=== PATIENT | female | born 1950 | race Caucasian/White ===

== ENCOUNTER → 2016-06-02 | Outpatient (CLI) | payer BC ==
[~2016-06-02] MED LIST: CHOL200010 PO; ESCI10TA17 PO; IBUP-1451 PO; LEVO88TA PO
--- NOTE | 2016-06-02 16:38 | MAMMOGRAPHY REPORT ---
BILATERAL DIGITAL SCREENING MAMMOGRAM WITH CAD: 06/02/2016 CLINICAL HISTORY: Routine screening. Patient has no complaints. TECHNIQUE: Bilateral CC and MLO views were obtained. Current study was also evaluated with a Comput er Aided Detection (CAD) system. COMPARISON: Comparison is made to exams dated: 05/29/2015 mammogram, 05/24/2014 mammogram, 05/20/2013 mammogram, 04/12/2012 mammogram, 04/02/2010 mammogram, and 03/22/2009 mammogram - [facility]. BREAST COMPOSITION: The tissue of both breasts is almost entirely fatty. FINDINGS: There is a stable intramammary lymph node in the right upper outer quadrant. Scattered st able benign-appearing microcalcifications bilaterally. No suspicious mass, architectural distortion or cluster of microcalcifications is seen. IMPRESSION: ACR BI-RADS CATEGORY 1: NEGATIVE There is no mammographic evidence of malignancy. A 1 year screening mammogram is recommended. The p atient will receive written notification of the results. Approximately 10% of breast cancers are not detected with mammography. A negative mammographic repor t should not delay biopsy if a clinically suggestive mass is present. Ericka Deutsch M.D. ay/:06/02/2016 16:09:56 Electrician Maintenance: Edwige DHILLON([place])(Val), [facility] letter sent: Normal 1/2 BI-RADS Code: ACR BI-RADS Category 1: Negative
== END | disposition home or self-care (01) ==
LOC: C.MAMM 08:07
PROVIDERS: ATTEND Internal Medicine
DX: Z12.31 Encounter for screening mammogram for malignant neoplasm of breast (principal)

== ENCOUNTER → 2016-12-05 | Outpatient (CLI) | payer BC ==
--- NOTE | 2016-12-05 12:03 | DIAGNOSTIC IMAGING REPORT ---
CT LUNG SCREENING, LOW DOSE WITH COMPUTER-AIDED DETECTION (CAD) CLINICAL HISTORY: Smoking history. Family history of lung cancer. COMPARISON STUDY: Screening low dose chest CT December 11, 2015. CT DOSE: 82.18 mGy.cm TECHNIQUE: Low-dose helical CT was acquired without intravenous contrast from lung apices to bases and reconstructed at 2.5 mm every 2 mm. CAD was utilized for this study. A dose lowering technique was utilized adhering to the principles of ALARA. FINDINGS: No enlarged axillary, mediastinal or hilar lymph nodes are present. The heart is moderately enlarged. There is no pericardial effusion. No suspicious nodules are present. Mild groundglass opacity suggest atelectasis. There is no consolidation to suggest pneumonia. Bony thorax is unremarkable. There are postoperative findings involving the stomach. IMPRESSION: 1. No suspicious pulmonary nodules. 2. Moderate cardiomegaly. 3. No acute intrathoracic findings. CAD FINDINGS: Overall Lung RADS Category: 1 Lung RADS Management Recommendation: Continue routine annual screening on December 05, 2017. Lung RADS Follow Up Date: December 05, 2017. Lung RADS Nodule ID: Electronically signed by: Ap Deng M.D. 12/05/2016 12:01 PM Dictated Date/Time: 12/05/2016 11:50 AM
== END | disposition home or self-care (01) ==
LOC: C.CTS 10:47
PROVIDERS: ATTEND Internal Medicine Pulmonary Disease
DX: Z80.1 Family history of malignant neoplasm of trachea, bronchus and lung (principal); I51.7 Cardiomegaly

== ENCOUNTER 2017-04-20 20:39 | Emergency (ER) | payer BC ==
[~2017-04-20] VITALS: Ht 165.1 cm; Wt 115.0 kg
[2017-04-20] MEDS ORDERED: ONDANSETRON INJ 2 MG/ML 2 ML VIAL IV STA (20:44)
[2017-04-20] MEDS ORDERED: MoRPHine SULFATE 4 MG/ML 1 ML CARP\\VIAL IV PRN (20:45)
[2017-04-20 20:46] VITALS: TEMP 36.8; Ht 165.1 cm; Wt 115.0 kg
[2017-04-20] MEDS ORDERED: LIDOCAINE/EPINEPH/TETRACAINE 1 EA SYR EXT STA (20:47)
[2017-04-20] MEDS ORDERED: MULT-513 PO (21:02)
[2017-04-20] MEDS ORDERED: LXP10 PO (21:02)
[2017-04-20] MEDS ORDERED: LEVO100T7 PO (21:02)
[2017-04-20] MEDS ORDERED: ATV5X PO (21:02)
[2017-04-20 21:08] LABS: BASO % 0.3 %; BASO ABS # 0.03 K/uL (0-0.2); EOS % 5.9 %; EOS ABS # 0.56 K/uL (0-0.5); HEMATOCRIT 42.7 % (37-47); HEMOGLOBIN 14.2 g/dL (12.0-16.0); IG# 0.02 K/uL (0.00-0.02); LYMPH ABS # 2.67 K/uL (1.2-3.4); MEAN CORPUSCULAR HEMOGLOBIN 29.3 pg (25-34); MEAN CORPUSCULAR HGB CONC 33.3 g/dl (32-36); MEAN PLATELET VOLUME 11.8 fL (7.4-10.4); MONO % 7.4 %; MONO ABS # 0.71 K/uL (0.11-0.59); NEUT % 58.2 %; NEUT ABS # 5.56 K/uL (1.4-6.5); PLATELET COUNT 232 K/uL (130-400); RED CELL DISTRIBUTION WIDTH CV 13.6 % (11.5-14.5); RED CELL DISTRIBUTION WIDTH SD 43.6 fL (36.4-46.3); WHITE BLOOD COUNT 9.55 K/uL (4.8-10.8)
[2017-04-20 21:21] LABS: PTT PATIENT 25.9 SECONDS (21.0-31.0)
[2017-04-20 21:22] LABS: ALBUMIN 3.5 gm/dl (3.4-5.0); ALT/SGPT 25 U/L (12-78); BLOOD UREA NITROGEN 25 mg/dl (7-18); CARBON DIOXIDE 27 mmol/L (21-32); CREATININE 1.07 mg/dl (0.60-1.20); GLUCOSE 95 mg/dl (70-99); POTASSIUM 3.7 mmol/L (3.5-5.1); SODIUM 141 mmol/L (136-145)
[2017-04-20 21:24] LABS: ALKALINE PHOSPHATASE 82 U/L (45-117); AST/SGOT 21 U/L (15-37); TOTAL PROTEIN 6.8 gm/dl (6.4-8.2)
--- NOTE | 2017-04-20 21:25 | DIAGNOSTIC IMAGING REPORT ---
R WRIST MIN 3 VIEWS ROUTINE CLINICAL HISTORY: fall trauma COMPARISON: None. DISCUSSION: Evidence for prior plate fixation of the distal radius. Small avulsion ulnar styloid considered old. Moderate degenerative changes throughout. No well-defined acute bony abnormality. Mild soft tissue edema. There is no evidence for soft tissue swelling. IMPRESSION: Mild soft tissue edema. Postoperative change. No acute bony abnormality. The above report was generated using voice recognition software. It may contain grammatical, syntax or spelling errors. Electronically signed by: Christian Red M.D. 04/20/2017 9:24 PM Dictated Date/Time: 04/20/2017 9:23 PM
--- NOTE | 2017-04-20 21:26 | DIAGNOSTIC IMAGING REPORT ---
CHEST ONE VIEW PORTABLE CLINICAL HISTORY: fall trauma COMPARISON STUDY: 01/18/2015 FINDINGS: The bones soft tissues and hemidiaphragms are normal. The cardiomediastinal silhouette is normal. The lungs are clear. The pulmonary vasculature is normal. IMPRESSION: Negative chest. The above report was generated using voice recognition software. It may contain grammatical, syntax or spelling errors. Electronically signed by: Christian Red M.D. 04/20/2017 9:24 PM Dictated Date/Time: 04/20/2017 9:24 PM
--- NOTE | 2017-04-20 21:29 | DIAGNOSTIC IMAGING REPORT ---
R HAND MIN 3 VIEWS ROUTINE CLINICAL HISTORY: fall trauma COMPARISON: None. DISCUSSION: No evidence for acute bony pathology. PROCEDURE: Described as a degenerative and postoperative change. Significant degenerative change first carpometacarpal joint. Mild soft tissue edema. IMPRESSION: Soft tissue edema. No acute bony abnormality. The above report was generated using voice recognition software. It may contain grammatical, syntax or spelling errors. Electronically signed by: Christian Red M.D. 04/20/2017 9:28 PM Dictated Date/Time: 04/20/2017 9:25 PM
--- NOTE | 2017-04-20 21:35 | DIAGNOSTIC IMAGING REPORT ---
L HAND MIN 3 VIEWS ROUTINE CLINICAL HISTORY: fall trauma COMPARISON: None. DISCUSSION: Mild generalized degenerative change. Moderate degenerative change first carpometacarpal joint. Small old avulsion dorsal aspect of the carpal bones. Margins are well corticated. Soft tissue edema. IMPRESSION: Degenerative change and soft tissue edema. No acute bony abnormality. The above report was generated using voice recognition software. It may contain grammatical, syntax or spelling errors. Electronically signed by: Christian Red M.D. 04/20/2017 9:34 PM Dictated Date/Time: 04/20/2017 9:33 PM
--- NOTE | 2017-04-20 21:38 | DIAGNOSTIC IMAGING REPORT ---
L WRIST MIN 3 VIEWS ROUTINE CLINICAL HISTORY: fall trauma COMPARISON: None. DISCUSSION: The bones and joint spaces appear intact. There is no evidence of fracture, dislocation or bony disease. Generalized soft tissue edema IMPRESSION: Soft tissue edema. No acute bony abnormality. The above report was generated using voice recognition software. It may contain grammatical, syntax or spelling errors. Electronically signed by: Christian Red M.D. 04/20/2017 9:37 PM Dictated Date/Time: 04/20/2017 9:36 PM
[2017-04-20] MEDS ORDERED: CEFAZOLIN IV 2,000 MG in DEXTROSE 5% 50ML 50 ML IV STA (21:39)
[2017-04-20] MEDS ORDERED: XYLOCAINE 1%/SOD BICARB 20 ML VIAL INFIL ONE (21:55)
--- NOTE | 2017-04-20 21:55 | DIAGNOSTIC IMAGING REPORT ---
HEAD WITHOUT CONTRAST (CT) CT DOSE: HISTORY: Trauma. Pain. fall TECHNIQUE: Multiaxial CT images of the head were performed without the use of intravenous contrast. A dose lowering technique was utilized adhering to the principles of ALARA. Comparison: None. Findings: The paranasal sinuses and mastoid air cells are clear. The calvarium and skull base are intact. The ventricles and sulci are within normal limits. There is no mass, hematoma, midline shift, or acute infarct. Impression: No acute intracranial abnormality. Mild age-related atrophy and chronic small vessel change. The above report was generated using voice recognition software. It may contain grammatical, syntax or spelling errors. Electronically signed by: Christian Red M.D. 04/20/2017 9:53 PM Dictated Date/Time: 04/20/2017 9:53 PM
--- NOTE | 2017-04-20 21:57 | DIAGNOSTIC IMAGING REPORT ---
CERVICAL SPINE W/O CT DOSE: 1098.19 mGy.cm HISTORY: Trauma. Pain. fall TECHNIQUE: Multiaxial CT images of the cervical spine were performed and reformatted in the sagittal and coronal plane without the use of contrast. A dose lowering technique was utilized adhering to the principles of ALARA. COMPARISON: None. FINDINGS: No fractures. No subluxation. Prevertebral soft tissues and the C1-C2 interval are intact. No pneumothorax. Muscle spasm. Mild degenerative disc change IMPRESSION: No fractures within the cervical spine. Mild degenerative change. Muscle spasm. The above report was generated using voice recognition software. It may contain grammatical, syntax or spelling errors. Electronically signed by: Christian Red M.D. 04/20/2017 9:56 PM Dictated Date/Time: 04/20/2017 9:54 PM
--- NOTE | 2017-04-20 22:42 | EMERGENCY ROOM VISIT NOTE ---
History Report prepared by Geo: Brielle Horan Under the Supervision of: Dr. David Taylor D.O. First contact with patient: 20:40 Chief Complaint: FALL Stated Complaint: FALL, LACERATIONS TO HEAD, PAIN BOTH WRIST History of Present Illness The patient is a 67 year old female who presents to the Emergency Room with complaints of an episode of fall COUTURIERE. She presents to the ED by EMS. The patient was playing tennis when she fell forward onto her hands. She did hit her head and is having bleeding from her head. She has bilateral wrist pain and swelling. She denies any LOC, elbow pain, back pain, or leg pain. Her tetanus is up to date. She has a history of right wrist fracture. Source of History: patient, EMS Onset: COUTURIERE Position: other (global) Quality: other (fall) Timing: other (episodic) Associated Symptoms: No LOC, No back pain Note: Pt reports wrist pain. Review of Systems See HPI for pertinent positives & negatives. A total of 10 systems reviewed and were otherwise negative. Past Medical & Surgical Medical Problems: (1) Body Mass Index 40 And Over, Adult (2) Distal radius fracture, right (3) Hypothyroidism Nos (4) Hypothyroidism Nos (5) Morbid Obesity Surgical Problems: (1) Gastric bypass status for obesity Family History GI disorders Social History Smoking Status: Never Smoker Alcohol Use: occasionally Housing Status: lives alone Occupation Status: employed Current/Historical Medications Scheduled Cephalexin Monohydrate (Keflex), 500 MG PO QID Cholecalciferol (Vitamin D), 2,000 INT-UNIT PO DAILY Escitalopram Oxalate (Escitalopram Oxalate), 10 MG PO DAILY Levothyroxine Sodium (Levothyroxine Sodium), 100 MCG PO QAM Multivitamins/Minerals (Mvi With Minerals), 1 TAB PO DAILY Scheduled PRN Lorazepam (Lorazepam), 0.25-0.5 MG PO BID PRN for Anxiety Allergies Coded Allergies: Nickel (Verified Allergy, Unknown, LOCAL CONTRACT DERMITIS, 07/06/09) Ephedrine (Verified Adverse Reaction, Unknown, RACING HEART RATE, 07/06/09) Physical Exam Vital Signs Date Time Temp Pulse Resp B/P (MAP) Pulse Ox O2 Delivery O2 Flow Rate FiO2 04/20/17 23:25 66 16 142/85 97 04/20/17 22:48 53 20 126/78 97 Room Air 04/20/17 20:49 62 04/20/17 20:46 36.8 66 18 147/77 100 Room Air Physical Exam GENERAL: Patient is awake, alert, very anxious appearing. HEAD: There were 2 superficial lacerations over the forehead. Dentition was intact. EYES: The conjunctivae are clear. The pupils are round and reactive. EARS, NOSE, MOUTH AND THROAT: The nose is without any evidence of any deformity. Mucous membranes are moist tongue is midline NECK: The neck is nontender and supple. RESPIRATORY: Normal respiratory effort is noted there is no evidence of wheezing rhonchi or rales CARDIOVASCULAR: Regular rate and rhythm noted there no murmurs rubs or gallops normal S1 normal S2 GASTROINTESTINAL: The abdomen is soft. Bowel sounds are present in all quadrants. Abdomen is nontender MUSCULOSKELETAL/EXTREMITIES: There were deformities over both wrists. There were 2 superficial abrasions to the lateral aspect of the right hand. Laceration over the lateral aspect of the left hand. No active bleeding was noted. SKIN: There is no obvious evidence of any rash. There are no petechiae, pallor or cyanosis noted. No pedal edema noted. NEUROLOGIC: Patient is awake alert and oriented x3 strength is symmetric patellar reflexes are 2+ bilaterally Medical Decision & Procedures ER Provider Diagnostic Interpretation: X-ray results as stated below per interpretation by me and the radiologist. Radiology results as stated below per my review and radiologist interpretation: L WRIST MIN 3 VIEWS ROUTINE CLINICAL HISTORY: fall trauma COMPARISON: None. DISCUSSION: The bones and joint spaces appear intact. There is no evidence of fracture, dislocation or bony disease. Generalized soft tissue edema IMPRESSION: Soft tissue edema. No acute bony abnormality. The above report was generated using voice recognition software. It may contain grammatical, syntax or spelling errors. Electronically signed by: Christian Red M.D. 04/20/2017 9:37 PM Dictated Date/Time: 04/20/2017 9:36 PM R WRIST MIN 3 VIEWS ROUTINE CLINICAL HISTORY: fall trauma COMPARISON: None. DISCUSSION: Evidence for prior plate fixation of the distal radius. Small avulsion ulnar styloid considered old. Moderate degenerative changes throughout. No well-defined acute bony abnormality. Mild soft tissue edema. There is no evidence for soft tissue swelling. IMPRESSION: Mild soft tissue edema. Postoperative change. No acute bony abnormality. The above report was generated using voice recognition software. It may contain grammatical, syntax or spelling errors. Electronically signed by: Christian Red M.D. 04/20/2017 9:24 PM Dictated Date/Time: 04/20/2017 9:23 PM L HAND MIN 3 VIEWS ROUTINE CLINICAL HISTORY: fall trauma COMPARISON: None. DISCUSSION: Mild generalized degenerative change. Moderate degenerative change first carpometacarpal joint. Small old avulsion dorsal aspect of the carpal bones. Margins are well corticated. Soft tissue edema. IMPRESSION: Degenerative change and soft tissue edema. No acute bony abnormality. The above report was generated using voice recognition software. It may contain grammatical, syntax or spelling errors. Electronically signed by: Christian Red M.D. 04/20/2017 9:34 PM Dictated Date/Time: 04/20/2017 9:33 PM R HAND MIN 3 VIEWS ROUTINE CLINICAL HISTORY: fall trauma COMPARISON: None. DISCUSSION: No evidence for acute bony pathology. PROCEDURE: Described as a degenerative and postoperative change. Significant degenerative change first carpometacarpal joint. Mild soft tissue edema. IMPRESSION: Soft tissue edema. No acute bony abnormality. The above report was generated using voice recognition software. It may contain grammatical, syntax or spelling errors. Electronically signed by: Christian Red M.D. 04/20/2017 9:28 PM Dictated Date/Time: 04/20/2017 9:25 PM CHEST ONE VIEW PORTABLE CLINICAL HISTORY: fall trauma COMPARISON STUDY: 01/18/2015 FINDINGS: The bones soft tissues and hemidiaphragms are normal. The cardiomediastinal silhouette is normal. The lungs are clear. The pulmonary vasculature is normal. IMPRESSION: Negative chest. The above report was generated using voice recognition software. It may contain grammatical, syntax or spelling errors. Electronically signed by: Christian Red M.D. 04/20/2017 9:24 PM Dictated Date/Time: 04/20/2017 9:24 PM HEAD WITHOUT CONTRAST (CT) CT DOSE: HISTORY: Trauma. Pain. fall TECHNIQUE: Multiaxial CT images of the head were performed without the use of intravenous contrast. A dose lowering technique was utilized adhering to the principles of ALARA. Comparison: None. Findings: The paranasal sinuses and mastoid air cells are clear. The calvarium and skull base are intact. The ventricles and sulci are within normal limits. There is no mass, hematoma, midline shift, or acute infarct. Impression: No acute intracranial abnormality. Mild age-related atrophy and chronic small vessel change. The above report was generated using voice recognition software. It may contain grammatical, syntax or spelling errors. Electronically signed by: Christian Red M.D. 04/20/2017 9:53 PM Dictated Date/Time: 04/20/2017 9:53 PM CERVICAL SPINE W/O CT DOSE: 1098.19 mGy.cm HISTORY: Trauma. Pain. fall TECHNIQUE: Multiaxial CT images of the cervical spine were performed and reformatted in the sagittal and coronal plane without the use of contrast. A dose lowering technique was utilized adhering to the principles of ALARA. COMPARISON: None. FINDINGS: No fractures. No subluxation. Prevertebral soft tissues and the C1-C2 interval are intact. No pneumothorax. Muscle spasm. Mild degenerative disc change IMPRESSION: No fractures within the cervical spine. Mild degenerative change. Muscle spasm. The above report was generated using voice recognition software. It may contain grammatical, syntax or spelling errors. Electronically signed by: Christian Red M.D. 04/20/2017 9:56 PM Dictated Date/Time: 04/20/2017 9:54 PM Laboratory Results 04/20/17 20:55 Red Blood Count 4.85, Mean Corpuscular Volume 88.0, Mean Corpuscular Hemoglobin 29.3, Mean Corpuscular Hemoglobin Concent 33.3, Mean Platelet Volume 11.8, Neutrophils (%) (Auto) 58.2, Lymphocytes (%) (Auto) 28.0, Monocytes (%) (Auto) 7.4, Eosinophils (%) (Auto) 5.9, Basophils (%) (Auto) 0.3, Neutrophils # (Auto) 5.56, Lymphocytes # (Auto) 2.67, Monocytes # (Auto) 0.71, Eosinophils # (Auto) 0.56, Basophils # (Auto) 0.03 04/20/17 20:55 Test 04/20/17 20:55 White Blood Count 9.55 K/uL (4.8-10.8) Red Blood Count 4.85 M/uL (4.2-5.4) Hemoglobin 14.2 g/dL (12.0-16.0) Hematocrit 42.7 % (37-47) Mean Corpuscular Volume 88.0 fL (80-100) Mean Corpuscular Hemoglobin 29.3 pg (25-34) Mean Corpuscular Hemoglobin Concent 33.3 g/dl (32-36) Platelet Count 232 K/uL (130-400) Mean Platelet Volume 11.8 fL (7.4-10.4) Neutrophils (%) (Auto) 58.2 % Lymphocytes (%) (Auto) 28.0 % Monocytes (%) (Auto) 7.4 % Eosinophils (%) (Auto) 5.9 % Basophils (%) (Auto) 0.3 % Neutrophils # (Auto) 5.56 K/uL (1.4-6.5) Lymphocytes # (Auto) 2.67 K/uL (1.2-3.4) Monocytes # (Auto) 0.71 K/uL (0.11-0.59) Eosinophils # (Auto) 0.56 K/uL (0-0.5) Basophils # (Auto) 0.03 K/uL (0-0.2) RDW Standard Deviation 43.6 fL (36.4-46.3) RDW Coefficient of Variation 13.6 % (11.5-14.5) Immature Granulocyte % (Auto) 0.2 % Immature Granulocyte # (Auto) 0.02 K/uL (0.00-0.02) Prothrombin Time 10.0 SECONDS (9.0-12.0) Prothromb Time International Ratio 1.0 (0.9-1.1) Activated Partial Thromboplast Time 25.9 SECONDS (21.0-31.0) Partial Thromboplastin Ratio 1.0 Anion Gap 8.0 mmol/L (3-11) Est Creatinine Clear Calc Drug Dose 64.6 ml/min Estimated GFR () 62.2 Estimated GFR (Non- 53.7 BUN/Creatinine Ratio 23.5 (10-20) Calcium Level 10.0 mg/dl (8.5-10.1) Total Bilirubin 0.3 mg/dl (0.2-1) Direct Bilirubin < 0.1 mg/dl (0-0.2) Aspartate Amino Transf (AST/SGOT) 21 U/L (15-37) Alanine Aminotransferase (ALT/SGPT) 25 U/L (12-78) Alkaline Phosphatase 82 U/L (45-117) Total Protein 6.8 gm/dl (6.4-8.2) Albumin 3.5 gm/dl (3.4-5.0) Laboratory results per my review. Medications Administered Medications (Trade) Dose Ordered Sig/Dede Route Start Time Stop Time Status Last Admin Dose Admin Morphine Sulfate (MoRPHine SULFATE INJ) 4 mg Q15M PRN IV 04/20/17 20:45 04/21/17 00:06 DC 04/20/17 21:22 4 MG Ondansetron HCl (Zofran Inj) 4 mg NOW STAT IV 04/20/17 20:44 04/20/17 20:47 DC 04/20/17 21:22 4 MG Tetracaine/ Epinephrine/ Lidocaine (L.e.t. Gel 4%/ 1:100/0.5%) 1 ea UD STAT EXT 04/20/17 20:47 04/20/17 20:48 DC 04/20/17 20:47 1 EA Cefazolin Sodium 2000 mg/Dextrose 65 ml @ 100 mls/hr ONE STAT IV 04/20/17 21:39 04/20/17 22:17 DC 04/20/17 22:42 100 MLS/HR Cephalexin Monohydrate (Keflex 500MG Home Pack) 1 homepack NOW ONCE PO 04/20/17 23:00 04/20/17 23:01 DC 04/20/17 23:06 1 HOMEPACK Oxycodone HCl (Roxicodone Immediate Rel 5MG Home Pack) 1 homepack UD ONCE PO 04/20/17 23:00 04/20/17 23:01 DC 04/20/17 23:07 1 HOMEPACK Ondansetron HCl (ZOFRAN ODT 4MG Home Pack) 1 homepack UD ONCE PO 04/20/17 23:00 04/20/17 23:01 DC 04/20/17 23:06 1 HOMEPACK ED Course 2039: The patient was evaluated in room B1. A complete history and physical examination were performed. 2043: Zofran Inj 4 mg IV. 2044: Morphine Sulfate 4 mg IV. 2046: LET Gel EXT. 2138: Cefazolin Sodium 2000 mg/Dextrose 65 ml @ 100 mls/hr IV. 2258: Upon reevaluation, the patient is resting comfortably. I discussed the results and treatment plan with her. She verbalized agreement of the treatment plan. She was discharged home. 2299: Oxycodone HCl 1 homepack PO, Ondansetron HCl 1 homepack PO, Keflex 500 mg 1 homepack PO. Medical Decision Prior records/ancillary studies reviewed. Triage Nursing notes reviewed. Additional history obtained from EMS. The patient's history was concerning for traumatic injury Differential diagnosis: Etiologies such as fracture, dislocation, intra-abdominal, pneumothorax, intrathoracic , intracranial, neurologic, as well as other traumatic pathologies were entertained. The patient is a 67-year-old female who presented to the emergency department for an evaluation of injury to both arms and head injury. The patient had a fall while she was playing tennis. Initially thought she had bilateral wrist fractures because of the amount of swelling and tenderness over the hands and wrists radiographic studies were obtained and failed to reveal any definite bony injury. I discussed patient's laboratory and radiographic studies with her. She was treated with pain medication in the emergency department. She was encouraged to rest and avoid any strenuous activity. I also encouraged her to follow-up with her primary care physician for further evaluation and continue all medications as prescribed. She was also encouraged to return the emergency department immediately if symptoms change worsening the need arises. Head Trauma GCS Score: 15 Medication Reconcilliation Current Medication List: was personally reviewed by me Blood Pressure Screening Patient's blood pressure: Elevated blood pressure Blood pressure disposition: Elevated BP felt to be situational Impression Primary Impression: Fall Additional Impressions: Left wrist sprain Right wrist sprain Contusion of left hand Contusion of right hand Laceration of left wrist Forehead laceration Head injury Scribe Attestation The scribe's documentation has been prepared under my direction and personally reviewed by me in its entirety. I confirm that the note above accurately reflects all work, treatment, procedures, and medical decision making performed by me. Departure Information Dispostion Home / Self-Care Prescriptions Cephalexin Monohydrate (KEFLEX) 500 Mg Cap 500 MG PO QID, #20 CAP Prov: David Taylor, DO 04/20/17 Referrals David Gomez M.D. (PCP) Forms HOME CARE DOCUMENTATION FORM, IMPORTANT VISIT INFORMATION Patient Instructions ED Head Injury Closed, ED Laceration All, My [facility], Wrist Sprain Additional Instructions Continue all medications as prescribed. Continue using Motrin and Tylenol as directed for mild pain. Follow-up with your family doctor for recheck this week. I would also recommend suture removal in 7-10 days. Return to the emergency department immediately if symptoms change worsening the need arises. Problem Qualifiers Primary Impression: Fall Encounter type: initial encounter Qualified Codes: W19.XXXA - Unspecified fall, initial encounter Additional Impressions: Left wrist sprain Encounter type: initial encounter Qualified Codes: S63.502A - Unspecified sprain of left wrist, initial encounter Right wrist sprain Encounter type: initial encounter Qualified Codes: S63.501A - Unspecified sprain of right wrist, initial encounter Contusion of left hand Encounter type: initial encounter Qualified Codes: S60.222A - Contusion of left hand, initial encounter Contusion of right hand Encounter type: initial encounter Qualified Codes: S60.221A - Contusion of right hand, initial encounter Laceration of left wrist Encounter type: initial encounter Qualified Codes: S61.512A - Laceration without foreign body of left wrist, initial encounter Forehead laceration Encounter type: initial encounter Qualified Codes: S01.81XA - Laceration without foreign body of other part of head, initial encounter Head injury Encounter type: initial encounter Qualified Codes: S09.90XA - Unspecified injury of head, initial encounter
[2017-04-20] MEDS ORDERED: CEPH500C2 PO (22:57)
[2017-04-20] MEDS ORDERED: OXYCODONE IR HOME PACK PO ONE (23:00)
[2017-04-20] MEDS ORDERED: ONDANSETRON HOME PACK 4MG OD TAB PO ONE (23:00)
[2017-04-20] MEDS ORDERED: CEPHALEXIN 500MG HOME PACK 1 EA BTL PO ONE (23:00)
[2017-04-20 23:25] VITALS: BP 142/85; PULSE 66; O2SAT 97
--- NOTE | 2017-04-21 03:40 | EMERGENCY ROOM VISIT NOTE ---
ED Visit Note Patient was seen and evaluated the request of my attending physician, Dr. Taylor , for right hand and forehead lacerations. Please see Dr. Taylor dictation for full history of present illness and emergency Department course outside of these repairs. In short, the patient had a fall with subsequent injury. The patient has a 3.5 cm ragged laceration on the dorsum of the right hand that does gape and will require repair. She additionally has a superficial 2.0 cm abrasion/small laceration parallel to this. This laceration was cleansed and repaired using Dermabond. Additionally there are 2 small lacerations to the forehead, the first measuring 1.0 cm, and the other measuring 1.5 cm. The larger of these forehead lacerations gapes minimally and will require repair. The smaller was cleansed and repaired using Dermabond. Hand Laceration repair. Patient elects to have their laceration repaired. Verbal consent was obtained to perform the procedure. There is an abundance of materials available for the procedure. Patient is not allergic to latex. Using sterile technique the wound was cleaned with Betadine. The area was sterilely draped. 8 ml of 1% buffered lidocaine was used to anesthetize the right hand laceration. Once the patient was anesthetized, the wound was copiously irrigated under pressure with sterile saline. The wound was explored and there were no deep structures injured such as tendons, bone, or significant blood vessels. The laceration was repaired using 8 simple interrupted 4-0 nylon sutures with the wound edges being well approximated. Hemostasis was achieved. The area was cleaned with sterile saline and dressed with bacitracin ointment and bandage. Patient tolerated the procedure well without complications. Blood loss was negligible. Forehead Laceration repair. Patient elects to have their laceration repaired. Verbal consent was obtained to perform the procedure. There is an abundance of materials available for the procedure. Using sterile technique the wound was cleaned with Betadine. The area was sterilely draped. LET gel was used to anesthetize the forehead. Once the patient was anesthetized, the wound was copiously irrigated under pressure with sterile saline. The wound was explored and there were no deep structures injured such as tendons, bone, or significant blood vessels. The laceration was repaired using 1 simple interrupted 6-0 nylon sutures with the wound edges being well approximated. Hemostasis was achieved. The area was cleaned with sterile saline and dressed with bacitracin ointment and bandage. Blood loss was negligible and the patient tolerated the procedure well. Overall the patient did well with her laceration repair's. I refer you back to Dr. Brandon murphy for patient course and disposition. Problem List Medical Problems: (1) Distal radius fracture, right Status: Resolved (2) Hypothyroidism Nos Status: Chronic Surgical Problems: (1) Gastric bypass status for obesity Status: Resolved Current/Historical Medications Scheduled Cephalexin Monohydrate (Keflex), 500 MG PO QID Cholecalciferol (Vitamin D), 2,000 INT-UNIT PO DAILY Escitalopram Oxalate (Escitalopram Oxalate), 10 MG PO DAILY Levothyroxine Sodium (Levothyroxine Sodium), 100 MCG PO QAM Multivitamins/Minerals (Mvi With Minerals), 1 TAB PO DAILY Scheduled PRN Lorazepam (Lorazepam), 0.25-0.5 MG PO BID PRN for Anxiety Allergies Coded Allergies: Nickel (Verified Allergy, Unknown, LOCAL CONTRACT DERMITIS, 07/06/09) Ephedrine (Verified Adverse Reaction, Unknown, RACING HEART RATE, 07/06/09) Vital Signs Date Time Temp Pulse Resp B/P (MAP) Pulse Ox O2 Delivery O2 Flow Rate FiO2 04/20/17 23:25 66 16 142/85 97 04/20/17 22:48 53 20 126/78 97 Room Air 04/20/17 20:49 62 04/20/17 20:46 36.8 66 18 147/77 100 Room Air Laboratory Results 04/20/17 20:55 Red Blood Count 4.85, Mean Corpuscular Volume 88.0, Mean Corpuscular Hemoglobin 29.3, Mean Corpuscular Hemoglobin Concent 33.3, Mean Platelet Volume 11.8, Neutrophils (%) (Auto) 58.2, Lymphocytes (%) (Auto) 28.0, Monocytes (%) (Auto) 7.4, Eosinophils (%) (Auto) 5.9, Basophils (%) (Auto) 0.3, Neutrophils # (Auto) 5.56, Lymphocytes # (Auto) 2.67, Monocytes # (Auto) 0.71, Eosinophils # (Auto) 0.56, Basophils # (Auto) 0.03 04/20/17 20:55 Test 04/20/17 20:55 White Blood Count 9.55 K/uL (4.8-10.8) Red Blood Count 4.85 M/uL (4.2-5.4) Hemoglobin 14.2 g/dL (12.0-16.0) Hematocrit 42.7 % (37-47) Mean Corpuscular Volume 88.0 fL (80-100) Mean Corpuscular Hemoglobin 29.3 pg (25-34) Mean Corpuscular Hemoglobin Concent 33.3 g/dl (32-36) Platelet Count 232 K/uL (130-400) Mean Platelet Volume 11.8 fL (7.4-10.4) Neutrophils (%) (Auto) 58.2 % Lymphocytes (%) (Auto) 28.0 % Monocytes (%) (Auto) 7.4 % Eosinophils (%) (Auto) 5.9 % Basophils (%) (Auto) 0.3 % Neutrophils # (Auto) 5.56 K/uL (1.4-6.5) Lymphocytes # (Auto) 2.67 K/uL (1.2-3.4) Monocytes # (Auto) 0.71 K/uL (0.11-0.59) Eosinophils # (Auto) 0.56 K/uL (0-0.5) Basophils # (Auto) 0.03 K/uL (0-0.2) RDW Standard Deviation 43.6 fL (36.4-46.3) RDW Coefficient of Variation 13.6 % (11.5-14.5) Immature Granulocyte % (Auto) 0.2 % Immature Granulocyte # (Auto) 0.02 K/uL (0.00-0.02) Prothrombin Time 10.0 SECONDS (9.0-12.0) Prothromb Time International Ratio 1.0 (0.9-1.1) Activated Partial Thromboplast Time 25.9 SECONDS (21.0-31.0) Partial Thromboplastin Ratio 1.0 Anion Gap 8.0 mmol/L (3-11) Est Creatinine Clear Calc Drug Dose 64.6 ml/min Estimated GFR () 62.2 Estimated GFR (Non- 53.7 BUN/Creatinine Ratio 23.5 (10-20) Calcium Level 10.0 mg/dl (8.5-10.1) Total Bilirubin 0.3 mg/dl (0.2-1) Direct Bilirubin < 0.1 mg/dl (0-0.2) Aspartate Amino Transf (AST/SGOT) 21 U/L (15-37) Alanine Aminotransferase (ALT/SGPT) 25 U/L (12-78) Alkaline Phosphatase 82 U/L (45-117) Total Protein 6.8 gm/dl (6.4-8.2) Albumin 3.5 gm/dl (3.4-5.0) Medications Administered Medications (Trade) Dose Ordered Sig/Dede Route Start Time Stop Time Status Last Admin Dose Admin Morphine Sulfate (MoRPHine SULFATE INJ) 4 mg Q15M PRN IV 04/20/17 20:45 04/21/17 00:06 DC 04/20/17 21:22 4 MG Ondansetron HCl (Zofran Inj) 4 mg NOW STAT IV 04/20/17 20:44 04/20/17 20:47 DC 04/20/17 21:22 4 MG Tetracaine/ Epinephrine/ Lidocaine (L.e.t. Gel 4%/ 1:100/0.5%) 1 ea UD STAT EXT 04/20/17 20:47 04/20/17 20:48 DC 04/20/17 20:47 1 EA Cefazolin Sodium 2000 mg/Dextrose 65 ml @ 100 mls/hr ONE STAT IV 04/20/17 21:39 04/20/17 22:17 DC 04/20/17 22:42 100 MLS/HR Cephalexin Monohydrate (Keflex 500MG Home Pack) 1 homepack NOW ONCE PO 04/20/17 23:00 04/20/17 23:01 DC 04/20/17 23:06 1 HOMEPACK Oxycodone HCl (Roxicodone Immediate Rel 5MG Home Pack) 1 homepack UD ONCE PO 04/20/17 23:00 04/20/17 23:01 DC 04/20/17 23:07 1 HOMEPACK Ondansetron HCl (ZOFRAN ODT 4MG Home Pack) 1 homepack UD ONCE PO 04/20/17 23:00 04/20/17 23:01 DC 04/20/17 23:06 1 HOMEPACK Departure Information Impression Primary Impression: Fall Additional Impressions: Left wrist sprain Forehead laceration Right wrist sprain Head injury Contusion of left hand Contusion of right hand Laceration of left wrist Dispostion Home / Self-Care Condition GOOD Prescriptions Cephalexin Monohydrate (KEFLEX) 500 Mg Cap 500 MG PO QID, #20 CAP Prov: David Taylor, DO 04/20/17 Referrals David Gomez M.D. (PCP) Forms HOME CARE DOCUMENTATION FORM, IMPORTANT VISIT INFORMATION Patient Instructions Wrist Sprain, My [facility], ED Head Injury Closed, ED Laceration All Additional Instructions Continue all medications as prescribed. Continue using Motrin and Tylenol as directed for mild pain. Follow-up with your family doctor for recheck this week. I would also recommend suture removal in 7-10 days. Return to the emergency department immediately if symptoms change worsening the need arises. Problem Qualifiers
== END 2017-04-20 23:25 | disposition home or self-care (01) ==
LOC: EDBD 20:39 → C.EDB 20:40
DX: S63.502A Unspecified sprain of left wrist, initial encounter (principal); S63.501A Unspecified sprain of right wrist, initial encounter; S60.221A Contusion of right hand, initial encounter; S60.222A Contusion of left hand, initial encounter; S61.512A Laceration without foreign body of left wrist, initial encounter; S01.81XA Laceration without foreign body of other part of head, initial encounter; W01.198A Fall on same level from slipping, tripping and stumbling with subsequent striking against other object, initial encounter; Y93.73 Activity, racquet and hand sports; E03.9 Hypothyroidism, unspecified; Z87.81 Personal history of (healed) traumatic fracture; Z88.8 Allergy status to other drugs, medicaments and biological substances; Z91.048 Other nonmedicinal substance allergy status; Z83.79 Family history of other diseases of the digestive system

== ENCOUNTER → 2017-06-04 | Outpatient (CLI) | payer BC ==
[~2017-06-04] MED LIST changes: +ATV5X PO; +CEPH500C2 PO; -ESCI10TA17 PO; -IBUP-1451 PO; +LEVO100T7 PO; -LEVO88TA PO; +LXP10 PO; +MULT-513 PO
--- NOTE | 2017-06-04 14:43 | MAMMOGRAPHY REPORT ---
BILATERAL DIGITAL SCREENING MAMMOGRAM TOMOSYNTHESIS WITH CAD: 06/04/2017 CLINICAL HISTORY: Routine screening. Patient has no complaints. TECHNIQUE: Breast tomosynthesis in addition to standard 2D mammography was performed. Current study was also evaluated with a Computer Aided Detection (CAD) system. COMPARISON: Comparison is made to exams dated: 06/02/2016 mammogram, 05/29/2015 mammogram, 05/24/2014 ma mmogram, 05/20/2013 mammogram, 04/12/2012 mammogram, and 04/04/2011 mammogram - [facility]. BREAST COMPOSITION: The tissue of both breasts is almost entirely fatty. FINDINGS: No suspicious masses, calcifications, or areas of architectural distortion are noted in ei ther breast. There has been no significant interval change compared to prior exams. IMPRESSION: ACR BI-RADS CATEGORY 1: NEGATIVE There is no mammographic evidence of malignancy. A 1 year screening mammogram is recommended. The pa tient will receive written notification of the results. Approximately 10% of breast cancers are not detected with mammography. A negative mammographic report should not delay biopsy if a clinically suggestive mass is present. Taryn Burnett M.D. /:06/04/2017 09:26:58 [employer] Teacher: Jessica Kay, [facility] letter sent: Normal 1/2 BI-RADS Code: ACR BI-RADS Category 1: Negative
== END | disposition home or self-care (01) ==
LOC: C.MAMM 08:35
PROVIDERS: ATTEND Internal Medicine
DX: Z12.31 Encounter for screening mammogram for malignant neoplasm of breast (principal)

== ENCOUNTER → 2017-10-20 | Outpatient (CLI) | payer BC ==
[2017-10-20 09:32] LABS: HEMATOCRIT 44.2 % (37-47); HEMOGLOBIN 14.3 g/dL (12.0-16.0); MEAN CELL VOLUME 89.1 fL (80-100); MEAN CORPUSCULAR HEMOGLOBIN 28.8 pg (25-34); MEAN CORPUSCULAR HGB CONC 32.4 g/dl (32-36); MEAN PLATELET VOLUME 12.4 fL (7.4-10.4); PLATELET COUNT 246 K/uL (130-400); RED CELL DISTRIBUTION WIDTH SD 45.6 fL (36.4-46.3); WHITE BLOOD COUNT 8.58 K/uL (4.8-10.8)
[2017-10-20 09:43] LABS: HEMOGLOBIN A1C 5.8 % (4.5-5.6)
[2017-10-20 10:02] LABS: BLOOD UREA NITROGEN 19 mg/dl (7-18); CALCIUM 10.1 mg/dl (8.5-10.1); CARBON DIOXIDE 27 mmol/L (21-32); CHOLESTEROL 192 mg/dl (0-200); CREATININE 0.91 mg/dl (0.60-1.20); GLUCOSE 92 mg/dl (70-99); LDL CHOLESTEROL CALCULATED 110 mg/dl; POTASSIUM 4.2 mmol/L (3.5-5.1); SODIUM 141 mmol/L (136-145)
== END | disposition home or self-care (01) ==
LOC: C.LAB1850 07:57
PROVIDERS: ATTEND Internal Medicine
DX: R73.03 Prediabetes (principal); Z98.84 Bariatric surgery status; E55.9 Vitamin D deficiency, unspecified; E03.9 Hypothyroidism, unspecified

== ENCOUNTER 2019-11-04 08:28 | Observation (INO) ==
--- NOTE | 2019-10-26 10:02 | PAT Medication Instructions ---
Medication Instructions Date of Service October 26, 2019 Home Medications Medication Instructions Recorded levothyroxine 100 mcg capsule 100 mcg PO QAM #90 cap 11/23/18 miscellaneous medical supply #1 ea 05/17/19 Wheeled Walker #1 ea 07/22/19 Multi For Her 50 Plus 1 tab PO QAM cholecalciferol (vitamin D3) [Vitamin D3] 2,000 unit PO QAM levothyroxine 100 mcg capsule 100 mcg PO QAM ciprofloxacin-dexamethasone [Ciprodex] 3 drp OTIC (EAR) BID PRN escitalopram oxalate 10 mg PO QAM mirabegron 25 mg PO QAM DO NOT take the morning of surgery Multi For Her 50 Plus 1 tab PO QAM cholecalciferol (vitamin D3) [Vitamin D3] 2,000 unit PO QAM mirabegron 25 mg PO QAM Take morning of surgery With a small sip of water, OTHERWISE NOTHING TO EAT OR DRINK AFTER MIDNIGHT: levothyroxine 100 mcg capsule 100 mcg PO QAM escitalopram oxalate 10 mg PO QAM ciprofloxacin-dexamethasone [Ciprodex] 3 drp OTIC (EAR) BID PRN (if needed) Take evening before surgery ciprofloxacin-dexamethasone [Ciprodex] 3 drp OTIC (EAR) BID PRN (if needed) Other Notes If you have any questions please call us at [phone] or [phone] or [phone] or [phone]
--- NOTE | 2019-10-27 08:46 | Anesthesiology Consultation ---
Date of Service October 27, 2019 Assessment & Plan (1) Encounter for pre-operative examination: COVID Status: As of 10/26 assessment, patient denies travel to endemic area, known exposure/sick contacts, or symptoms of COVID19. Patient instructed that they and their household members must follow strict social distancing guidelines, wear a mask in public and avoid travel for 14 days prior to surgery. Preoperative COVID19 testing to be completed prior to surgery per surgeon's danitza perera (pt reports 10/30). Patient made aware to self-isolate as much as possible between COVID testing and surgery. PATIENT GOES BY TIME PLUS Q Chart Review Chart Review: Acceptable Risk for Surgery and Patient seen in Pre Admission Testing Teaching & Discussion Instructed NPO after midnight before surgery, except medications with 15 cc of water. Medication instructions provided according to the PAT guidelines. History Surgery Operation Date: 11/04/19 08:50 Proposed Procedures p Left Total Knee Replacement - Jhon Beltran MD Height/Weight Height: 5 ft 5 in Weight: 115.9 kg Allergies Allergy/AdvReac Type Severity Reaction Status Date / Time nickel Allergy Unknown LOCAL Verified 10/24/19 09:05 CONTRACT DERMITIS ephedrine AdvReac Unknown RACING Verified 10/24/19 09:05 HEART RATE Medications Home Medications Medication Instructions Recorded Confirmed Last Taken Multi For Her 50 Plus 1 tab PO QAM 11/04/17 10/24/19 11/05/17 08:00 cholecalciferol (vitamin D3) 2,000 unit PO QAM 11/04/17 10/24/19 11/05/17 [Vitamin D3] levothyroxine 100 mcg capsule 100 mcg PO QAM #90 cap 11/23/18 10/24/19 Unknown miscellaneous medical supply #1 ea 05/17/19 10/24/19 Unknown Wheeled Walker #1 ea 07/22/19 10/24/19 Unknown ciprofloxacin-dexamethasone 3 drp OTIC (EAR) BID PRN 10/24/19 10/24/19 Unknown [Ciprodex] escitalopram oxalate 10 mg PO QAM 10/24/19 10/24/19 Unknown mirabegron 25 mg PO QAM 10/24/19 10/24/19 Unknown Past Medical History Medical History (Updated 10/27/19 @ 15:05 by Tristian Lance) Anxiety Hypothyroidism Intraabdominal hemorrhage s/p gastric sleeve/"resolved" Kidney stone Morbid obesity Sleep apnea CPAP Exercise / Class Metabolic Activity II 4-5 Yardwork/Stairs/Walk up hill (Moving slowly 2/2 knee pain but denies CP or SOB with 1 FOS) Past Family History Family History Father Family history of diabetes mellitus Diabetes Hypothyroidism Mother Family history of diabetes mellitus Dementia Hypertension Hypothyroidism Brother Lung cancer Down syndrome Sister Lung cancer Grandfather Diabetes Grandmother (Maternal) Stroke Denies family history of Colon cancer Ovarian cancer Prostate cancer Myocardial infarction Breast cancer Past Surgical History Surgical History History of adenoidectomy History of colonoscopy X3 History of ear surgery R STAPEDECTOMY History of gastric bypass GASTRIC SLEEVE History of hysterectomy PARTIAL ABDOMINAL HYSTERECTOMY History of lithotripsy History of open reduction and internal fixation (ORIF) procedure R WRIST History of tonsillectomy History of tooth extraction WISDOM TEETH History of total knee replacement RIGHT Past Anesthesia History No Hx of Anesthesia Complications and No Family Hx of Anesthesia Complications History of PONV No Hx of PONV and No Hx of Motion Sickness Social History Smoking Status: Former smoker tobacco type: cigarettes Smoking cigarettes per day: 10 per day previously Do You Dip or Chew Tobacco: No Smoking End Date: 18 YRS AGO Hx Alcohol Use: Yes Alcohol type: beer, wine and hard liquor alcohol intake frequency: a few times a month Hx Substance Use: No substance use type: does not use Review of Systems Pt denies any recent chest pain, shortness of breath, palpitations, cough, fever, URI, or uncontrolled acid reflux. Physical Exam Vital Signs BP: 127/82 P: 64bpm SPO2: 97% RA T: 98.3 F R: 16 ENMT Mouth: + dental bridge (lower L side/back); no chipped teeth and no loose teeth Thyromental Distance: > or= 3.5 Finger Breadths (3.5) Mallampati Class: III Neck normal visual inspection; neck extension not limited Respiratory normal respiratory effort Auscultation: lungs clear to auscultation bilaterally Cardiovascular Rate/Rhythm: regular rate and regular rhythm Heart Sounds: no murmur Extremities: no edema Testing Laboratory Results 10/27/19 09:00 10/27/19 09:00 PT 10.2 Seconds (9.0-12.0) 10/27/19 09:00 INR 1.0 (0.9-1.1) 10/27/19 09:00 APTT 29.5 Seconds (21.0-31.0) 10/27/19 09:00 Hemoglobin A1c 5.9 % (4.5-5.6) H 10/27/19 09:00 Blood Type B Negative 10/27/19 09:00 Antibody Screen NEGATIVE 10/27/19 09:00 Electrocardiogram Date: 10/27/19 Findings: + NSR @ (63bpm)
[2019-10-27 10:47] LABS: Basophils # (auto) 0.02 K/uL (0-0.2); Basophils % (auto) 0.3 %; Eosinophils # (auto) 0.29 K/uL (0-0.5); Eosinophils % (auto) 3.7 %; Hematocrit (blood only) 41.8 % (37-47); Hemoglobin 13.8 g/dL (12.0-16.0); Immature Granulocytes # (auto) 0.02 K/uL (0.00-0.02); Immature Granulocytes % (auto) 0.3 %; Lymphocytes # (auto) 2.01 K/uL (1.2-3.4); Lymphocytes % (auto) 25.4 %; Mean Corpuscular Hemoglobin 29.2 pg (25-34); Mean Corpuscular Volume 88.4 fL (80-100); Mean Platelet Volume 12.1 fL (7.4-10.4); Monocytes # (auto) 0.45 K/uL (0.11-0.59); Monocytes % (auto) 5.7 %; Neutrophils # (auto) 5.11 K/uL (1.4-6.5); Neutrophils % (auto) 64.6 %; Platelet Count 220 K/uL (130-400); RDW Coefficient of Variation 13.8 % (11.5-14.5); RDW Standard Deviation 44.6 fL (36.4-46.3); Red Blood Count 4.73 M/uL (4.2-5.4)
[2019-10-27 10:55] LABS: BUN Creatinine Ratio 21.8 (10-20); Calcium 9.9 mg/dl (8.5-10.1); Creatinine Clr Calc Pharmacy 85.5 ml/min; Est GFR (African American) 88.5; Est GFR (Non-African American) 76.4; Potassium 4.2 mmol/L (3.5-5.1)
[2019-10-27 10:57] LABS: Estimated Average Glucose 123 mg/dl; Hemoglobin A1C 5.9 % (4.5-5.6); Partial Thromboplastin Ratio 1.1; Partial Thromboplastin Time 29.5 Seconds (21.0-31.0); Prothrombin Time 10.2 Seconds (9.0-12.0)
--- NOTE | 2019-10-27 13:48 | Electrocardiogram Report ---
Test Reason : Blood Pressure : / mmHG Vent. Rate : 063 BPM Atrial Rate : 063 BPM P-R Int : 176 ms QRS Dur : 100 ms QT Int : 414 ms P-R-T Axes : 059 042 038 degrees QTc Int : 423 ms Normal sinus rhythm Normal ECG When compared with ECG of 04-NOV-2017 13:28, No significant change was found Confirmed by Constantino Dubon ([id number]) on 10/27/2019 1:48:25 PM Referred By: Jhon Beltran Confirmed By:Constantino Dubon
--- NOTE | 2019-10-29 21:13 | History and Physical Report ---
DATE OF ADMISSION: 11/04/2019 CHIEF COMPLAINT: Left knee pain and discomfort. HISTORY OF PRESENT ILLNESS: The patient is a 69-year-old female who presents for surgical treatment of her left knee. She has a fairly long history of left knee pain and discomfort that has gradually gotten worse over time. She describes most of the pain medial. The more she walks, the more it hurts. She cannot take NSAIDs or aspirin due to a gastric sleeve procedure of some sort. She had her right knee replaced by Dr. Patel 10 years ago and has done pretty well from this. She is limited by knee pain. The more she walks, the more it hurts. She limps more as the day goes on. She would like to have her left knee fixed. PAST MEDICAL HISTORY: 1. Sleep apnea with CPAP machine. 2. Mild depression. 3. Hypothyroidism. 4. Obesity with a BMI of 43. 5. Hearing difficulties. 6. Osteoarthritis. PAST SURGICAL HISTORY: Include, 1. Gastric sleeve surgery. 2. Wrist fracture. 3. Right knee replacement done in 2009. 4. Hysterectomy. 5. Tonsillectomy. 6. Stapedectomy. ALLERGIES: NICKEL AND COLD MEDICINE. CURRENT MEDICATIONS: Include, 1. Unspecified med. 2. Lexapro. 3. Vitamin D. 4. Multivitamin. SOCIAL HISTORY: A 69-year-old female. She drinks 2 drinks per week. Quit smoking in 2000. FAMILY HISTORY: Noncontributory. REVIEW OF HISTORY: Negative for diabetes, neurologic problems, vascular problems, bleeding disorders. No chest pain or shortness of breath. No history of DVT or PE. She does have moderate obesity. Cannot take NSAIDs or aspirin. PHYSICAL EXAMINATION: GENERAL: A pleasant, middle-aged female. Looks to be in reasonably good health. HEENT: Benign. NECK: Supple, no lymphadenopathy. LUNGS: Clear to auscultation. HEART: Has a regular rate and rhythm. ABDOMEN: Soft, nontender, nondistended. EXTREMITIES: Grossly neurovascularly intact except as follows: Examination of both knees reveals the patient walks with a little of a waddling gait. Examination of the left knee reveals slight varus alignment. Moderate to large soft tissue envelope. She is tender over the medial joint line. Small knee effusion. Range of motion is 5-120. No instability. Examination of the right knee reveals a well-healed incision. Anatomic alignment. A moderate soft tissue envelope. Range of motion 0-120. X-RAYS: X-rays of the left knee reviewed. The patient has advanced left knee DJD. She has got complete loss of medial joint space. She has got some mild diffuse osteopenia. Right knee replacement looks to be in acceptable position without signs of obvious problems. ASSESSMENT: A 69-year-old white female with multiple medical issues including moderate obesity, hypothyroidism, history of sleep apnea, and a history of gastric sleeve procedure with advanced left knee degenerative joint disease. She has failed conservative treatment and cannot take NSAIDs due to her stomach procedure. She would like to have her left knee fixed. PLAN: We will take her to the operating room and do a left knee replacement. The risks and benefits of this procedure were explained to the patient including but not limited to DVT, PE, , infection, neurological injury, vascular injury, bleeding problems, pain, limited range of motion, stiffness, failure to relieve her symptoms, incomplete relief of symptoms, need for further surgery in the future, fracture, leg length inequality, nerve palsy, etc. The patient understands and desires to proceed. Informed consent was obtained. The patient does report a nickel allergy. We will use a [employer] II Zirconium knee. Will use Xarelto for DVT prophylaxis due to her aspirin issue and intolerance. She will likely be discharged home using [facility] home health program. KRISSY
[~2019-11-04 08:28] MED LIST changes: +ACETAMINOPHEN 500 MG TAB PO SCH; -ATV5X PO; +BUPIVACAINE 0.5 % 5 MG/1 ML PF 10ML VIAL ONE; +BUPIVACAINE LIPOSOME/PF 266 MG, BUPIVACAINE/EPINEPHRINE 50 ML, SODIUM CHLORIDE 0.9% 30 ... INFIL SCH; +CEFAZOLIN 2000MG 2,000 MG/15 ML SYR IV SCH; -CEPH500C2 PO; -CHOL200010 PO; +EPINEPHrine INJ 1 MG/ML AMP ONE; +FAMOTIDINE 20 MG TAB PO SCH; +GABAPENTIN 300 MG CAP PO SCH; -LEVO100T7 PO; +LR 500ML BOLUS, THEN 15ML/HR IV SCH; +LR 60ML/HR IV SCH; -LXP10 PO; +METOCLOPRAMIDE HCL 10 MG TABLET PO SCH; -MULT-513 PO; +ROPIVACAINE 0.5% 5 MG/ML 30 ML VIAL ONE; +TRANEXAMIC ACID 1,000 MG **IV Intra-op IV SCH
--- NOTE | 2019-11-04 08:47 | History & Physical Bridge Note ---
Date of Service November 04, 2019 History & Physical Bridge Note I have examined the patient, reviewed the History & Physical and in the interval since the performance of the History & Physical I have noted the following changes of clinical significance: no changes noted
[2019-11-04] MEDS ORDERED: fentaNYL citrate 100 MCG/2 ML VIAL ONE (09:20)
[2019-11-04] MEDS ORDERED: MIDAZOLAM HCL 1 MG/ML 2ML VIAL ONE (09:20)
[2019-11-04] MEDS ORDERED: BUPIVACAINE/EPINEPHRINE 0.25% 1:200,000 30 ML VIAL ONE (11:07)
[2019-11-04] MEDS ORDERED: BACITRACIN INJ 50,000 UNIT VIAL ONE (11:07)
[2019-11-04] MEDS ORDERED: SODIUM CHLORIDE 0.9% PF 50 ML VIAL ONE (11:07)
[2019-11-04] MEDS ORDERED: BUPIVACAINE LIPOSOME 1.3% 266 MG/20 ML VIAL ONE (11:07)
[2019-11-04] MEDS ORDERED: ATROPINE SULFATE 0.1 MG/ML 10ML SYR IV PRN (11:27)
[2019-11-04] MEDS ORDERED: PROPOFOL IV EMULSION 10 MG/ML 20 ML VIAL IV ONE ×2 (11:41)
[2019-11-04] MEDS ORDERED: ePHEDrine sulfate 50 MG/ML AMP ONE (11:57)
--- NOTE | 2019-11-04 13:24 | Post Operative Brief Note ---
PG Immediate Post Op with CF Date of Surgery November 04, 2019 Pre & Post Diagnosis Operation Date: 11/04/19 10:40 Pre-Op Diagnosis: Left Knee Advanced Degenerative Joint Disease Post-Op Diagnosis: Left Knee Advanced Degenerative Joint Disease I identified the patient and participated in the time-out.: Yes Procedure Operation Date: 11/04/19 10:40 Actual Procedures p Left Total Knee Arthroplasty(Left) - Jhon Beltran MD Surgeon Jhon Beltran MD Truss Maker Kiara, PAC Estimated Blood Loss 100 Findings Consistent with Post-Op Diagnosis Fluids 1000 cc Specimens Specimen Description: A. Left Knee Bone and Tissue Drains [place] Catheter Anesthesia Type Spinal MAC Complications none Disposition Accompanied Patient To Recovery: No Disposition: Recovery Room
--- NOTE | 2019-11-04 13:46 | Operative Report ---
Post Operative Report Pre & Post Diagnosis Operation Date: 11/04/19 10:40 Pre-Op Diagnosis: Left Knee Advanced Degenerative Joint Disease Post-Op Diagnosis: Left Knee Advanced Degenerative Joint Disease I identified the patient and participated in the time-out.: Yes Procedure Operation Date: 11/04/19 10:40 Actual Procedures p Left Total Knee Arthroplasty(Left) - Jhon Beltran MD Surgeon Jhon Beltran MD Properties Supervisor Kiara, PAC Estimated Blood Loss 100 Findings Consistent with Post-Op Diagnosis Operative findings revealed advanced left knee DJD with extensive grade 4 [id number] disease and eburnation the medial femoral condyle medial tibial plateau. Moderate to large knee joint effusion. She had a fixed area varus deformity to her knee. She had osteophytes primarily in the medial compartment. Fluids 1000 cc Specimens Left knee sent for pathology. Drains None. Anesthesia Type Spinal MAC Complications none Disposition Accompanied Patient To Recovery: No Disposition: Recovery Room Indications Patient is a 69-year-old female is had a long history of knee problems. She underwent a right knee replacement about 10 years ago. Over the past several years she developed increased pain discomfort and deformity to her left knee. She failed all conservative measures. X-rays reveal advanced left knee DJD. She elected to proceed with total knee arthroplasty. The patient does have an apparent nickel allergy. Therefore used a [employer] zirconium journey to total knee arthroplasty. Description of Procedure Operative implants consist of: 1. [employer] journey 2 size 5 left posterior stabilized femoral component. 2. [employer] size 3 tibial tray. 3. 11 mm posterior box polyethylene insert. 4. 29 x 9 all poly-patella. Patient was taken to the operating room identified and placed on the operating table supine position but all contractors were properly padded. IV antibiotics tried by anesthesia team. A spinal anesthetic and abductor canal block had provided in the holding area. [place] catheter was placed in sterile fashion. A left thigh turn was then placed in the left lower extremities and prepped draped in usual sterile fashion. The left leg was elevated and exsanguinated with use of an Esmarch returns placed at 300 mmHg. An anterior approach the left knee was then performed to a longitudinal incision centered over the patella. Sharp dissection Through subcutaneous tissue down to the extensor mechanism. A medial parapatellar arthrotomy incision was made. Some subperiosteal dissection was carried out medially for the fat pad was dissected from deep patella tendon. Lateral patellofemoral ligament was released. Patella was subluxated laterally and the knee was flexed. The osteophytes were taken off the distal femur. The ACL and PCL were then released from distal femur and the tibia subluxated anteriorly. The external tibial alignment jig was then placed the anterior face the tibia and adjusted 8 mm medially. Proximal tibial cut was made to remove about 2 to 3 mm of bone from the medial side. Some osteophytes taken off medial and posterior medially. Tibia sized to a size 3. Attention drawn the femur. The distal femur exam with a sharp drop with intramedullary canal suction. A left 5 degrees valgus cutting guide was placed. Distal femoral cutting block was pinned in place. Distal femoral cut was made to take an additional 2 mm of bone off distal femur. The femur was then sized to a size 5. The AP cutting block was pinned parallel to the epicondylar condylar axis which was at 3 degrees of external rotation. The anterior cut, anterior cord, posterior cut, posterior chamfer, and anterior chamfer cuts were made. The knee was then flexed. The remnants of the medial lateral menisci were excised. The osteophytes were taken off the posterior aspect of the femur. The trial femoral component was placed. The box cutting good divide was placed in the box cut was made. The trochlear component was placed. The tibial tray was then pinned in maximum external rotation and the drill and standpoints were used create defect in the proximal tibia for the tibial tray. The knee was then trialed and 11 mm insert fit most appropriately. Tension drawn the patella. Patella was cleaned of all soft tissues. Patella thickness measured 23 mm in thickness was cut down to 14. Was sized to a size 29 patella. The locals drilled for the 29 patella. The lateral osteophyte was removed. Patella button was placed. New strictly range of motion patella tracked nicely with no thumbs test. Attention drawn to placing the permanent components. All trial components were removed. A bone plug was placed in the distal femur limit blood loss. Double batch of [place] G cement was mixed. A [employer] size 5 left posterior Bise femoral component, size 3 tibial tray, 11 mm posterior box polyethylene insert, 29 x 9 all poly-patella were then cemented in place. Knee was brought out into full extension total cement hardened. Final cement check was then performed. The pericapsular tissues were injected with a total of 100 cc of combination points Exparel, 30 cc normal saline, 50 cc of half percent Marcaine with epinephrine. Patient did receive 1 g tranexamic acid. The tract was then let down for final turn time of set 69 minutes. Hemostasis assured use electrocautery. The extensor mechanism then closed with combination 1 PDS suture #1 Vicryl suture in a [id number] fashion to the extensor mechanism checked found to be intact with subcutaneous tissues then closed with 2 Dexon suture in a buried interrupted fashion skin was closed skin buddy. Leg was then cleaned dried a sterile dressing composed Xeroform, 4 fourths, sterile cast padding, Hitesh bandage were applied. Patient then transferred to the recovery room in stable condition. Patient tolerated procedure well and there were no complications. Marcelino Craig, my physician production administrative assistant, was present for the entire procedure. His assistance was required and essential to proper patient positioning, prepping and draping, surgical exposure, placement of the implants, performing the technical aspects of the operation, closure of the wound, and placement of the sterile bandage. I attest to the content of the Intraoperative Record and any orders documented therein. Any exceptions are noted below.
--- NOTE | 2019-11-04 13:55 | XRay Report ---
XR knee LT 1 or 2V routine HISTORY: 69 years-old Female Surgical Post Op left knee total joint arthroplasty COMPARISON: Knee radiographs 07/08/2019 TECHNIQUE: 2 views of the left knee FINDINGS: Left knee total joint arthroplasty and patella resurfacing. No acute fracture or retained foreign bod y. Anterior midline skin buddy are noted along with expected postsurgical soft tissue swelling and deep tissue air with surgical drainage catheter. IMPRESSION: Left knee total joint arthroplasty with patellar resurfacing with expected postoperative changes. ACT 112: Negative or not required by law. The above report was generated using voice recognition software. It may contain grammatical, syntax o r spelling errors. Electronically signed by: Boaz Saul M.D. 11/04/2019 1:53 PM
--- NOTE | 2019-11-04 13:58 | Anesthesiology Progress Note ---
Date of Service November 04, 2019 Anesthesia Post Procedure Vital Signs Vital Signs: Temp Pulse Pulse Resp BP Pulse Ox 11/04/19 13:50 36.5 C 63 15 119/63 97 11/04/19 13:40 60 19 107/60 100 11/04/19 13:31 36.9 C 61 12 112/55 L 100 11/04/19 09:28 37.0 C 68 18 151/87 H 96 Transfer of Care Handoff Completed per policy Notes Mental Status: alert / awake / arousable Patient Amnestic to Procedure: Yes Nausea / Vomiting: adequately controlled Pain: adequately controlled Airway Patency, RR, SpO2: stable & adequate BP & HR: stable & adequate Hydration State: stable & adequate Neuraxial Anesthesia: was administered and sensory block is resolving Anesthetic Complications: no major complications apparent
[2019-11-04] MEDS ORDERED: [UNRECOGNIZED DRUG - SUPPLY] SCH (14:13)
[2019-11-04] MEDS ORDERED: HYDROmorphone INJ 0.5 MG/0.5 ML SYR IV PRN (14:30)
[2019-11-04] MEDS ORDERED: ONDANSETRON INJ 2 MG/ML 2 ML VIAL IV PRN (14:30)
[2019-11-04] MEDS ORDERED: bisacodyL 10 MG SUPP PR PRN (14:30)
[2019-11-04] MEDS ORDERED: NALOXONE HCL 0.4 MG/1 ML VIAL/CARP IV PRN (14:30)
[2019-11-04] MEDS ORDERED: MAGNESIUM HYDROXIDE SUSP 30 ML UDC PO PRN (14:30)
[2019-11-04] MEDS ORDERED: ALUMINUM/MAGNESIUM SUSP 30 ML UDC PO PRN (14:30)
[2019-11-04] MEDS ORDERED: METOCLOPRAMIDE HCL INJ 5 MG/ML 2 ML VIAL IV PRN (14:30)
[2019-11-04] MEDS: SODIUM CHLORIDE 0.9% 1000ML 1,000 ML IV SCH (15:01)
[2019-11-04] MEDS: ACETAMINOPHEN 500 MG TAB PO SCH ×2 (15:03→20:50)
[2019-11-04] MEDS: KETOROLAC TROMETHAMINE 15 MG/ML VIAL IV SCH ×2 (15:04→20:02)
[2019-11-04] MEDS: OXYCODONE HCL IR 5 MG TAB (IMMEDIATE RELEASE) PO PRN (16:22)
[2019-11-04] MEDS: Scopolamine CHECK PATCH PLACEMENT SCH (16:23)
[2019-11-04] MEDS: ASCORBIC ACID 500 MG TAB PO SCH (17:18)
[2019-11-04] MEDS: FERROUS GLUCONATE 324 MG TAB PO SCH (17:18)
[2019-11-04] MEDS ORDERED: TRANEXAMIC ACID / 0.7% NACL 1,000 MG/100 ML BAG IV SCH (19:30)
[2019-11-04] MEDS: CEFAZOLIN 2000MG 2,000 MG/15 ML SYR IV SCH (19:59)
[2019-11-04] MEDS: DOCUSATE SODIUM 100 MG CAP PO SCH (20:03)
[2019-11-04] MEDS: TAPENTADOL HCL ER 50 MG TABCR PO SCH (20:12)
[2019-11-04] MEDS ORDERED: CIPRO 0.3%/DEXAMETHASONE 0.1% OTIC SUSP 7.5ML OT PRN (21:00)
[2019-11-04] MEDS ORDERED: SENNA 8.6 MG TAB PO SCH (21:00)
[2019-11-05] MEDS: Scopolamine CHECK PATCH PLACEMENT SCH ×2 (00:15→09:08)
[2019-11-05] MEDS: SODIUM CHLORIDE 0.9% 1000ML 1,000 ML IV SCH (00:16)
[2019-11-05] MEDS: OXYCODONE HCL IR 5 MG TAB (IMMEDIATE RELEASE) PO PRN ×2 (02:53→09:07)
[2019-11-05] MEDS: KETOROLAC TROMETHAMINE 15 MG/ML VIAL IV SCH ×2 (02:54→09:10)
[2019-11-05] MEDS: CEFAZOLIN 2000MG 2,000 MG/15 ML SYR IV SCH (04:18)
[2019-11-05] MEDS: ACETAMINOPHEN 500 MG TAB PO SCH ×2 (05:29→14:10)
[2019-11-05] MEDS ORDERED: LEVOTHYROXINE SODIUM 100 MCG TABLET PO SCH (06:30)
[2019-11-05 07:09] LABS: Hematocrit (blood only) 35.7 % (37-47); Hemoglobin 11.4 g/dL (12.0-16.0); Mean Corpuscular Hemoglobin 28.6 pg (25-34); Mean Corpuscular Hgb Conc 31.9 g/dL (32-36); Mean Corpuscular Volume 89.7 fL (80-100); Mean Platelet Volume 11.5 fL (7.4-10.4); Platelet Count 214 K/uL (130-400); RDW Coefficient of Variation 13.7 % (11.5-14.5); RDW Standard Deviation 45.8 fL (36.4-46.3); Red Blood Count 3.98 M/uL (4.2-5.4); White Blood Count 9.29 K/uL (4.8-10.8)
[2019-11-05 07:42] LABS: BUN Creatinine Ratio 19.4 (10-20); Creatinine Clr Calc Pharmacy 72.5 ml/min; Est GFR (African American) 72.7; Est GFR (Non-African American) 62.7; Potassium 4.6 mmol/L (3.5-5.1)
--- NOTE | 2019-11-05 08:49 | Progress Notes ---
DATE: 11/05/2019 SUBJECTIVE: A 69-year-old white female postop day 1 from a left knee replacement. She is doing pretty well. Had a pretty good night. Pain is controlled. No chest pain or shortness of breath. Not feeling dizzy or lightheaded. OBJECTIVE: VITAL SIGNS: Temperature is 36.5. Vital signs stable. GENERAL: Shows a pleasant, middle-aged female. She is sitting up in bed, looks quite comfortable. LUNGS: Clear to auscultation. HEART: Regular rate and rhythm. ABDOMEN: Soft, nontender, nondistended. EXTREMITIES: Grossly neurovascularly intact except as follows. Examination of the left leg reveals the dressing to be in place. She does have a little bit of bloody drainage anteriorly. Knee alignment looks good. She can dorsiflex and plantarflex her foot appropriately. LABORATORY DATA: Hemoglobin 11.4. Hematocrit 35.7. Electrolytes are stable. ASSESSMENT: A 69-year-old white female postop day 2 from left knee replacement, doing reasonably well. Pain is controlled. She is neurologically intact. PLAN: 1. DVT prophylaxis including thigh-high TEDs, SCDs, and Xarelto for 30 days. 2. PT/OT. Weight bear as tolerated. Left total knee protocol. 3. Pain control, doing okay with current pain regimen. 4. Disposition: Plan to discharge to home with some home health. She is planning on going to a friend's house. We will see how therapy goes today and her pain control.
[2019-11-05] MEDS ORDERED: PHYTONADIONE PO SCH (09:00)
[2019-11-05] MEDS ORDERED: MULTIVITAMIN TAB PO SCH (09:00)
[2019-11-05] MEDS ORDERED: FOLIC ACID PO SCH (09:00)
[2019-11-05] MEDS ORDERED: CHOLECALCIFEROL 1,000 UNITS 25 MCG TAB PO SCH (09:00)
[2019-11-05] MEDS ORDERED: MULTIVITAMIN PO SCH (09:00)
[2019-11-05] MEDS ORDERED: ESCITALOPRAM OXALATE 10 MG TAB PO SCH (09:00)
[2019-11-05] MEDS ORDERED: MIRABEGRON ER 25 MG TAB PO SCH (09:00)
[2019-11-05] MEDS: DOCUSATE SODIUM 100 MG CAP PO SCH (09:09)
[2019-11-05] MEDS: FERROUS GLUCONATE 324 MG TAB PO SCH (09:09)
[2019-11-05] MEDS: ASCORBIC ACID 500 MG TAB PO SCH (09:09)
[2019-11-05] MEDS: TAPENTADOL HCL ER 50 MG TABCR PO SCH (09:13)
[2019-11-05] MEDS ORDERED: RIVAROXABAN 10 MG TABLET PO SCH (14:00)
--- NOTE | 2019-11-12 21:06 | Discharge Summary ---
Date of Service November 12, 2019 Admission HPI Per Admitting Provider Documented in the H & P Admission Exam (Per Admitting) Constitutional Documented in the H & P Discharge Data Consultations 11/04/19 14:13 Consult Case Management - Discharge Planning Routine Procedures Performed Operation Date: 11/04/19 10:40 Actual Procedures p Left Total Knee Arthroplasty(Left) - Jhon Beltran MD Hospital Course (1) Status post total left knee replacement: This patient is a 69 year old female admitted on 11/04/19 and underwent total knee arthroplasty. She tolerated the procedure well and there were no complications. Transferred to the PACU post op and later to the orthopedic floor for further care. She was given ancef for antibiotic prophylaxis. She was also given MONALISA stockings, SCDs, and xarelto for DVT prophylaxis. Hemoglobin, hematocrit, and vital signs were monitored during her hospital stay and remained stable. Did not require any blood transfusions. There were no complications during her hospital stay. By post op day #1 the patient was tolerating a regular diet, pain was reasonably controlled with oral pain medicine, and she was participating in physical therapy. On post op day #1 the patient was discharged home and set up with home health care. She was given printed discharge instructions including prescriptions for extra strength tylenol, xarelto, and oxycodone. Continue physical therapy, weight bearing as tolerated. Continue MONALISA stockings. Follow up approximately 2 weeks post op or sooner if there are problems or concerns. Coding Level of Care Code None Diagnoses Status post total left knee replacement Z96.652
== END 2019-11-05 15:13 | disposition home health service (06) ==
LOC: ASU 08:28 → 3E 08:28

== ENCOUNTER 2024-11-22 09:35 | Inpatient (IN) ==
--- NOTE | 2024-11-22 09:53 | Emergency Department Note ---
Impression & Plan Shortness of breath, Pleural effusion ED Provider Note CHIEF COMPLAINT: Shortness of breath HISTORY OF PRESENTING ILLNESS: The patient is a pleasant 74-year-old female who arrives to the emergency department with her for evaluation of shortness of breath. The patient had a splenectomy, and pancreatic cyst with pancreatic tail removal performed on 11/08 at [facility]. The patient states she was discharged from the facility, feeling well. She reports on 11/11, she thought she was having a heart attack, and came to the emergency department. Patient reports workup was negative for cardiac origin, however she had trace pleural effusion, as well as a fluid collection at the surgical site. She was transferred back to [place], where they removed the drain that was in place, as it appeared to no longer be working. Patient was treated with IV and oral antibiotics, and discharged home. She reported significant shortness of breath today, and pain in the left lower back. She is concerned for infection. She states her symptoms are significantly worsened from her previous visit. Her vital signs are currently stable, she is afebrile. REVIEW OF SYSTEMS: See HPI for pertinent positives and pertinent negatives. ALLERGIES: See below MEDICATIONS: See below PAST MEDICAL HISTORY: See below PHYSICAL EXAM: VITALS: Vitals are noted on the nurse's note and reviewed by myself. Vital signs stable. GENERAL: 74-year-old female, in mild distress, nondiaphoretic, well-developed well-nourished. SKIN: Left lateral abdomen, healing area from previous drain. HEAD: Normocephalic atraumatic. HEART: Regular rate and rhythm without murmurs gallops or rubs. LUNGS: Diminished lung sounds left lobe, CTA right. ABDOMEN: Positive bowel sounds x 4. Soft, nontender, without masses or organomegaly. Montero sign negative. No guarding or rebound tenderness. MUSCULOSKELETAL: No muscle atrophy, erythema, or edema noted. Normal gait. Strength 5/5 throughout. NEURO: Patient was alert and oriented to person place and time. No focal neurological deficits. DIFFERENTIAL DIAGNOSIS: Reactive airway disease, pneumonia, pneumothorax, COPD, CHF, infections, cardiac ischemia, pulmonary embolism, pleural effusion musculoskeletal, gastrointestinal, as well as other pathologies. ED COURSE AND MEDICAL DECISION MAKING: HISTORY FROM INDEPENDENT HISTORIAN: at bedside serving as secondary historian. MONITOR: Continuous playground monitor: Order was placed for continuous playground monitor. Patient was placed on the playground monitor and continuous pulse ox. Patient was noted to be in normal sinus rhythm at an initial rate of 80 bpm per my interpretation. EKG: EKG was interpreted by myself as normal sinus rhythm at a rate of 74 bpm, no ST elevation, or depression noted. Previous for comparison shows resolution of nonspecific T wave abnormality in lateral leads, November 17, 2024. INTERPRETATION OF LABS: I interpreted the labs with full lab results as below in the lab section of this note. Pertinent lab results discussed in the MDM section below. INTERPRETATION OF IMAGING: Imaging studies were interpreted by myself and read by radiology as per the imaging section of this note. CHRONIC MEDICAL/SOCIAL CONDITIONS AFFECTING CARE: Recent surgical procedure, intra-abdominal fluid collection, recent pleural effusion CONSULTATIONS: Pulmonology, Dr. Hyde [facility] SUMMARY: The patient is a pleasant, 74-year-old female who arrives to the emergency department for evaluation of the above-stated complaint. Saline lock was established, lab work was obtained. CBC shows leukocytosis 18.79, likely trending down from previous of 33.45 on 11/17. Thrombocytosis 828. CMP unremarkable. Magnesium 2.0. Alkaline phosphatase 364, troponin 7.0. Procalcitonin 0.15. Chest x-ray imaging ordered, however never performed by radiology. Chest CTA, as well as CT imaging of the abdomen and pelvis with IV contrast was obtained which shows a increased size of the pleural effusion, small on the right, large on the left. Progressive left greater than right bibasilar consolidation likely atelectasis. Superimposed left lower lobe pneumonia, difficult to exclude considered less likely. There is also increased size of the left upper quadrant fluid collection, however not significant. I spoke with the patient regarding the findings. She requested to stay at this facility as opposed to being transferred to [facility]. Pulmonology was consulted, who agreed to evaluate the patient at bedside and chose to drain the pleural effusion. The patient tolerated the procedure well, however she did develop some central chest pain. EKG was performed, to exclude cardiac origin, which was nonischemic. The patient will be admitted to the hospitalist services for further workup. The patient was admitted to Dr. Olivaers, of the [facility] hospitalist group. Please refer to his documentation, as well as pulmonology's documentation for further patient workup and care. DIAGNOSIS: Pleural effusion, shortness of breath The patient's case was discussed with Dr. Nguyen, who agreed with my evaluation and treatment plan. The chart was completed utilizing [employer] Speech voice recognition software. Grammatical errors, random word insertions, pronoun errors, and incomplete sentences are an occasional consequence of this system due to software limitations, ambient noise, and hardware issues. Any formal questions or concerns about the content, text, or information contained within the body of this dictation should be directly addressed to the provider for clarification. Past Med/Surg History Problem List (Updated 11/25/24 @ 13:46 by MAXIM Omalley) Pleural effusion (Acute) Shortness of breath (Acute) Shortness of breath Intra-abdominal fluid collection Tachycardia (Acute) Hypotension (Acute) Leukocytosis (Acute) Pleural effusion (Acute) Intra-abdominal abscess (Acute) Pleuritic chest pain (Acute) Abnormal finding on EKG Hyperparathyroidism Pancreatic lesion Coronary artery calcification Lipoma Obesity Asymptomatic postsurgical menopause Dietary counseling and surveillance History of kidney stones Hx of gastric bypass Prediabetes Intraabdominal hemorrhage s/p gastric sleeve/"resolved" Mood disorder (Chronic) Hypothyroidism (Chronic) Obstructive sleep apnea of adult (Chronic) Urinary incontinence Status post total left knee replacement Status post right knee replacement Hyperglycemia (Chronic) Chronic venous insufficiency History of colon polyps Posterior tibialis tendon insufficiency Weight gain Urge incontinence of urine Medical History Urinary urgency Encounter for pre-operative examination Hypothyroidism Anxiety Sleep apnea CPAP Surgical History History of tonsillectomy and adenoidectomy History of colonoscopy History of lithotripsy History of total knee replacement RIGHT/LEFT History of open reduction and internal fixation (ORIF) procedure R WRIST History of hysterectomy PARTIAL ABDOMINAL HYSTERECTOMY History of gastric bypass GASTRIC SLEEVE History of ear surgery RT STAPEDECTOMY Family History Father Diabetes Family history of diabetes mellitus Hypothyroidism Mother Family history of diabetes mellitus Dementia Hypothyroidism Hypertension Macular degeneration Brother Down syndrome Lung cancer Sister Lung cancer Grandfather Diabetes Grandmother (Maternal) Stroke Other No family history of adverse response to anesthesia Denies family history of Colon cancer Ovarian cancer Prostate cancer Myocardial infarction Breast cancer Social History Smoking Status: Former smoker Tobacco Type: Cigarettes Age Started Using Tobacco: 19; Age Quit Using Tobacco: 50; packs per day: 0.5; Cigarettes Per Day: 10; Second Hand Exposure: No; Do You Dip or Chew Tobacco: No; Hx Alcohol Use: Yes Alcohol type: wine Alcohol Intake Frequency: Monthly or Less Hx Substance Use: No Preferred Language: Luxembourgish Communication Ability: Effective Communication Ability Comment: BILAT AIDES Visual Impairment: No Limitations Hearing Ability: Use of Hearing Aid Dry Wall Applicator Required: No Beliefs That Will Affect Care: None marital status: Single Current Living Situation: Significant Other current occupational status: retired Feels Safe at Home: Yes Childhood Exposure to Second-Hand Smoke: Yes Diet: regular Dental Care, Regularly: Yes Physical Activity Frequency: Daily Physical Activity Frequency Comment: bike, yoga, walk Seatbelt Use: always Sunscreen Use: No Assistive Devices: Cane, CPAP, Hearing Aid - Bilateral and Walker Allergies Allergies Allergy/AdvReac Type Severity Reaction Status Date / Time 2-octyl cyanoacrylate Allergy Severe Allergy to Unverified 11/22/24 12:45 [From SurgiSeal Stylus] Surgical Glue - itching/redness/sores ephedrine Allergy Mild RACING Verified 11/22/24 12:45 HEART RATE nickel Allergy Mild LOCAL Verified 11/22/24 12:45 CONTRACT DERMITIS aspirin AdvReac Unknown told not Verified 11/22/24 12:45 take d/t gastric surgery ibuprofen AdvReac Unknown told to Verified 11/22/24 12:45 not take d/t gasric surgery levofloxacin AdvReac Verified 11/22/24 12:45 Home Meds Home Medications Medication Instructions Recorded Confirmed cholecalciferol (vitamin D3) 50 2,000 unit PO QAM 11/04/17 11/22/24 mcg (2,000 unit) capsule (Vitamin D3) umubswvlufva-goqncvwn-hwefr acid 1 tab PO QAM 11/04/17 11/22/24 400 mcg-vitamin K 80 mcg capsule (Multi For Her 50 Plus) enoxaparin 40 mg/0.4 mL 40 mg subcut QAM 11/17/24 11/22/24 subcutaneous syringe metformin 500 mg tablet 1,000 mg PO QAM 11/17/24 11/22/24 omeprazole 40 mg capsule,delayed 40 mg PO DAILYBB 11/17/24 11/22/24 release oxycodone 5 mg tablet 5 mg PO TID PRN Pain 11/17/24 11/22/24 rosuvastatin 10 mg tablet 10 mg PO DAILY 11/17/24 11/22/24 semaglutide (weight loss) 1.7 0 mg subcut Q7D 11/17/24 11/22/24 mg/0.75 mL subcutaneous pen injector (Marti) acetaminophen 500 mg tablet 500 mg PO Q6H PRN Pain 11/22/24 11/22/24 amoxicillin 875 mg-potassium 1 tab PO BID 11/22/24 11/22/24 clavulanate 125 mg tablet Previous Rx's Medication Instructions Recorded CPAP Supplies #1 ea 05/17/19 cyanocobalamin (vitamin B-12) 1,000 mcg PO DAILY #30 caps 12/31/21 1,000 mcg capsule CPAP Machine #1 ea 01/09/23 solifenacin 5 mg tablet (Vesicare) 5 mg PO DAILY #90 tabs 01/04/24 vibegron 75 mg tablet (Gemtesa) 75 mg PO DAILY #90 tabs 04/04/24 lorazepam 0.5 mg tablet 0.5 mg PO DAILY PRN anxiety #20 04/22/24 tabs escitalopram oxalate 10 mg tablet 10 mg PO QAM #90 tabs 05/11/24 (Lexapro) levothyroxine 112 mcg tablet 112 mcg PO DAILY #90 tabs 07/20/24 Results & Data (ED) Vital Signs Vital Signs - 24 hr 11/22/24 11:04 11/22/24 11:04 11/22/24 11:04 Pulse Rate Pulse Rate from SpO2 Sensor Respiratory Rate Blood Pressure 120/78 120/78 120/78 Blood Pressure Mean 85 85 85 Pulse Oximetry 11/22/24 11:06 11/22/24 12:00 11/22/24 12:33 Pulse Rate 71 73 74 Pulse Rate from SpO2 Sensor 72 73 74 Respiratory Rate 21 18 20 Blood Pressure 120/78 122/94 Blood Pressure Mean 92 103 Pulse Oximetry 95 96 95 Home Medications Current Medication List: was personally reviewed by me Laboratory Data Attestation: I reviewed the patient's lab results. 11/25/24 06:37 11/25/24 06:37 Lab Results 11/22/24 11/22/24 11/22/24 Range/Units 10:17 10:17 10:17 WBC 18.79 H (4.8-10.8) K/ul RBC 3.42 L (4.20-5.40) M/uL Hgb 9.7 L (12.0-16.0) g/dl Hct 30.2 L (37.0-47.0) % MCV 88.3 (80.0-100.0) fL MCH 28.4 (25.0-34.0) pg MCHC 32.1 (32.0-36.0) g/dL RDW Std Deviation 46.5 H (36.4-46.3) fL RDW Coeff of Cheri 14.5 (11.5-14.5) % Plt Count 828 H (130-400) K/uL MPV 11.6 (9.4-12.4) fL Immature Gran % (Auto) 3.1 % Neut % (Auto) 76.1 % Lymph % (Auto) 8.8 % [place] % (Auto) 9.6 % Eos % (Auto) 2.0 % Baso % (Auto) 0.4 % Neut # (Auto) 14.30 H (1.40-6.50) K/uL Lymph # (Auto) 1.65 (1.20-3.40) K/uL [place] # (Auto) 1.81 H (0.11-0.59) K/uL Eos # (Auto) 0.37 (0.00-0.50) K/uL Baso # (Auto) 0.08 (0.00-0.20) K/uL Immature Gran # (Auto) 0.58 H (0.01-0.20) K/uL Absolute Nucleated RBC 0.03 (0.00-0.12) K/uL Nucleated RBC % (auto) 0.2 % Sodium 139 (136-145) mmol/L Potassium 3.7 (3.5-5.1) mmol/L Chloride 106 (98-107) mmol/L Carbon Dioxide 26 (21-32) mmol/L Anion Gap 7 (3-11) BUN 8 (6-23) mg/dl Creatinine 0.63 (0.6-1.2) mg/dl Est Cr Clr Drug Dosing 90.7 ml/min eGFR 93.03 BUN/Creatinine Ratio 12.7 (10-20) Glucose 105 H (70-99(Fasting)) mg/dl Lactate 0.9 (0.4-2.0) mmol/L Calcium 9.7 (8.6-10.3) mg/dl Magnesium 2.0 (1.7-2.4) mg/dl Total Bilirubin 0.5 0.5 (0.2-1.0) mg/dl Direct Bilirubin 0.2 (0-0.2) mg/dl AST 19 (13-39) U/L ALT 22 (7-52) U/L Alkaline Phosphatase 364 H (34-104) U/L Lactate Dehydrogenase 315 H (86-244) U/L Troponin I High Sens 7.0 (0-14) pg/ml Total Protein 5.9 L 5.9 L (6.0-8.3) gm/dl Albumin 2.8 L (3.4-5.0) gm/dl Procalcitonin (0-0.5) ng/ml 11/22/24 Range/Units 10:17 WBC (4.8-10.8) K/ul RBC (4.20-5.40) M/uL Hgb (12.0-16.0) g/dl Hct (37.0-47.0) % MCV (80.0-100.0) fL MCH (25.0-34.0) pg MCHC (32.0-36.0) g/dL RDW Std Deviation (36.4-46.3) fL RDW Coeff of Cheri (11.5-14.5) % Plt Count (130-400) K/uL MPV (9.4-12.4) fL Immature Gran % (Auto) % Neut % (Auto) % Lymph % (Auto) % [place] % (Auto) % Eos % (Auto) % Baso % (Auto) % Neut # (Auto) (1.40-6.50) K/uL Lymph # (Auto) (1.20-3.40) K/uL [place] # (Auto) (0.11-0.59) K/uL Eos # (Auto) (0.00-0.50) K/uL Baso # (Auto) (0.00-0.20) K/uL Immature Gran # (Auto) (0.01-0.20) K/uL Absolute Nucleated RBC (0.00-0.12) K/uL Nucleated RBC % (auto) % Sodium (136-145) mmol/L Potassium (3.5-5.1) mmol/L Chloride (98-107) mmol/L Carbon Dioxide (21-32) mmol/L Anion Gap (3-11) BUN (6-23) mg/dl Creatinine (0.6-1.2) mg/dl Est Cr Clr Drug Dosing ml/min eGFR BUN/Creatinine Ratio (10-20) Glucose (70-99(Fasting)) mg/dl Lactate (0.4-2.0) mmol/L Calcium (8.6-10.3) mg/dl Magnesium (1.7-2.4) mg/dl Total Bilirubin (0.2-1.0) mg/dl Direct Bilirubin (0-0.2) mg/dl AST (13-39) U/L ALT (7-52) U/L Alkaline Phosphatase (34-104) U/L Lactate Dehydrogenase (86-244) U/L Troponin I High Sens (0-14) pg/ml Total Protein (6.0-8.3) gm/dl Albumin 2.8 L (3.4-5.0) gm/dl Procalcitonin 0.15 (0-0.5) ng/ml Administered Medications Acetaminophen (Acetaminophen 325 Mg Tab) 650 mg PO Q4H PRN PRN Reason: pain/fever Stop: 12/22/24 15:36 Last Admin: 11/24/24 07:11 Dose: 650 mg Documented By: Admin: 11/23/24 19:36 Dose: 650 mg Documented By: Admin: 11/23/24 14:33 Dose: 650 mg Documented By: Admin: 11/23/24 07:41 Dose: 650 mg Documented By: Admin: 11/23/24 03:08 Dose: 650 mg Documented By: Admin: 11/22/24 23:04 Dose: 650 mg Documented By: MAKIA Calcium Carbonate (Calcium Carbonate 500 Mg Chewable Tab) 500 mg PO TID PRN PRN Reason: Indigestion Stop: 12/22/24 19:54 Last Admin: 11/22/24 20:07 Dose: 500 mg Documented By: NGA Vancomycin HCl 1,500 mg/ (Sodium Chloride) 530 mls @ 200 mls/hr IV Q24H RACHEL Stop: 11/27/24 05:59 Last Infusion: 11/25/24 09:00 Dose: Infused Documented By: Admin: 11/25/24 05:59 Dose: 200 mls/hr Documented By: izaiah Piperacillin Sod/Tazobactam Sod (Zosyn) 4.5 gm in 100 mls @ 25 mls/hr IV Q8H RACHEL; Protocol Stop: 11/27/24 10:29 Last Admin: 11/25/24 10:52 Dose: 25 mls/hr Documented By: RT Levothyroxine Sodium (Levothyroxine Sodium 112 Mcg Tablet) 112 mcg PO DAILY RACHEL Stop: 12/23/24 06:29 Last Admin: 11/25/24 07:32 Dose: 112 mcg Documented By: Admin: 11/24/24 07:12 Dose: 112 mcg Documented By: Admin: 11/23/24 07:42 Dose: 112 mcg Documented By: BRADY Oxybutynin Chloride (Oxybutynin Chloride Xl 5 Mg Tabcr) 5 mg PO DAILY RACHEL Stop: 12/23/24 08:59 Last Admin: 11/25/24 07:32 Dose: 5 mg Documented By: Admin: 11/24/24 07:53 Dose: 5 mg Documented By: Admin: 11/23/24 07:42 Dose: 5 mg Documented By: BRADY Oxycodone HCl (Oxycodone Hcl Ir 5 Mg Tab (Immediate Release)) 5 mg PO TID PRN PRN Reason: Pain Stop: 12/06/24 15:36 Last Admin: 11/22/24 20:07 Dose: 5 mg Documented By: NGA Pantoprazole Sodium (Pantoprazole 40 Mg Tab) 40 mg PO DAILYBB [facility] Stop: 12/23/24 06:29 Last Admin: 11/25/24 05:59 Dose: 40 mg Documented By: izaiah Admin: 11/24/24 05:43 Dose: 40 mg Documented By: Admin: 11/23/24 05:01 Dose: 40 mg Documented By: NGA Rosuvastatin Calcium (Rosuvastatin Calcium 10 Mg Tab) 10 mg PO DAILY RACHEL Stop: 12/23/24 08:59 Last Admin: 11/25/24 07:32 Dose: 10 mg Documented By: Admin: 11/24/24 07:54 Dose: 10 mg Documented By: Admin: 11/23/24 07:42 Dose: 10 mg Documented By: LUIS E Vibegron (Vibegron 75 Mg Tab) 75 mg PO DAILY RACHEL Stop: 12/23/24 08:59 Last Admin: 11/25/24 07:32 Dose: 75 mg Documented By: Admin: 11/24/24 07:53 Dose: 75 mg Documented By: Admin: 11/23/24 07:42 Dose: 75 mg Documented By: LUIS E Discontinued Medications Docusate Sodium (Docusate Sodium 100 Mg Cap) 100 mg PO NOW ONE Stop: 11/23/24 19:28 Last Admin: 11/23/24 19:37 Dose: 100 mg Documented By: TRENTON Fentanyl Citrate (Fentanyl Citrate Pf 100 Mcg/2 Ml Vial) Confirm Administered Dose 100 mcg .ROUTE .STK-MED ONE Stop: 11/25/24 11:05 Last Admin: 11/25/24 12:42 Dose: Not Given Documented By: Acetaminophen (Ofirmev) 1,000 mg in 100 mls @ 400 mls/hr IV NOW STA Stop: 11/22/24 14:20 Last Infusion: 11/22/24 14:39 Dose: Infused Documented By: Admin: 11/22/24 14:10 Dose: 400 mls/hr Documented By: AYSE Piperacillin Sod/Tazobactam Sod (Zosyn) 4.5 gm in 100 mls @ 25 mls/hr IV Q8H [facility]; Protocol Stop: 11/24/24 21:44 Last Infusion: 11/24/24 21:55 Dose: Infused Documented By: Admin: 11/24/24 14:01 Dose: 25 mls/hr Documented By: Infusion: 11/24/24 09:45 Dose: Infused Documented By: Admin: 11/24/24 05:43 Dose: 25 mls/hr Documented By: Infusion: 11/24/24 01:47 Dose: Infused Documented By: Admin: 11/23/24 21:30 Dose: 25 mls/hr Documented By: Infusion: 11/23/24 16:43 Dose: Infused Documented By: [facility] Admin: 11/23/24 13:30 Dose: 25 mls/hr Documented By: Infusion: 11/23/24 09:11 Dose: Infused Documented By: [facility] Admin: 11/23/24 05:01 Dose: 25 mls/hr Documented By: Infusion: 11/23/24 00:17 Dose: Infused Documented By: Admin: 11/22/24 20:12 Dose: 25 mls/hr Documented By: NGA Piperacillin Sod/Tazobactam Sod (Zosyn) 4.5 gm in 100 mls @ 200 mls/hr IV ONE ONE; Protocol Stop: 11/22/24 16:14 Last Infusion: 11/22/24 17:27 Dose: Infused Documented By: [facility] Admin: 11/22/24 16:45 Dose: 200 mls/hr Documented By: BRADY Vancomycin HCl 2,000 mg/ (Sodium Chloride) 540 mls @ 200 mls/hr IV NOW ONE Stop: 11/24/24 10:32 Last Infusion: 11/24/24 13:06 Dose: Infused Documented By: Admin: 11/24/24 09:46 Dose: 200 mls/hr Documented By: Ioversol (Optiray 320 125ml) 112 ml IV ONCE ONE Stop: 11/22/24 11:28 Last Admin: 11/22/24 11:28 Dose: 112 ml Documented By: ALLAN Ioversol (Optiray 320 100ml) 93 ml IV ONCE ONE Stop: 11/24/24 13:20 Last Admin: 11/24/24 13:19 Dose: 93 ml Documented By: GUERRERO Ketorolac Tromethamine (Ketorolac 30 Mg/Ml Vial) 15 mg IV NOW ONE Stop: 11/22/24 14:33 Last Admin: 11/22/24 14:43 Dose: 15 mg Documented By: AYSE Morphine Sulfate (Morphine Sulfate 2 Mg/Ml Carp) 2 mg IV NOW STA Stop: 11/22/24 14:07 Last Admin: 11/22/24 14:10 Dose: 2 mg Documented By: AYSE Imaging Data Attestation: I personally reviewed and interpreted this imaging study as follows: Discharge Plan Visit Data Chief Complaint: Shortness of Breath/Dyspnea Stated Complaint: PROBLEMS BREATHING, REF BY DOC ED Provider: Nguyen,Niketu J. ED Midlevel Provider: Deborah De Jesus Discharge Problem: Shortness of breath, Pleural effusion Patient Disposition: Admitted As Inpatient Condition: Fair Discharge Instructions Interventions: ED Discharge Assessment Last Done: 11/22/24 15:18
[2024-11-22 10:40] LABS: Hematocrit (blood only) 30.2 % (37.0-47.0); Hemoglobin 9.7 g/dl (12.0-16.0); Immature Granulocytes # (auto) 0.58 K/uL (0.01-0.20); Immature Granulocytes % (auto) 3.1 %; Mean Corpuscular Hemoglobin 28.4 pg (25.0-34.0); Mean Corpuscular Volume 88.3 fL (80.0-100.0); Platelet Count 828 K/uL (130-400); RDW Standard Deviation 46.5 fL (36.4-46.3); Red Blood Count 3.42 M/uL (4.20-5.40); White Blood Count 18.79 K/ul (4.8-10.8)
[2024-11-22 10:59] LABS: Alanine Aminotransferase 22.0 U/L (7-52); Albumin Level 2.8 gm/dl (3.4-5.0); Alkaline Phosphatase 364.0 U/L (34-104); Anion Gap 7.0 (3-11); Bilirubin,Total 0.5 mg/dl (0.2-1.0); Blood Urea Nitrogen 8.0 mg/dl (6-23); Calcium 9.7 mg/dl (8.6-10.3); Carbon Dioxide 26.0 mmol/L (21-32); Chloride 106.0 mmol/L (98-107); Creatinine Clr Calc Pharmacy 90.7 ml/min; Glucose 105.0 mg/dl (70-99(Fasting)); Magnesium 2.0 mg/dl (1.7-2.4); Potassium 3.7 mmol/L (3.5-5.1); Sodium 139.0 mmol/L (136-145); Total Protein 5.9 gm/dl (6.0-8.3)
[2024-11-22] MEDS: OPTIRAY 320 125ml IV ONE (11:28)
--- NOTE | 2024-11-22 11:55 | CT Scan Report ---
CT angio chest PE protocol CT DOSE: 2306.91 mGy.cm HISTORY: 74 years-old Female with PE. No acute shortness of breath with upper abdominal pain TECHNIQUE: Multiple CTA images of the chest were obtained after the intravenous administration of 112 ml Optiray. Coronal and sagittal MIPS were obtained from the axial data set and were submitted for review. All measurements were obtained according to NASCET criteria. A dose lowering technique was u tilized adhering to the principles of ALARA. COMPARISON: CT abdomen and pelvis of same day, CTA chest 11/17/2024 FINDINGS: CTA: Mild cardiomegaly. No pericardial effusion. Mild coronary artery calcifications. No thoracic aortic a neurysm or dissection. There is patency of the image great vessels. Respiratory motion artifact limit s the study. No central pulmonary emboli identified. CT CHEST: No dominant thyroid nodule or pathologically enlarged lymph nodes. Small right pleural effusion is in creased in size. Large left pleural effusion is also increased from prior. Intralobular septal thicke venu with intermixed groundglass densities. Volume loss with consolidation of the left lower lobe has progressed. Central airways are patent. CT abdomen and pelvis dictated separately. Left upper quadrant fluid collection. No acute fracture. IMPRESSION: 1. Limited exam. No central pulmonary emboli identified. 2. Increased size of the pleural effusions, small on the right and large on the left. 3. Progressive left greater than right bibasilar consolidation, likely atelectasis. Superimposed left lower lobe pneumonia would be difficult to exclude, however considered less likely. 4. Increased size of the left upper quadrant fluid collection. Please refer to the same day CT abdome n and pelvis study for additional details. ACT 112: Negative or not required by law. The above report was generated using voice recognition software. It may contain grammatical, syntax o r spelling errors. Electronically signed by: Brandon Saul M.D. 11/22/2024 11:54 AM
--- NOTE | 2024-11-22 12:09 | CT Scan Report ---
ABDOMEN AND PELVIS CT WITH IV CONTRAST HISTORY: Acute left-sided flank pain flank pain TECHNIQUE: Multiaxial CT images of the abdomen and pelvis were performed following the IV administrat ion of 112 cc of Optiray, A dose lowering technique was utilized adhering to the principles of ALARA . COMPARISON STUDY: CT chest of same day, CT abdomen and pelvis 11/17/2024 FINDINGS: Increased size of the left greater than right pleural effusions with dependent bibasilar co nsolidation. CTA of the chest is dictated separately. No pneumatosis or pneumoperitoneum. 12 mm left hepatic lobe cyst. A few additional small hypodensities of the right hepatic lobe are too small to ch aracterize. Patency of the hepatic and portal veins. Unremarkable gallbladder. Postoperative changes of the upper abdomen redemonstrated with prior distal pancreatectomy and splenectomy. There is increa sed size of the left upper quadrant fluid collection with peripheral enhancement on image 124 series 6 measuring 12.6 x 7.4 cm, previously 12.0 x 6.3 cm. The fluid collection is again noted abutting the adjacent stomach with a small loculated fluid component again noted adjacent to the superior pole le ft kidney. Status post removal of the previously noted surgical drain. Air and fluid are noted within the tract where the drainage catheter previously was present. Trace pelvic ascites is similar to alec or. Punctate nonobstructing left renal calculus. No ureteral calculi or hydronephrosis. Urinary bladder w all thickening with partial distention. Hysterectomy. Atherosclerosis of the aorta without aneurysm. Likely reactive 1.5 x 0.9 cm periaortic lymph node on image 186. Postoperative changes of the stomach are again noted. Colonic diverticulosis without acute diverticulitis. Noninflamed appendix. No acute fracture. IMPRESSION: 1. Postoperative changes of the abdomen redemonstrated with distal pancreatectomy and splenectomy and interval removal of the previously described left upper quadrant surgical drain. 2. Mildly increased size of the 12 cm peripherally enhancing left upper quadrant fluid collection com pared to the 11/17/2024 exam. Seroma versus developing abscess are the primary differential considerat ions. 3. Increased size of the left greater right layering pleural effusions with bibasilar consolidation. 4. Left nephrolithiasis without hydronephrosis. 5. Additional findings as above. ACT 112: Negative or not required by law. The above report was generated using voice recognition software. It may contain grammatical, syntax o r spelling errors. Electronically signed by: Brandon Saul M.D. 11/22/2024 12:07 PM
--- NOTE | 2024-11-22 12:39 | Pulmonary Consultation ---
<Statement entered by Sidney Hyde MD - 11/22/24 15:32> I, Sidney Hyde MD, supervised and reviewed the physical exam, assessment, plan, and management provided by the Advanced Care Provider, for this patient encounter. I discussed the case with them, confirmed the findings, and I concur with the proposed plan of care. I was available for consultation throughout the encounter and provided guidance as needed. After conducting the evaluation, I performed left Thoracentesis. Total time spent is greater than 50% in coordination of care (as documented) at patient's floor/unit and/or counseling patient, independent of time spent on separately-billable procedures: 65 minutes Date of Consultation November 22, 2024 Assessment & Plan (1) Pleural effusion: (2) Shortness of breath: Plan Vianca Jaquez is a 74-year-old female with past medical history of urinary urgency, hypothyroidism, anxiety, and sleep apnea on CPAP; who presented to [facility] with shortness fo breath and and pain in her low back. 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 Patient was doing well postoperatively but developed shortness of breath, left shoulder pain pain, and chest pain on 11/17/24. She was evaluated in the ED at [facility] at the time and transferred [place] [facility] Patient was discharged to home on 11/20/24 after being treated for a pancreatic fluid collection with antibiotics. Patient on 11/22/2024 had reoccurrence of her pain and shortness of breath prompting her to come to [facility] ED for evaluation. In the ED a CT of the chest showed a large left pleural effusion. Patient denies cough, fevers, chills, and night sweats. She endorses shortness of breath. She complains of left lower back pain. Pulmonary consulted for evaluation and possible thoracentesis of the left pleural effusion. Left pleural effusion r/t possible reactive from recent pancreas cyst removal and splenectomy v. other.; Shortness of breath -CT chest showed large left pleural effusion. -Thoracentesis performed with 1100 serosanguineous pleural fluid removed. -Post thoracentesis CXR showed no pneumothorax. -Pleural fluid differential pending -Pain control with IV tylenol, morphine, and Toradol. -Pulmonary for follow -Continue Augmentin started at [facility] for pancreatic fluid collection. 58 minutes is the time spent reviewing the chart, obtaining history, performing the physical exam, and updating the patient sugey bedside nurse. Thank you for allowing us to participate in this patient's care. please feel free to reach out with questions or concerns. History of Present Illness Reason for Consultation: Left pleural effusion Attending Physician: Flor Cat History of Present Illness Vianca Jaquez is a 74-year-old female with past medical history of urinary urgency, hypothyroidism, anxiety, and sleep apnea on CPAP; who presented to [facility] with shortness fo breath and and pain in her low back. 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 Patient was doing well postoperatively but developed shortness of breath, left shoulder pain pain, and chest pain on 11/17/24. She was evaluated in the ED at [facility] at the time and transferred [place] [facility] Patient was discharged to home on 11/20/24 after being treated for a pancreatic fluid collection with antibiotics. Patient on 11/22/2024 had reoccurrence of her pain and shortness of breath prompting her to come to [facility] ED for evaluation. In the ED a CT of the chest showed a large left pleural effusion. Patient denies cough, fevers, chills, and night sweats. She endorses shortness of breath. She complains of left lower back pain. Pulmonary consulted for evaluation and possible thoracentesis of the left pleural effusion. Allergies Allergy/AdvReac Type Severity Reaction Status Date / Time 2-octyl cyanoacrylate Allergy Severe Allergy to Unverified 11/22/24 12:45 [From SurgiSeal Stylus] Surgical Glue - itching/redness/sores ephedrine Allergy Mild RACING Verified 11/22/24 12:45 HEART RATE nickel Allergy Mild LOCAL Verified 11/22/24 12:45 CONTRACT DERMITIS aspirin AdvReac Unknown told not Verified 11/22/24 12:45 take d/t gastric surgery ibuprofen AdvReac Unknown told to Verified 11/22/24 12:45 not take d/t gasric surgery levofloxacin AdvReac Verified 11/22/24 12:45 Home Medications Medication Instructions Recorded Confirmed Type cholecalciferol (vitamin D3) 50 2,000 unit PO QAM 11/04/17 11/22/24 History mcg (2,000 unit) capsule (Vitamin D3) pndybrchxbni-plnjxvfa-spbci acid 1 tab PO QAM 11/04/17 11/22/24 History 400 mcg-vitamin K 80 mcg capsule (Multi For Her 50 Plus) CPAP Supplies #1 ea 05/17/19 11/03/24 Rx cyanocobalamin (vitamin B-12) 1,000 mcg PO DAILY #30 caps 12/31/21 11/22/24 Rx 1,000 mcg capsule CPAP Machine #1 ea 01/09/23 11/03/24 Rx solifenacin 5 mg tablet (Vesicare) 5 mg PO DAILY #90 tabs 01/04/24 11/22/24 Rx vibegron 75 mg tablet (Gemtesa) 75 mg PO DAILY #90 tabs 04/04/24 11/22/24 Rx lorazepam 0.5 mg tablet 0.5 mg PO DAILY PRN anxiety #20 04/22/24 11/22/24 Rx tabs escitalopram oxalate 10 mg tablet 10 mg PO QAM #90 tabs 05/11/24 11/22/24 Rx (Lexapro) levothyroxine 112 mcg tablet 112 mcg PO DAILY #90 tabs 07/20/24 11/22/24 Rx enoxaparin 40 mg/0.4 mL 40 mg subcut QAM 11/17/24 11/22/24 History subcutaneous syringe metformin 500 mg tablet 1,000 mg PO QAM 11/17/24 11/22/24 History omeprazole 40 mg capsule,delayed 40 mg PO DAILYBB 11/17/24 11/22/24 History release oxycodone 5 mg tablet 5 mg PO TID PRN Pain 11/17/24 11/22/24 History rosuvastatin 10 mg tablet 10 mg PO DAILY 11/17/24 11/22/24 History semaglutide (weight loss) 1.7 0 mg subcut Q7D 11/17/24 11/22/24 History mg/0.75 mL subcutaneous pen injector (Wegovy) acetaminophen 500 mg tablet 500 mg PO Q6H PRN Pain 11/22/24 11/22/24 History amoxicillin 875 mg-potassium 1 tab PO BID 11/22/24 11/22/24 History clavulanate 125 mg tablet Patient History Medical History Urinary urgency Encounter for pre-operative examination Hypothyroidism Anxiety Sleep apnea CPAP Surgical History History of tonsillectomy and adenoidectomy History of colonoscopy History of lithotripsy History of total knee replacement History of open reduction and internal fixation (ORIF) procedure History of hysterectomy History of gastric bypass History of ear surgery Family History Father Diabetes Family history of diabetes mellitus Hypothyroidism Mother Family history of diabetes mellitus Dementia Hypothyroidism Hypertension Macular degeneration Brother Down syndrome Lung cancer Sister Lung cancer Grandfather Diabetes Grandmother (Maternal) Stroke Other No family history of adverse response to anesthesia Denies family history of Colon cancer Ovarian cancer Prostate cancer Myocardial infarction Breast cancer Social History Smoking Status: Never smoker Tobacco Type: Cigarettes Age Started Using Tobacco: 19; Age Quit Using Tobacco: 50; packs per day: 0.5; Cigarettes Per Day: 10; Second Hand Exposure: No; Do You Dip or Chew Tobacco: No; Hx Alcohol Use: Yes (1 glass of wince maybe 4 times a year) Alcohol type: wine Alcohol Intake Frequency: Monthly or Less Hx Substance Use: No Preferred Language: Japanese Communication Ability: Effective Communication Ability Comment: BILAT AIDES Visual Impairment: No Limitations Hearing Ability: Use of Hearing Aid Humanities Department Chair Required: No Beliefs That Will Affect Care: Spiritual marital status: Single Current Living Situation: Alone current occupational status: retired Feels Safe at Home: Yes Childhood Exposure to Second-Hand Smoke: Yes Diet: regular Dental Care, Regularly: Yes Physical Activity Frequency: Daily Physical Activity Frequency Comment: bike, yoga, walk Seatbelt Use: always Sunscreen Use: No Assistive Devices: Walker Review of Systems 2 Review of Systems: All systems reviewed & are unremarkable except as noted in HPI & below Physical Exam 2 Physical Exam: VITALS: Reviewed. WEIGHT/BMI reviewed. GEN: Healthy appearing, well-developed, NAD. PSYCH: Good Judgment. AOx3. Normal memory, mood, and affect. HEENT -Head: NC/AT; -Eyes: PERRL, EOMI. No discharge or redn ess; -Ears: External ears are normal. -Nose: Normal nares. NECK: Supple, with no masses. CV: RRR, no m/r/g. LUNGS: Clear in b/l upper lobes, diminished in bases L>R. Chest rise symmetrical. Breathing mildly labored. ABD: N/A : N/A SKIN: Warm, well perfused. No skin rashes or abnormal lesions. MSK: No deformities, Normal gait. EXT: No clubbing, cyanosis, or edema. NEURO: Ambulating with no limitations. Normal muscle strength and tone. No focal deficits. Results & Data Results & Data Vital Signs (Past 12 Hours) Vital Signs Temp Pulse Resp BP Pulse Ox O2 Del Method 11/22/24 11:06 71 21 120/78 95 11/22/24 11:04 120/78 11/22/24 11:04 120/78 11/22/24 11:04 120/78 11/22/24 10:33 74 20 125/75 95 11/22/24 10:29 73 11/22/24 10:29 Room Air 11/22/24 10:29 Room Air 11/22/24 10:17 Room Air 11/22/24 09:39 36.7 C 80 19 135/78 96 Room Air Laboratory Results 11/22/24 10:17 11/22/24 10:17 Abnormal Lab Results 11/22/24 10:17 WBC 18.79 H RBC 3.42 L Hgb 9.7 L Hct 30.2 L MCV 88.3 MCH 28.4 MCHC 32.1 RDW Std Deviation 46.5 H RDW Coeff of Cheri 14.5 Plt Count 828 H MPV 11.6 Immature Gran % (Auto) 3.1 Neut % (Auto) 76.1 Lymph % (Auto) 8.8 [place] % (Auto) 9.6 Eos % (Auto) 2.0 Baso % (Auto) 0.4 Neut # (Auto) 14.30 H Lymph # (Auto) 1.65 [place] # (Auto) 1.81 H Eos # (Auto) 0.37 Baso # (Auto) 0.08 Immature Gran # (Auto) 0.58 H Absolute Nucleated RBC 0.03 Nucleated RBC % (auto) 0.2 Sodium 139 Potassium 3.7 Chloride 106 Carbon Dioxide 26 Anion Gap 7 BUN 8 Creatinine 0.63 Est Cr Clr Drug Dosing 90.7 eGFR 93.03 BUN/Creatinine Ratio 12.7 Glucose 105 H Lactate 0.9 Calcium 9.7 Magnesium 2.0 Total Bilirubin 0.5 Direct Bilirubin 0.2 AST 19 ALT 22 Alkaline Phosphatase 364 H Troponin I High Sens 7.0 Total Protein 5.9 L Albumin 2.8 L Procalcitonin 0.15 Diagnostic Findings Abdomen/Pelvis CT 11/22/24 10:[address] WITH IV CONTRAST HISTORY: Acute left-sided flank pain flank pain TECHNIQUE: Multiaxial CT images of the abdomen and pelvis were performed following the IV administration of 112 cc of Optiray, A dose lowering technique was utilized adhering to the principles of ALARA. COMPARISON STUDY: CT chest of same day, CT abdomen and pelvis 11/17/2024 FINDINGS: Increased size of the left greater than right pleural effusions with dependent bibasilar consolidation. CTA of the chest is dictated separately. No pneumatosis or pneumoperitoneum. 12 mm left hepatic lobe cyst. A few additional small hypodensities of the right hepatic lobe are too small to characterize. Patency of the hepatic and portal veins. Unremarkable gallbladder. Postoperative changes of the upper abdomen redemonstrated with prior distal pancreatectomy and splenectomy. There is increased size of the left upper quadrant fluid collection with peripheral enhancement on image 124 series 6 measuring 12.6 x 7.4 cm, previously 12.0 x 6.3 cm. The fluid collection is again noted abutting the adjacent stomach with a small loculated fluid component again noted adjacent to the superior pole left kidney. Status post removal of the previously noted surgical drain. Air and fluid are noted within the tract where the drainage catheter previously was present. Trace pelvic ascites is similar to prior. Punctate nonobstructing left renal calculus. No ureteral calculi or hydronephrosis. Urinary bladder wall thickening with partial distention. Hysterectomy. Atherosclerosis of the aorta without aneurysm. Likely reactive 1.5 x 0.9 cm periaortic lymph node on image 186. Postoperative changes of the stomach are again noted. Colonic diverticulosis without acute diverticulitis. Noninflamed appendix. No acute fracture. IMPRESSION: 1. Postoperative changes of the abdomen redemonstrated with distal pancreatectomy and splenectomy and interval removal of the previously described left upper quadrant surgical drain. 2. Mildly increased size of the 12 cm peripherally enhancing left upper quadrant fluid collection compared to the 11/17/2024 exam. Seroma versus developing abscess are the primary differential considerations. 3. Increased size of the left greater right layering pleural effusions with bibasilar consolidation. 4. Left nephrolithiasis without hydronephrosis. 5. Additional findings as above. ACT 112: Negative or not required by law. The above report was generated using voice recognition software. It may contain grammatical, syntax or spelling errors. Electronically signed by: Brandon Saul M.D. 11/22/2024 12:07 PM Chest CTA 11/22/24 10:24 CT angio chest PE protocol CT DOSE: 2306.91 mGy.cm HISTORY: 74 years-old Female with PE. No acute shortness of breath with upper abdominal pain TECHNIQUE: Multiple CTA images of the chest were obtained after the intravenous administration of 112 ml Optiray. Coronal and sagittal MIPS were obtained from the axial data set and were submitted for review. All measurements were obtained according to NASCET criteria. A dose lowering technique was utilized adhering to the principles of ALARA. COMPARISON: CT abdomen and pelvis of same day, CTA chest 11/17/2024 FINDINGS: CTA: Mild cardiomegaly. No pericardial effusion. Mild coronary artery calcifications. No thoracic aortic aneurysm or dissection. There is patency of the image great vessels. Respiratory motion artifact limits the study. No central pulmonary emboli identified. CT CHEST: No dominant thyroid nodule or pathologically enlarged lymph nodes. Small right pleural effusion is increased in size. Large left pleural effusion is also increased from prior. Intralobular septal thickening with intermixed groundglass densities. Volume loss with consolidation of the left lower lobe has progressed. Central airways are patent. CT abdomen and pelvis dictated separately. Left upper quadrant fluid collection. No acute fracture. IMPRESSION: 1. Limited exam. No central pulmonary emboli identified. 2. Increased size of the pleural effusions, small on the right and large on the left. 3. Progressive left greater than right bibasilar consolidation, likely atelectasis. Superimposed left lower lobe pneumonia would be difficult to exclude, however considered less likely. 4. Increased size of the left upper quadrant fluid collection. Please refer to the same day CT abdomen and pelvis study for additional details. ACT 112: Negative or not required by law. The above report was generated using voice recognition software. It may contain grammatical, syntax or spelling errors. Electronically signed by: Brandon Saul M.D. 11/22/2024 11:54 AM PG Care Time/CCT Total # of Minutes Spent Total Time Spent with Patient: Total time spent is greater than 50% in coordination of care (as documented) at patient's floor/unit and/or counseling patient: Coding Level of Care Code 15335 INT INP/OBS CARE 2/55MIN Diagnoses Pleural effusion J90 Shortness of breath R06.02
--- NOTE | 2024-11-22 12:59 | History & Physical Report ---
Date of Service November 22, 2024 Assessment & Plan (1) Pleural effusion: Plan: Patient presents to the hospital worsening shortness of breath. Found to have bilateral pleural effusion, left more than the right Recently had surgery for pancreatic cyst and also had peripancreatic fluid collection. The etiology of the pleural effusion could be multifactorial. Will rule out congestive heart failure. Obtain BNP 2D echo done 11/04/24 shows Ejection fraction 55 to 60%, with grade 1 diastolic dysfunction Consult pulmonology for thoracentesis (2) Intra-abdominal fluid collection: Plan: Patient recently had a surgery for pancreatic cyst at [facility] and later developed peripancreatic fluid collection. CT abdomen and pelvis still shows some evidence of peripancreatic fluid collection, which could be abscess or seroma Patient is afebrile, WBC which was elevated a few days ago has been trending down, 18,000 today Will start IV Zosyn Plan Admit to [facility] Full code History of Present Illness Chief Complaint: Worsening shortness of breath Primary Care Provider: David Gomez MD This is a 74-year-old female with a history of anxiety, pancreatic cyst, status post surgery, who presents to the hospital today with complaints of worsening shortness of breath. Patient was diagnosed with pancreatic and splenic cyst and had surgery at [facility]. Subsequently she developed peripancreatic fluid col lection and a drain was inserted, the drain has since been removed. She presents to the hospital today with worsening shortness of breath, denies chest pain denies fever or chills. Here in the emergency department, vital signs stable, blood pressure 120/74 pulse 71 respiratory rate 21 temperature 98 saturating well on room air however a CT scan of the chest was done which showed evidence of bilateral pleural effusion left more than the right and increased in size compared to previous studies a few days ago. It is the patient's wish for her to stay here at [facility] for treatment instead of being transferred to [facility] where she got her surgery. She will be admitted to the hospital, pulmonology consulted for further evaluation and further management. Allergies Allergy/AdvReac Type Severity Reaction Status Date / Time 2-octyl cyanoacrylate Allergy Severe Allergy to Unverified 11/22/24 12:45 [From SurgiSeal Stylus] Surgical Glue - itching/redness/sores ephedrine Allergy Mild RACING Verified 11/22/24 12:45 HEART RATE nickel Allergy Mild LOCAL Verified 11/22/24 12:45 CONTRACT DERMITIS aspirin AdvReac Unknown told not Verified 11/22/24 12:45 take d/t gastric surgery ibuprofen AdvReac Unknown told to Verified 11/22/24 12:45 not take d/t gasric surgery levofloxacin AdvReac Verified 11/22/24 12:45 Home Medications Medication Instructions Recorded Confirmed Type cholecalciferol (vitamin D3) 50 2,000 unit PO QAM 11/04/17 11/17/24 History mcg (2,000 unit) capsule (Vitamin D3) pqsttkifgnsw-pkxxbvat-tgvwl acid 1 tab PO QAM 11/04/17 11/17/24 History 400 mcg-vitamin K 80 mcg capsule (Multi For Her 50 Plus) CPAP Supplies #1 ea 05/17/19 11/03/24 Rx cyanocobalamin (vitamin B-12) 1,000 mcg PO DAILY #30 caps 12/31/21 11/17/24 Rx 1,000 mcg capsule CPAP Machine #1 ea 01/09/23 11/03/24 Rx solifenacin 5 mg tablet (Vesicare) 5 mg PO DAILY #90 tabs 01/04/24 11/17/24 Rx vibegron 75 mg tablet (Gemtesa) 75 mg PO DAILY #90 tabs 04/04/24 11/17/24 Rx lorazepam 0.5 mg tablet 0.5 mg PO DAILY PRN anxiety #20 04/22/24 11/17/24 Rx tabs escitalopram oxalate 10 mg tablet 10 mg PO QAM #90 tabs 05/11/24 11/17/24 Rx (Lexapro) levothyroxine 112 mcg tablet 112 mcg PO DAILY #90 tabs 07/20/24 11/17/24 Rx enoxaparin 40 mg/0.4 mL 40 mg subcut QAM 11/17/24 11/17/24 History subcutaneous syringe metformin 500 mg tablet 1,000 mg PO QAM 11/17/24 11/17/24 History omeprazole 40 mg capsule,delayed 40 mg PO DAILYBB 11/17/24 11/17/24 History release oxycodone 5 mg tablet 5 mg PO TID PRN Pain 11/17/24 11/17/24 History rosuvastatin 10 mg tablet 10 mg PO DAILY 11/17/24 11/17/24 History semaglutide (weight loss) 1.7 0 mg subcut Q7D 11/17/24 11/17/24 History mg/0.75 mL subcutaneous pen injector (Wegovy) acetaminophen 500 mg tablet 500 mg PO Q6H PRN Pain 11/22/24 11/22/24 History amoxicillin 875 mg-potassium 1 tab PO BID 11/22/24 11/22/24 History clavulanate 125 mg tablet Past Med/Surg History Problem List (Updated 11/22/24 @ 12:57 by Flor Olivares MD) Intra-abdominal fluid collection Tachycardia (Acute) Hypotension (Acute) Leukocytosis (Acute) Pleural effusion (Acute) Intra-abdominal abscess (Acute) Pleuritic chest pain (Acute) Abnormal finding on EKG Hyperparathyroidism Pancreatic lesion Coronary artery calcification Lipoma Obesity Asymptomatic postsurgical menopause Dietary counseling and surveillance History of kidney stones Hx of gastric bypass Prediabetes Intraabdominal hemorrhage s/p gastric sleeve/"resolved" Mood disorder (Chronic) Hypothyroidism (Chronic) Obstructive sleep apnea of adult (Chronic) Urinary incontinence Status post total left knee replacement Status post right knee replacement Hyperglycemia (Chronic) Chronic venous insufficiency History of colon polyps Posterior tibialis tendon insufficiency Weight gain Urge incontinence of urine Medical History Urinary urgency Encounter for pre-operative examination Hypothyroidism Anxiety Sleep apnea CPAP Surgical History History of tonsillectomy and adenoidectomy History of colonoscopy History of lithotripsy History of total knee replacement History of open reduction and internal fixation (ORIF) procedure History of hysterectomy History of gastric bypass History of ear surgery Family History Father Diabetes Family history of diabetes mellitus Hypothyroidism Mother Family history of diabetes mellitus Dementia Hypothyroidism Hypertension Macular degeneration Brother Down syndrome Lung cancer Sister Lung cancer Grandfather Diabetes Grandmother (Maternal) Stroke Other No family history of adverse response to anesthesia Denies family history of Colon cancer Ovarian cancer Prostate cancer Myocardial infarction Breast cancer Social History Smoking Status: Never smoker Tobacco Type: Cigarettes Age Started Using Tobacco: 19; Age Quit Using Tobacco: 50; packs per day: 0.5; Cigarettes Per Day: 10; Second Hand Exposure: No; Do You Dip or Chew Tobacco: No; Hx Alcohol Use: Yes (1 glass of wince maybe 4 times a year) Alcohol type: wine Alcohol Intake Frequency: Monthly or Less Hx Substance Use: No Preferred Language: Nicaraguan Communication Ability: Effective Communication Ability Comment: BILAT AIDES Visual Impairment: No Limitations Hearing Ability: Use of Hearing Aid Rag Room Supervisor Required: No Beliefs That Will Affect Care: Spiritual marital status: Single Current Living Situation: Alone current occupational status: retired Feels Safe at Home: Yes Childhood Exposure to Second-Hand Smoke: Yes Diet: regular Dental Care, Regularly: Yes Physical Activity Frequency: Daily Physical Activity Frequency Comment: bike, yoga, walk Seatbelt Use: always Sunscreen Use: No Assistive Devices: Walker Review of Systems Review of Systems: All systems reviewed are negative, apart from the ones contained in the history. Physical Exam Physical Exam: The patient is awake, alert and oriented 3, well developed and well nourished, normocephalic and atraumatic, lying in bed and in no acute distress. HEENT--PERRL, EOMI, mucous membranes and oropharynx mildly dry Neck--supple. No JVD. No bruits. Thyroid normal, trachea midline, no adenopa thy. Heart--normal S1 and S2. No murmurs, rubs or gallops. Lungs-Reduced air entry on auscultation Abdomen--normal bowel sounds and soft. Extremities--no cyanosis or clubbing. Trace edema. Dermatologic--normal skin turgor, normal color, no abnormal lymph nodes, no rash. Neurologic--cranial nerves II through XII grossly intact. Rheumatologic--normal range of motion. Psychiatric--normal affect. Results & Data Results & Data Vital Signs (Past 12 Hours) Vital Signs Temp Pulse Resp BP Pulse Ox O2 Del Method 11/22/24 11:06 71 21 120/78 95 11/22/24 11:04 120/78 11/22/24 11:04 120/78 11/22/24 11:04 120/78 11/22/24 10:33 74 20 125/75 95 11/22/24 10:29 73 11/22/24 10:29 Room Air 11/22/24 10:29 Room Air 11/22/24 10:17 Room Air 11/22/24 09:39 98.1 F 80 19 135/78 96 Room Air PG Care Time/CCT Total # of Minutes Spent Total Time Spent with Patient: Total time spent is greater than 50% in coordination of care (as documented) at patient's floor/unit and/or counseling patient: Coding Level of Care Code 59273 INT INP/OBS CARE 3/75MIN Diagnoses Pleural effusion J90 Intra-abdominal fluid collection R18.8 Time Spent (min) 75
[2024-11-22] MEDS: MoRPHine SULFATE 2 MG/ML CARP IV STA (14:10)
[2024-11-22] MEDS: ACETAMINOPHEN 1,000 MG/100 ML VIAL IV STA (14:10)
--- NOTE | 2024-11-22 14:10 | XRay Report ---
XR chest 1V portable CLINICAL HISTORY: S/P Thoracentesis COMPARISON STUDY: 11/17/2024 FINDINGS: Stable cardiomegaly without pulmonary vascular congestion. There is mild residual opacity a t the left base, improved. No pneumothorax seen. IMPRESSION: No pneumothorax seen. ACT 112: Negative or not required by law. Electronically signed by: Thee Hussein M.D. 11/22/2024 2:08 PM
--- NOTE | 2024-11-22 14:21 | Electrocardiogram Report ---
Test Reason : Blood Pressure : */* mmHG Vent. Rate : 74 BPM Atrial Rate : 74 BPM P-R Int : 168 ms QRS Dur : 90 ms QT Int : 402 ms P-R-T Axes : 51 -4 22 degrees QTcB Int : 446 ms Normal sinus rhythm Normal ECG When compared with ECG of 17-Nov-2024 07:33, Nonspecific T wave abnormality no longer evident in Lateral leads Confirmed by David Hoyos ([id number]) on 11/22/2024 2:20:48 PM Referred By: David Pro Confirmed By: David Hoyos
[2024-11-22] MEDS: KETOROLAC 30 MG/ML VIAL IV ONE (14:43)
--- NOTE | 2024-11-22 14:56 | Electrocardiogram Report ---
Test Reason : Blood Pressure : */* mmHG Vent. Rate : 80 BPM Atrial Rate : 80 BPM P-R Int : 174 ms QRS Dur : 92 ms QT Int : 398 ms P-R-T Axes : 61 -9 25 degrees QTcB Int : 459 ms Normal sinus rhythm Normal ECG When compared with ECG of 22-Nov-2024 09:55, No significant change was found Confirmed by David Hoyos ([id number]) on 11/22/2024 2:56:11 PM Referred By: David Gomez Confirmed By: David Hoyos
[2024-11-22 15:08] LABS: Albumin Level 2.8 gm/dl (3.4-5.0); Bilirubin,Total 0.5 mg/dl (0.2-1.0); Total Protein 5.9 gm/dl (6.0-8.3)
--- NOTE | 2024-11-22 15:35 | Billing Data ---
Date of Service November 22, 2024 Coding Level of Care Code 99764 IN/OBS CONSULT LVL 4,60M Time Spent (min) 65 Comment (1) Pleural effusion: (2) Shortness of breath
[2024-11-22] MEDS ORDERED: ONDANSETRON INJ 2 MG/ML 2 ML VIAL IV PRN (15:37)
[2024-11-22] MEDS: PIPERACILLIN/TAZOBACTAM 4.5 GM/100 ML BAG IV ONE (16:45)
[2024-11-22 16:47] LABS: Appearance Pleural Fluid Cloudy; Color Pleural Fluid Red; RBC Pleural Fluid Auto 39000 /uL; Source Pleural Fluid Left Lung; WBC Pleural Fluid Auto 6205 /uL
--- NOTE | 2024-11-22 17:32 | Procedure Note ---
Procedure Note Date of Service November 22, 2024 Procedure: Diagnostic therapeutic ultrasound-guided catheter left thoracentesis Laundry Attendant: Sidney Hyde MD. Indication: Symptomatic pleural effusion Consent: Signed by patient and verified with time-out prior to procedure Anesthesia: 1% lidocaine without epinephrine local. Procedure: Consent was verified and time-out performed. Appropriate imaging studies were reviewed prior to the procedure. Patient was placed in a seated position and limited thoracic ultrasound was performed of the left chest. Appropriate site above the diaphragm for thoracentesis was selected. The skin was prepped and draped in normal sterile fashion. Lidocaine was used for local analgesia. Fluid was aspirated via the finder needle. A small skin xena was made with the scalpel and the catheter over the needle apparatus was advanced over the rib into the pleural space. Using the syringe one-way valve system, a total of 1000 mL's of blood-tinged fluid was removed. Procedure was terminated due to no more fluid could be drained. The catheter was removed and observed to be intact. A sterile dressing was applied. Post procedure chest x-ray was ordered, and it showed no pneumothorax. Fluid was sent for labs, culture and cytology. Complications: None Blood [place]: [place]imal [facility] [place] Codes (Charges) Pulmonary/Thoracic Procedure 1: Pulmonary and Thoracic: 12203 Thoracentesis w/o imaging Coding CPT Codes Pulmonary/Thoracic - Pulmonary and Thoracic: 25360 Thoracentesis w/o imaging ([id number]) Additional Codes Date of Service (PG.SURGERY)
[2024-11-22] MEDS: CALCIUM CARBONATE 500 MG CHEWABLE TAB PO PRN (20:07)
[2024-11-22] MEDS: PIPERACILLIN/TAZOBACTAM 4.5 GM/100 ML BAG IV SCH (20:12)
[2024-11-22] MEDS: ACETAMINOPHEN 325 MG TAB PO PRN (23:04)
--- NOTE | 2024-11-23 01:40 | XRay Report ---
Exam(s): XR CXR 1 VIEW EXAM: XR Chest, 1 View CLINICAL HISTORY: chest pain. TECHNIQUE: Frontal view of the chest. COMPARISON: Portable chest single view 11/22/2024 FINDINGS: Lungs: The lungs are somewhat hypoexpanded, but there is improved aeration when compared to the prior examination. Similar right infrahilar changes. Subsegmental changes of the left lung base suggested. Evaluation is somewhat limited by overlying soft tissues. Pleural space: The left costophrenic margin is somewhat obscured. No large pleural effusion noted. The right costophrenic margin is sharp. Heart: The cardiac silhouette is presumed accentuated by portable technique. Mediastinum: No significant abnormality identified. The trachea is midline. Bones/joints: Unremarkable. No acute fracture. IMPRESSION: The lungs are somewhat hypoexpanded, but there is improved aeration when compared to the prior examination. Similar right infrahilar changes may represent atelectasis or subtle infection. Subsegmental changes of the left lung base suggested. Evaluation is somewhat limited by overlying soft tissues. Small left pleural effusion is not excluded. Electronically signed by: Earl Sexton MD 11/23/24 01:39 AM
[2024-11-23] MEDS ORDERED: LEVOTHYROXINE SODIUM 112 MCG TABLET PO SCH (06:30)
[2024-11-23 07:00] LABS: Appearance Urine Clear (Clear); Glucose Urine UA Negative (Negative)
[2024-11-23 07:30] LABS: Hematocrit (blood only) 28.5 % (37.0-47.0); Hemoglobin 9.4 g/dl (12.0-16.0); Mean Corpuscular Hemoglobin 29.0 pg (25.0-34.0); Mean Corpuscular Volume 88.0 fL (80.0-100.0); Platelet Count 886 K/uL (130-400); RDW Standard Deviation 47.1 fL (36.4-46.3); Red Blood Count 3.24 M/uL (4.20-5.40); White Blood Count 18.92 K/ul (4.8-10.8)
[2024-11-23] MEDS: LEVOTHYROXINE SODIUM 112 MCG TABLET PO SCH (07:42)
[2024-11-23] MEDS: VIBEGRON 75 MG TAB PO SCH (07:42)
[2024-11-23] MEDS: ROSUVASTATIN CALCIUM 10 MG TAB PO SCH (07:42)
[2024-11-23] MEDS: OXYBUTYNIN CHLORIDE XL 5 MG TABCR PO SCH (07:42)
[2024-11-23 07:50] LABS: Anion Gap 5.0 (3-11); Blood Urea Nitrogen 9.0 mg/dl (6-23); Calcium 9.6 mg/dl (8.6-10.3); Carbon Dioxide 30.0 mmol/L (21-32); Chloride 104.0 mmol/L (98-107); Creatinine Clr Calc Pharmacy 73.2 ml/min; Glucose 110.0 mg/dl (70-99(Fasting)); Potassium 4.1 mmol/L (3.5-5.1); Sodium 139.0 mmol/L (136-145)
[2024-11-23 09:18] LABS: Lymphocytes, Fluid 15 %; Mono,Macrophage,Mesothelial 12 %; Neutrophils, Fluid 50 %; Other Cells Pleural Cells 23 %
--- NOTE | 2024-11-23 11:03 | Hospitalist Progress Note ---
Date of Service November 23, 2024 Assessment & Plan (1) Pleural effusion: Plan: Patient presents to the hospital worsening shortness of breath. Found to have bilateral pleural effusion, left more than the right Recently had surgery for pancreatic cyst and also had peripancreatic fluid collection. The etiology of the pleural effusion could be multifactorial. Thoracentesis was done with removal of 1.1L of fluid with transudative picture, gram stain pending 2D echo done 11/04/24 shows Ejection fraction 55 to 60%, with grade 1 diastolic dysfunction, BNP is wnl Appreciate pulm (2) Intra-abdominal fluid collection: Plan: Patient recently had a surgery for pancreatic cyst at [facility] and later developed peripancreatic fluid collection. CT abdomen and pelvis still shows some evidence of peripancreatic fluid collection, which could be abscess or seroma Patient is afebrile, WBC which was elevated a few days ago has been trending down, 18,000 today Will continue IV Zosyn Plan disposition: hopefully d/c in the next 24 hrs Full code Admission and Anticipated Discharge Date Admission Date: November 22, 2024 Subjective patient seen and examined, feels some pain at the thoracentesis site, radiating to the [facility] Review of Systems Review of Systems: All systems reviewed are negative, apart from the ones contained in the history. Physical Exam Physical Exam: The patient is awake, alert and oriented 3, well developed and well nourished, normocephalic and atraumatic, lying in bed and in no acute distress. HEENT--PERRL, EOMI, mucous membranes and oropharynx mildly dry Neck--supple. No JVD. No bruits. Thyroid normal, trachea midline, no adenopathy. Heart--normal S1 and S2. No murmurs, rubs or gallops. Lungs-Reduced air entry on auscultation Abdomen--normal bowel sounds and soft. Extremities--no cyanosis or clubbing. Trace edema. Dermatologic--normal skin turgor, normal color, no abnormal lymph nodes, no rash. Neurologic--cranial nerves II through XII grossly intact. Rheumatologic--normal range of motion. Psychiatric--normal affect. Results & Data Results & Data Vital Signs (Past 12 Hours) Vital Signs Temp Pulse Resp BP Pulse Ox O2 Del Method 11/23/24 07:54 97.7 F 79 19 144/84 H 94 Room Air 11/23/24 07:30 Room Air PG Care Time/CCT Total # of Minutes Spent Total Time Spent with Patient: Total time spent is greater than 50% in coordination of care (as documented) at patient's floor/unit and/or counseling patient: Coding Level of Care Code 14271 SUB INP/OBS CARE 2/35MIN Diagnoses Pleural effusion J90 Intra-abdominal fluid collection R18.8 Time Spent (min) 35
--- NOTE | 2024-11-23 15:06 | Pulmonology Progress Note ---
<Statement entered by Sidney Hyde MD - 11/23/24 16:09> I, Sidney Hyde MD, supervised and reviewed the physical exam, assessment, plan, and management as documented by the Advanced Care Provider for this patient encounter. I discussed the case with them, confirmed the findings, and I concur with the proposed plan of care. I was available for consultation throughout the encounter and provided guidance as needed. Date of Service November 23, 2024 Assessment & Plan (1) Shortness of breath: (2) Pleural effusion: (3) Pleuritic chest pain: Plan Vianca Jaquez is a 74-year-old female with past medical history of urinary urgency, hypothyroidism, anxiety, and sleep apnea on CPAP; who presented to [facility] with shortness fo breath and and pain in her low back. 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 Patient was doing well postoperatively but developed shortness of breath, left shoulder pain pain, and chest pain on 11/17/24. She was evaluated in the ED at [facility] at the time and [place] [facility] discharged to home on 11/20/24 after being treated for a pancreatic fluid collection with antibiotics. Patient on 11/22/2024 had reoccurrence of her pain and shortness of breath prompting her to come to [facility] ED for evaluation. In the ED a CT of the chest showed a large left pleural effusion. Patient denies cough, fevers, chills, and night sweats. She endorses shortness of breath. She complains of left lower back pain. Pulmonary consulted for evaluation and possible thoracentesis of the left pleural effusion. Thoracentesis on 11/22 with 1100 removed. Left pleural effusion r/t possible reactive from recent pancreas cyst removal and splenectomy v. other.; Shortness of breath -CT chest showed large left pleural effusion. -Thoracentesis performed with 1100 serosanguineous pleural fluid removed 11/22. -Post thoracentesis CXR showed no pneumothorax. -Pleural fluid differential showed extudative (LDH 340), neutrophil (50%) predominance, pH 7.44, gram stain negative, path pending. -Pain control with IV tylenol and oxycodone. Patient having some persistent discomfort but improved from yesterday. -Pulmonary to follow -Continue Aug[place] [facility] [place] fluid collection. 35 minutes is the time spent reviewing the chart, obtaining history, performing the physical exam, and updating the patient sugey bedside nurse. Thank you for allowing us to participate in this patient's care. please feel free to reach out with questions or concerns. Admission and Anticipated Discharge Date Admission Date: November 22, 2024 Subjective Patient more comfortable this am. Did have significant chest pain overnight with repeat chest x-ray showing no pneumothorax and improved aeration of the left lower lobe. Preliminary findings of pleural fluid showed transudative effusion neutrophil (50%) predominance, pH 7.44, gram stain negative, path pending. Review of Systems 2 Review of Systems: All systems reviewed & are unremarkable except as noted in HPI & below Physical Exam 2 Physical Exam: VITALS: Reviewed. WEIGHT/BMI reviewed. GEN: Healthy appearing, well-developed, NAD. PSYCH: Good Judgment. AOx3. Normal memory, mood, and affect. HEENT -Head: NC/AT; -Eyes: PERRL, EOMI. No discharge or redn ess; -Ears: External ears are normal. -Nose: Normal nares. NECK: Supple, with no masses. CV: RRR, no m/r/g. LUNGS: Clear in b/l upper lobes, diminished in bases L>R. Chest rise symmetrical. Breathing mildly labored. ABD: N/A : N/A SKIN: Warm, well perfused. No skin rashes or abnormal lesions. MSK: No deformities, Normal gait. EXT: No clubbing, cyanosis, or edema. NEURO: Ambulating with no limitations. Normal muscle strength and tone. No focal deficits. Results & Data Results & Data Vital Signs (Past 12 Hours) Vital Signs Temp Pulse Resp BP Pulse Ox O2 Del Method 11/23/24 07:54 36.5 C 79 19 144/84 H 94 Room Air 11/23/24 07:30 Room Air Laboratory Results 11/23/24 07:03 11/23/24 07:03 Abnormal Lab Results 11/22/24 11/22/24 11/23/24 10:17 14:00 06:37 WBC RBC Hgb Hct MCV MCH MCHC RDW Std Deviation RDW Coeff of Cheri Plt Count MPV Absolute Nucleated RBC Nucleated RBC % (auto) Sodium Potassium Chloride Carbon Dioxide Anion Gap BUN Creatinine Est Cr Clr Drug Dosing eGFR BUN/Creatinine Ratio Glucose Calcium Total Bilirubin 0.5 Lactate Dehydrogenase 315 H Total Protein 5.9 L Albumin 2.8 L Urine Color Yellow Urine Appearance Clear Urine pH 6.5 Ur Specific Grayson 1.025 Urine Protein Negative Urine Glucose (UA) Negative Urine Ketones Negative Urine Blood Negative Urine Nitrite Negative Urine Bilirubin Negative Urine Urobilinogen Negative Ur Leukocyte Esterase Negative Urine Comment Fluid Neutrophils % 50 Fluid Lymphocytes % 15 Fluid Meso/Macro/Dallam % 12 Fluid Slide Review Pleural Fluid Source Left Lung Pleural Color Red Pleural Appearance Cloudy Pleural WBC (Auto) 6205 Pleural RBC (Auto) 67509 Pleural Other Cells 23 Pleural Total Protein 3.2 Pleural LDH 340 Pleural Glucose 85 Pleural Amylase 19 11/23/24 07:03 WBC 18.92 H RBC 3.24 L Hgb 9.4 L Hct 28.5 L MCV 88.0 MCH 29.0 MCHC 33.0 RDW Std Deviation 47.1 H RDW Coeff of Cheri 14.6 H Plt Count 886 H MPV 11.5 Absolute Nucleated RBC 0.03 Nucleated RBC % (auto) 0.2 Sodium 139 Potassium 4.1 Chloride 104 Carbon Dioxide 30 Anion Gap 5 BUN 9 Creatinine 0.79 Est Cr Clr Drug Dosing 73.2 eGFR 78.44 BUN/Creatinine Ratio 11.4 Glucose 110 H Calcium 9.6 Total Bilirubin Lactate Dehydrogenase Total Protein Albumin Urine Color Urine Appearance Urine pH Ur Specific Grayson Urine Protein Urine Glucose (UA) Urine Ketones Urine Blood Urine Nitrite Urine Bilirubin Urine Urobilinogen Ur Leukocyte Esterase Urine Comment Fluid Neutrophils % Fluid Lymphocytes % Fluid Meso/Macro/Dallam % Fluid Slide Review Pleural Fluid Source Pleural Color Pleural Appearance Pleural WBC (Auto) Pleural RBC (Auto) Pleural Other Cells Pleural Total Protein Pleural LDH Pleural Glucose Pleural Amylase Diagnostic Findings Chest X-Ray 11/22/24 23:24 Exam(s): XR CXR 1 VIEW EXAM: XR Chest, 1 View CLINICAL HISTORY: chest pain. TECHNIQUE: Frontal view of the chest. COMPARISON: Portable chest single view 11/22/2024 FINDINGS: Lungs: The lungs are somewhat hypoexpanded, but there is improved aeration when compared to the prior examination. Similar right infrahilar changes. Subsegmental changes of the left lung base suggested. Evaluation is somewhat limited by overlying soft tissues. Pleural space: The left costophrenic margin is somewhat obscured. No large pleural effusion noted. The right costophrenic margin is sharp. Heart: The cardiac silhouette is presumed accentuated by portable technique. Mediastinum: No significant abnormality identified. The trachea is midline. Bones/joints: Unremarkable. No acute fracture. IMPRESSION: The lungs are somewhat hypoexpanded, but there is improved aeration when compared to the prior examination. Similar right infrahilar changes may represent atelectasis or subtle infection. Subsegmental changes of the left lung base suggested. Evaluation is somewhat limited by overlying soft tissues. Small left pleural effusion is not excluded. Electronically signed by: Earl Sexton MD 11/23/24 01:39 AM PG Care Time/CCT Total # of Minutes Spent Total Time Spent with Patient: Total time spent is greater than 50% in coordination of care (as documented) at patient's floor/unit and/or counseling patient: Coding Level of Care Code 24521 SUB INP/OBS CARE 2/35MIN Diagnoses Shortness of breath R06.02 Pleural effusion J90 Pleuritic chest pain R07.81
[2024-11-23] MEDS: DOCUSATE SODIUM 100 MG CAP PO ONE (19:37)
[2024-11-24 07:35] LABS: Hematocrit (blood only) 29.4 % (37.0-47.0); Hemoglobin 9.4 g/dl (12.0-16.0); Mean Corpuscular Hemoglobin 27.8 pg (25.0-34.0); Mean Corpuscular Volume 87.0 fL (80.0-100.0); Platelet Count 925 K/uL (130-400); RDW Standard Deviation 46.5 fL (36.4-46.3); Red Blood Count 3.38 M/uL (4.20-5.40); White Blood Count 20.93 K/ul (4.8-10.8)
[2024-11-24] MEDS ORDERED: VANCOMYCIN CONSULT ACTIVE PRN (07:51)
[2024-11-24 07:58] LABS: Anion Gap 6.0 (3-11); Blood Urea Nitrogen 7.0 mg/dl (6-23); Calcium 9.6 mg/dl (8.6-10.3); Carbon Dioxide 28.0 mmol/L (21-32); Chloride 104.0 mmol/L (98-107); Creatinine Clr Calc Pharmacy 80.3 ml/min; Glucose 107.0 mg/dl (70-99(Fasting)); Potassium 4.0 mmol/L (3.5-5.1); Sodium 138.0 mmol/L (136-145)
[2024-11-24] MEDS: VANCOMYCIN HCL 2,000 MG in SODIUM CHLORIDE 0.9% 500 ML IV ONE (09:46)
--- NOTE | 2024-11-24 10:43 | Hospitalist Progress Note ---
Date of Service November 24, 2024 Assessment & Plan (1) Pleural effusion: Plan: Patient presents to the hospital worsening shortness of breath. Found to have bilateral pleural effusion, left more than the right Recently had surgery for pancreatic cyst and also had peripancreatic fluid collection. The etiology of the pleural effusion could be multifactorial. Thoracentesis was done with removal of 1.1L of fluid with exudative picture, gram stain pending 2D echo done 11/04/24 shows Ejection fraction 55 to 60%, with grade 1 diastolic dysfunction, BNP is wnl Appreciate pulm (2) Intra-abdominal fluid collection: Plan: Patient recently had a surgery for pancreatic cyst at [facility] and later developed peripancreatic fluid collection. CT abdomen and pelvis still shows some evidence of peripancreatic fluid collection, which could be abscess or seroma Patient is afebrile, WBC which was elevated a few days ago has been trending up Will repeat CT abd with IV contrast Will continue IV Zosyn Plan disposition: hopefully d/c in the next 24 hrs Full code Admission and Anticipated Discharge Date Admission Date: November 22, 2024 Subjective patient seen and examined, feels better today Review of Systems Review of Systems: All systems reviewed are negative, apart from the ones contained in the history. Physical Exam Physical Exam: The patient is awake, alert and oriented 3, well developed and well nourished, normocephalic and atraumatic, lying in bed and in no acute distress. HEENT--PERRL, EOMI, mucous membranes and oropharynx mildly dry Neck--supple. No JVD. No bruits. Thyroid normal, trachea midline, no adenopathy. Heart--normal S1 and S2. No murmurs, rubs or gallops. Lungs-Reduced air entry on auscultation Abdomen--normal bowel sounds and soft. Extremities--no cyanosis or clubbing. Trace edema. Dermatologic--normal skin turgor, normal color, no abnormal lymph nodes, no rash. Neurologic--cranial nerves II through XII grossly intact. Rheumatologic--normal range of motion. Psychiatric--normal affect. Results & Data Results & Data Vital Signs (Past 12 Hours) Vital Signs Temp Pulse Resp BP Pulse Ox O2 Del Method 11/24/24 07:50 Room Air 11/24/24 07:08 99.0 F 82 16 149/67 H 93 Room Air PG Care Time/CCT Total # of Minutes Spent Total Time Spent with Patient: Total time spent is greater than 50% in coordination of care (as documented) at patient's floor/unit and/or counseling patient: Coding Level of Care Code 38193 SUB INP/OBS CARE 2/35MIN Diagnoses Pleural effusion J90 Intra-abdominal fluid collection R18.8 Time Spent (min) 35
[2024-11-24] MEDS: OPTIRAY 320 100ml IV ONE (13:19)
--- NOTE | 2024-11-24 13:24 | Pulmonology Progress Note ---
<Statement entered by Sidney Hyde MD - 11/24/24 16:07> I, Sidney Hyde MD, supervised and reviewed the physical exam, assessment, plan, and management as documented by the Advanced Care Provider for this patient encounter. I discussed the case with them, confirmed the findings, and I concur with the proposed plan of care. I was available for consultation throughout the encounter and provided guidance as needed. Date of Service November 24, 2024 Assessment & Plan (1) Shortness of breath: (2) Pleural effusion: (3) Pleuritic chest pain: Plan Vianca Jaquez is a 74-year-old female with past medical history of urinary urgency, hypothyroidism, anxiety, and sleep apnea on CPAP; who presented to [facility] with shortness fo breath and and pain in her low back. 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 Patient was doing well postoperatively but developed shortness of breath, left shoulder pain pain, and chest pain on 11/17/24. She was evaluated in the ED at [facility] at the time and transferred to [facility] Patient was discharged to home on 11/20/24 after being treated for a pancreatic fluid collection with antibiotics. Patient on 11/22/2024 had reoccurrence of her pain and shortness of breath prompting her to come to [facility] ED for evaluation. In the ED a CT of the chest showed a large left pleural effusion. Patient denies cough, fevers, chills, and night sweats. She endorses shortness of breath. She complains of left lower back pain. Pulmonary consulted for evaluation and possible thoracentesis of the left pleural effusion. Thoracentesis on 11/22 with 1100 removed. Left pleural effusion r/t possible reactive from recent pancreas cyst removal and splenectomy v. other.; Shortness of breath -CT chest showed large left pleural effusion. -Thoracentesis performed with 1100 serosanguineous pleural fluid removed 11/22. -Post thoracentesis CXR showed no pneumothorax. -Pleural fluid differential showed extudative (LDH 340), neutrophil (50%) predominance, pH 7.44, gram stain negative, path pending. -Pain control with IV tylenol and oxycodone. Patient having some persistent discomfort but improved from yesterday. -Pulmonary to follow -Antibiotics escalated to Zosyn and vancomycin d/t leukocytosis. -Will need pulm clinic follow up after discharge. 37 minutes is the time spent reviewing the chart, obtaining history, performing the physical exam, and updating the patient sugey bedside nurse. Thank you for allowing us to participate in this patient's care. please feel free to reach out with questions or concerns. Admission and Anticipated Discharge Date Admission Date: November 22, 2024 Subjective Patient pain better controlled with less Tylenol. She is ambulating and has no SOB. Patient does have leukocytosis increased WBC to 20 this am. Noted left lateral/LUQ firmness not noted before. CT abdomen and pelvis ordered. Pleural fluid cultures remain no growth to date. Review of Systems 2 Review of Systems: All systems reviewed & are unremarkable except as noted in HPI & below Physical Exam 2 Physical Exam: VITALS: Reviewed. WEIGHT/BMI reviewed. GEN: Healthy appearing, well-developed, NAD. PSYCH: Good Judgment. AOx3. Normal memory, mood, and affect. HEENT -Head: NC/AT; -Eyes: PERRL, EOMI. No discharge or redn ess; -Ears: External ears are normal. -Nose: Normal nares. NECK: Supple, with no masses. CV: RRR, no m/r/g. LUNGS: Clear in b/l upper lobes, diminished in bases L>R. Chest rise symmetrical. Breathing mildly labored. ABD: N/A : N/A SKIN: Warm, well perfused. No skin rashes or abnormal lesions. MSK: No deformities, Normal gait. EXT: No clubbing, cyanosis, or edema. NEURO: Ambulating with no limitations. Normal muscle strength and tone. No focal deficits. Results & Data Results & Data Vital Signs (Past 12 Hours) Vital Signs Temp Pulse Resp BP Pulse Ox O2 Del Method 11/24/24 07:50 Room Air 11/24/24 07:08 37.2 C 82 16 149/67 H 93 Room Air Laboratory Results 11/24/24 06:54 11/24/24 06:54 Abnormal Lab Results 11/24/24 06:54 WBC 20.93 H RBC 3.38 L Hgb 9.4 L Hct 29.4 L MCV 87.0 MCH 27.8 MCHC 32.0 RDW Std Deviation 46.5 H RDW Coeff of Cheri 14.6 H Plt Count 925 H MPV 11.4 Absolute Nucleated RBC 0.02 Nucleated RBC % (auto) 0.1 Sodium 138 Potassium 4.0 Chloride 104 Carbon Dioxide 28 Anion Gap 6 BUN 7 Creatinine 0.72 Est Cr Clr Drug Dosing 80.3 eGFR 87.68 BUN/Creatinine Ratio 9.7 L Glucose 107 H Calcium 9.6 Diagnostic Findings No recent imaging. PG Care Time/CCT Total # of Minutes Spent Total Time Spent with Patient: Total time spent is greater than 50% in coordination of care (as documented) at patient's floor/unit and/or counseling patient: Coding Level of Care Code 11505 SUB INP/OBS CARE 2/35MIN Diagnoses Shortness of breath R06.02 Pleural effusion J90 Pleuritic chest pain R07.81
--- NOTE | 2024-11-24 14:49 | Pharmacy Report ---
Pharmacy PK ABX Note - Date of Service November 24, 2024 - Assessment and Plan Assessment 74 year old F admitted 11/22 with shortness of breath and pain in her lower back. 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 On 11/17 she developed SOB and chest pain and was admitted to outside facility, treated with Augmentin for pancreatic fluid collection, and discharged 11/20. Two days later she had reoccurrence of SOB and was admitted with a large left pleural effusion and peripancreatic fluid collection. Zosyn was started at that time and a thoracentesis was performed. Worsening leukocytosis (WBC 20.9 today) so antibiotic coverage was broadened by adding vancomycin * Blood cultures x 2 from 11/22 are no growth to date. * Pleural fluid cultures from 11/22--1 is pending, the other is no growth to date. Day #1 vancomycin Plan Vancomycin * Loading dose: 2000 mg IV x 1 * Maintenance dose: 1500 mg IV every 24 hours * Regimen is predicted to achieve target AUC/LORENZA of 400-600 mg/L.hr * Random level will be ordered if vancomycin is extended behold the 48 hour empiric dosing Zosyn 4.5hm iv q 8 hours.. Pharmacy will continue to follow and will adjust dose/frequency as necessary. Thank you. Pharmacy has transitioned to AUC monitoring for vancomycin. AUC/LORENZA is the preferred PK/PD target and is associated with decreased risk of nephrotoxicity compared to traditional trough targets.
--- NOTE | 2024-11-24 16:01 | CT Scan Report ---
CT SCAN OF THE ABDOMEN AND PELVIS WITH IV CONTRAST CLINICAL HISTORY: Follow-up fluid collection. Recent splenectomy. COMPARISON STUDY: Prior abdominal CT scans, most recently dated 11/22/2024. TECHNIQUE: Following the IV administration of 93 of Optiray 320, CT scan of the abdomen and pelvis wa s performed from the lung bases to the proximal femora. Images are reviewed in the axial, sagittal, a nd coronal planes. IV contrast was administered without complication. A dose lowering technique was u tilized adhering to the principles of ALARA. CT DOSE: 1549.61 mGy.cm FINDINGS: Lower chest: The heart is normal in size and without pericardial effusion. There is coronary artery a therosclerosis. There are small right and moderate left pleural effusions with dependent consolidatio n. Liver: The contrast-enhanced liver is normal in size, contour, and attenuation. There is no intrahepa tic biliary ductal dilatation. The hepatic veins and portal veins are patent. An 11 mm cyst is again seen in the left hepatic lobe. Gallbladder: Unremarkable. Spleen: The spleen is surgically absent. Pancreas: The distal pancreas is surgically absent. The proximal pancreas is atrophic. The duct is no rmal in caliber. Adrenal glands: Unremarkable. Kidneys: The contrast enhanced kidneys are normal in size and without hydronephrosis. The kidneys enh ance symmetrically. A punctate nonobstructing calculus is seen on the left. No ureteral stone is iden tified. Abdominal vasculature: The abdominal aorta is normal in course and caliber noting mild atheroscleroti c calcification. Stomach and bowel: There is a small hiatal hernia. There is postsurgical change from previous gastric resection. No bowel obstruction is seen. There is moderate colonic diverticulosis without CT evidenc e of acute diverticulitis. The appendix is well-visualized and normal. Peritoneum: No intraperitoneal free air is seen. There is a small volume of pelvic ascites. A midline surgical incision is noted. Again seen is an approximately 8 x 12.5 x 8.5 cm fluid collection with m ild peritoneal thickening/enhancement in the left upper quadrant in the splenectomy bed approximating the pancreatic resection margin. This is best seen on image #117. There are additional blood product s an fluid seen below the left hemidiaphragm and adjacent the upper pole of left kidney. Lymphadenopathy: None. Pelvic viscera: The bladder is decompressed and grossly unremarkable. The uterus is surgically absent . No adnexal lesion is seen. Skeletal structures: The skeletal structures are osteopenic. There is mild lumbosacral spondylosis an d scoliosis. No lytic or blastic lesions are seen. IMPRESSION: 1. Again seen is postsurgical change from distal pancreatectomy and splenectomy. 2. Again seen is an approximately 8 x 12.5 x 8.5 cm fluid collection in the splenectomy bed approxima ting the pancreatic resection margin. This could represent a seroma or possibly developing pseudocyst , and this is similar in appearance to the 11/22/2024 examination. The sterility of this fluid cannot be assessed by imaging. 3. Additional blood product and fluid is seen in the left upper quadrant below the left hemidiaphragm and approximating the upper pole of the left kidney. 4. Small right and moderate left pleural effusions with dependent consolidation. 5. Small volume pelvic ascites. 6. Left-sided nephrolithiasis. 7. Additional findings as above. ACT 112: Negative or not required by law. Electronically signed by: Angel Miller M.D. 11/24/2024 3:59 PM
[2024-11-25] MEDS: VANCOMYCIN HCL 1,500 MG in SODIUM CHLORIDE 0.9% 500 ML IV SCH (05:59)
[2024-11-25 07:30] LABS: Hematocrit (blood only) 27.6 % (37.0-47.0); Hemoglobin 9.2 g/dl (12.0-16.0); Mean Corpuscular Hemoglobin 28.8 pg (25.0-34.0); Mean Corpuscular Volume 86.5 fL (80.0-100.0); Platelet Count 952 K/uL (130-400); RDW Standard Deviation 46.5 fL (36.4-46.3); Red Blood Count 3.19 M/uL (4.20-5.40); White Blood Count 18.61 K/ul (4.8-10.8)
[2024-11-25 07:47] LABS: Anion Gap 5.0 (3-11); Blood Urea Nitrogen 9.0 mg/dl (6-23); Calcium 9.5 mg/dl (8.6-10.3); Carbon Dioxide 27.0 mmol/L (21-32); Chloride 106.0 mmol/L (98-107); Creatinine Clr Calc Pharmacy 81.5 ml/min; Glucose 104.0 mg/dl (70-99(Fasting)); Potassium 3.8 mmol/L (3.5-5.1); Sodium 138.0 mmol/L (136-145)
--- NOTE | 2024-11-25 10:36 | Pulmonology Progress Note ---
<Statement entered by Sidney Hyde MD - 11/25/24 14:05> I, Sidney Hyde MD, supervised and reviewed the physical exam, assessment, plan, and management as documented by the Advanced Care Provider for this patient encounter. I discussed the case with them, confirmed the findings, and I concur with the proposed plan of care. I was available for consultation throughout the encounter and provided guidance as needed. Date of Service November 25, 2024 Assessment & Plan (1) Shortness of breath: (2) Pleural effusion: (3) Pleuritic chest pain: Plan Vianca Jaquez is a 74-year-old female with past medical history of urinary urgency, hypothyroidism, anxiety, and sleep apnea on CPAP; who presented to [facility] with shortness fo breath and and pain in her low back. 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 Patient was doing well postoperatively but developed shortness of breath, left shoulder pain pain, and chest pain on 11/17/24. She was evaluated in the ED at [facility] at the time and transferred to [facility]. Patient was discharged to home on 11/20/24 after being treated for a pancreatic fluid collection with antibiotics. Patient on 11/22/2024 had reoccurrence of her pain and shortness of breath prompting her to come to [facility] ED for evaluation. In the ED a CT of the chest showed a large left pleural effusion. Patient denies cough, fevers, chills, and night sweats. She endorses shortness of breath. She complains of left lower back pain. Pulmonary consulted for evaluation and possible thoracentesis of the left pleural effusion. Thoracentesis on 11/22 with 1100 removed. Left pleural effusion r/t possible reactive from recent pancreas cyst removal and splenectomy v. other.; Shortness of breath -CT chest showed large left pleural effusion. -Thoracentesis performed with 1100 serosanguineous pleural fluid removed 11/22. -Post thoracentesis CXR showed no pneumothorax. -Pleural fluid differential showed extudative (LDH 340), neutrophil (50%) predominance, pH 7.44, gram stain negative, culture prelim negative, path pending. -Pain control with IV tylenol and oxycodone. Patient having some persistent discomfort but improved from yesterday. -Pulmonary to follow -Antibiotics escalated to Zosyn and vancomycin d/t leukocytosis. -Will need pulm clinic follow up after discharge. 38 minutes is the time spent reviewing the chart, obtaining history, performing the physical exam, and updating the patient sugey bedside nurse. Thank you for allowing us to participate in this patient's care. Please feel free to reach out with questions or concerns. Admission and Anticipated Discharge Date Admission Date: November 22, 2024 Subjective Patient doing well from pulmonary standpoint on room air with SpO2 95% or above on room air. Patient had CT abdomen and pelvis om 11/23/24 which showed a LUQ fluid collection and underwent an IR guided drain placement today. Pleural fluid cultures remain negative. Pathology showed numerous reactive mesothelial cells. Will continue to follow pleural fluid studies and follow up with patient in outpatint clinic. Review of Systems 2 Review of Systems: All systems reviewed & are unremarkable except as noted in HPI & below Physical Exam 2 Physical Exam: VITALS: Reviewed. WEIGHT/BMI reviewed. GEN: Healthy appearing, well-developed, NAD. PSYCH: Good Judgment. AOx3. Normal memory, mood, and affect. HEENT -Head: NC/AT; -Eyes: PERRL, EOMI. No discharge or redn ess; -Ears: External ears are normal. -Nose: Normal nares. NECK: Supple, with no masses. CV: RRR, no m/r/g. LUNGS: Clear in b/l upper lobes, diminished in bases L>R. Chest rise symmetrical. Breathing mildly labored. ABD: Left upper quad drain. : N/A SKIN: Warm, well perfused. No skin rashes or abnormal lesions. MSK: No deformities, Normal gait. EXT: No clubbing, cyanosis, or edema. NEURO: Ambulating with no limitations. Normal muscle strength and tone. No focal deficits. Results & Data Results & Data Vital Signs (Past 12 Hours) Vital Signs Temp Pulse Resp BP Pulse Ox O2 Del Method 11/25/24 07:20 Room Air 11/25/24 07:17 37 C 78 16 134/81 95 Room Air 11/24/24 22:45 37.4 C 70 16 129/77 93 CPAP Laboratory Results 11/25/24 06:37 11/25/24 06:37 Abnormal Lab Results 11/25/24 11/25/24 06:37 12:00 WBC 18.61 H RBC 3.19 L Hgb 9.2 L Hct 27.6 L MCV 86.5 MCH 28.8 MCHC 33.3 RDW Std Deviation 46.5 H RDW Coeff of Cheri 14.6 H Plt Count 952 H MPV 11.8 Absolute Nucleated RBC 0.03 Nucleated RBC % (auto) 0.2 Sodium 138 Potassium 3.8 Chloride 106 Carbon Dioxide 27 Anion Gap 5 BUN 9 Creatinine 0.71 Est Cr Clr Drug Dosing 81.5 eGFR 89.17 BUN/Creatinine Ratio 12.7 Glucose 104 H Calcium 9.5 Fluid Comment Peritoneal Glucose 22 Diagnostic Findings Abdomen/Pelvis CT 11/24/24 10:39 CT SCAN OF THE ABDOMEN AND PELVIS WITH IV CONTRAST CLINICAL HISTORY: Follow-up fluid collection. Recent splenectomy. COMPARISON STUDY: Prior abdominal CT scans, most recently dated 11/22/2024. TECHNIQUE: Following the IV administration of 93 of Optiray 320, CT scan of the abdomen and pelvis was performed from the lung bases to the proximal femora. Images are reviewed in the axial, sagittal, and coronal planes. IV contrast was administered without complication. A dose lowering technique was utilized adhering to the principles of ALARA. CT DOSE: 1549.61 mGy.cm FINDINGS: Lower chest: The heart is normal in size and without pericardial effusion. There is coronary artery atherosclerosis. There are small right and moderate left pleural effusions with dependent consolidation. Liver: The contrast-enhanced liver is normal in size, contour, and attenuation. There is no intrahepatic biliary ductal dilatation. The hepatic veins and portal veins are patent. An 11 mm cyst is again seen in the left hepatic lobe. Gallbladder: Unremarkable. Spleen: The spleen is surgically absent. Pancreas: The distal pancreas is surgically absent. The proximal pancreas is atrophic. The duct is normal in caliber. Adrenal glands: Unremarkable. Kidneys: The contrast enhanced kidneys are normal in size and without hydronephrosis. The kidneys enhance symmetrically. A punctate nonobstructing calculus is seen on the left. No ureteral stone is identified. Abdominal vasculature: The abdominal aorta is normal in course and caliber noting mild atherosclerotic calcification. Stomach and bowel: There is a small hiatal hernia. There is postsurgical change from previous gastric resection. No bowel obstruction is seen. There is moderate colonic diverticulosis without CT evidence of acute diverticulitis. The appendix is well-visualized and normal. Peritoneum: No intraperitoneal free air is seen. There is a small volume of pelvic ascites. A midline surgical incision is noted. Again seen is an approximately 8 x 12.5 x 8.5 cm fluid collection with mild peritoneal thickening/enhancement in the left upper quadrant in the splenectomy bed approximating the pancreatic resection margin. This is best seen on image #117. There are additional blood products an fluid seen below the left hemidiaphragm and adjacent the upper pole of left kidney. Lymphadenopathy: None. Pelvic viscera: The bladder is decompressed and grossly unremarkable. The uterus is surgically absent. No adnexal lesion is seen. Skeletal structures: The skeletal structures are osteopenic. There is mild lumbosacral spondylosis and scoliosis. No lytic or blastic lesions are seen. IMPRESSION: 1. Again seen is postsurgical change from distal pancreatectomy and splenectomy. 2. Again seen is an approximately 8 x 12.5 x 8.5 cm fluid collection in the splenectomy bed approximating the pancreatic resection margin. This could represent a seroma or possibly developing pseudocyst, and this is similar in appearance to the 11/22/2024 examination. The sterility of this fluid cannot be assessed by imaging. 3. Additional blood product and fluid is seen in the left upper quadrant below the left hemidiaphragm and approximating the upper pole of the left kidney. 4. Small right and moderate left pleural effusions with dependent consolidation. 5. Small volume pelvic ascites. 6. Left-sided nephrolithiasis. 7. Additional findings as above. ACT 112: Negative or not required by law. Electronically signed by: Angel Miller M.D. 11/24/2024 3:59 PM Drainage Catheter Insertion 11/25/24 10:49 CT-guided left upper quadrant fluid collection drain placement INDICATION: Elevated white count; left upper quadrant fluid collection status post splenectomy PROCEDURE: Procedure and risks were explained. Informed consent was obtained. A final timeout was completed. Patient was placed supine on the CT exam table. The left upper quadrant was prepped and draped in sterile fashion. 1% lidocaine was utilized for skin anesthesia. The patient received 50 mcg fentanyl IV. Utilizing CT guidance, an 18-gauge 10 cm Chiba needle was advanced into the left upper quadrant fluid collection. A 0.035 Amplatz wire was introduced and exchanged for a 10 Upper Sorbian locking pigtail catheter. Approximately 350 mL of a purulent appearing fluid was aspirated with a portion sent to the lab for analysis. The catheter was sutured to the skin with 2-0 Prolene and placed to suction bag drainage. Post-CT demonstrated adequate catheter position with significant fluid reduction. The patient tolerated the procedure well. Vital signs will be monitored postprocedure. IMPRESSION: Left upper quadrant drainage catheter placement as above. Performed, dictated, and signed by Earl Dominique PA-C; to be co-signed by Dr. Thee Hussein. PG Care Time/CCT Total # of Minutes Spent Total Time Spent with Patient: Total time spent is greater than 50% in coordination of care (as documented) at patient's floor/unit and/or counseling patient: Coding Level of Care Code 38759 SUB INP/OBS CARE 2/35MIN Diagnoses Shortness of breath R06.02 Pleural effusion J90 Pleuritic chest pain R07.81
[2024-11-25] MEDS: PIPERACILLIN/TAZOBACTAM 4.5 GM/100 ML BAG IV SCH (10:52)
--- NOTE | 2024-11-25 11:34 | Hospitalist Progress Note ---
Date of Service November 25, 2024 Assessment & Plan (1) Pleural effusion: Plan: Patient presents to the hospital worsening shortness of breath. Found to have bilateral pleural effusion, left more than the right Recently had surgery for pancreatic cyst and also had peripancreatic fluid collection. The etiology of the pleural effusion could be multifactorial. Thoracentesis was done with removal of 1.1L of fluid with exudative picture, gram stain pending 2D echo done 11/04/24 shows Ejection fraction 55 to 60%, with grade 1 diastolic dysfunction, BNP is wnl Appreciate pulm (2) Intra-abdominal fluid collection: Plan: Patient recently had a surgery for pancreatic cyst at [facility] and later developed peripancreatic fluid collection. CT abdomen and pelvis still shows some evidence of peripancreatic fluid collection, which could be abscess or seroma Patient is afebrile, WBC which was elevated a few days ago has been trending up Repeat CT abd with IV contrast shows persistent fluid collecttion Will continue IV Zosyn and Vanc Will consult IR for drain placement I spoke to the Surgeon at [facility], Dr Menezes, who was in agreement with placing a drain here She will follow up with him upon discharge Plan disposition: hopefully d/c in the next 24 hrs Full code Admission and Anticipated Discharge Date Admission Date: November 22, 2024 Subjective patient seen and examined, still some mild pain on the flank, but she feels overall better Review of Systems Review of Systems: All systems reviewed are negative, apart from the ones contained in the history. Physical Exam Physical Exam: The patient is awake, alert and oriented 3, well developed and well nourished, normocephalic and atraumatic, lying in bed and in no acute distress. HEENT--PERRL, EOMI, mucous membranes and oropharynx mildly dry Neck--supple. No JVD. No bruits. Thyroid normal, trachea midline, no adenopathy. Heart--normal S1 and S2. No murmurs, rubs or gallops. Lungs-Reduced air entry on auscultation Abdomen--normal bowel sounds and soft. Extremities--no cyanosis or clubbing. Trace edema. Dermatologic--normal skin turgor, normal color, no abnormal lymph nodes, no rash. Neurologic--cranial nerves II through XII grossly intact. Rheumatologic--normal range of motion. Psychiatric--normal affect. Results & Data Results & Data Vital Signs (Past 12 Hours) Vital Signs Temp Pulse Resp BP Pulse Ox O2 Del Method 11/25/24 07:20 Room Air 11/25/24 07:17 98.6 F 78 16 134/81 95 Room Air PG Care Time/CCT Total # of Minutes Spent Total Time Spent with Patient: Total time spent is greater than 50% in coordination of care (as documented) at patient's floor/unit and/or counseling patient: Coding Level of Care Code 00121 SUB INP/OBS CARE 2/35MIN Diagnoses Pleural effusion J90 Intra-abdominal fluid collection R18.8 Time Spent (min) 35
--- NOTE | 2024-11-25 12:56 | CT Scan Report ---
CT-guided left upper quadrant fluid collection drain placement INDICATION: Elevated white count; left upper quadrant fluid collection status post splenectomy PROCEDURE: Procedure and risks were explained. Informed consent was obtained. A final timeout was com pleted. Patient was placed supine on the CT exam table. The left upper quadrant was prepped and drape d in sterile fashion. 1% lidocaine was utilized for skin anesthesia. The patient received 50 mcg fent anyl IV. Utilizing CT guidance, an 18-gauge 10 cm Chiba needle was advanced into the left upper quadrant fluid collection. A 0.035 Amplatz wire was introduced and exchanged for a 10 English locking pigtail cathet er. Approximately 350 mL of a purulent appearing fluid was aspirated with a portion sent to the lab f or analysis. The catheter was sutured to the skin with 2-0 Prolene and placed to suction bag drainage . Post-CT demonstrated adequate catheter position with significant fluid reduction. The patient avani ated the procedure well. Vital signs will be monitored postprocedure. IMPRESSION: Left upper quadrant drainage catheter placement as above. Performed, dictated, and signed by Earl Dominique PA-C; to be co-signed by Dr. Thee Hussein. Electronically signed by: Thee Hussein M.D. 11/25/2024 3:19 PM
[2024-11-25 13:48] LABS: Appearance Peritoneal Fluid Turbid; Color Peritoneal Fluid Brown
[2024-11-26] MEDS ORDERED: VANCOMYCIN LEVEL ONE (06:00)
[2024-11-26] MEDS: VANCOMYCIN LEVEL ONE (06:31)
[2024-11-26 06:46] LABS: Hematocrit (blood only) 27.9 % (37.0-47.0); Hemoglobin 8.9 g/dl (12.0-16.0); Mean Corpuscular Hemoglobin 28.0 pg (25.0-34.0); Mean Corpuscular Volume 87.7 fL (80.0-100.0); Platelet Count 928 K/uL (130-400); RDW Standard Deviation 46.8 fL (36.4-46.3); Red Blood Count 3.18 M/uL (4.20-5.40); White Blood Count 12.97 K/ul (4.8-10.8)
[2024-11-26 07:08] LABS: Anion Gap 3.0 (3-11); Blood Urea Nitrogen 7.0 mg/dl (6-23); Calcium 9.4 mg/dl (8.6-10.3); Carbon Dioxide 30.0 mmol/L (21-32); Chloride 106.0 mmol/L (98-107); Creatinine Clr Calc Pharmacy 81.5 ml/min; Glucose 107.0 mg/dl (70-99(Fasting)); Potassium 4.0 mmol/L (3.5-5.1); Sodium 139.0 mmol/L (136-145)
--- NOTE | 2024-11-26 09:46 | Pharmacy Report ---
Pharmacy PK ABX Note - Date of Service November 26, 2024 - Assessment and Plan Assessment 11/26: Day # 3 vancomycin (+ zosyn). Pleural fluid cultures pending. Renal function stable. Vancomycin trough level this AM drawn appropriately (~24h level) - 7.2mcg/mL. 11/25: 74 year old F admitted 11/22 with shortness of breath and pain in her lower back. 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 On 11/17 she developed SOB and chest pain and was admitted to outside facility, treated with Augmentin for pancreatic fluid collection, and discharged 11/20. Two days later she had reoccurrence of SOB and was admitted with a large left pleural effusion and peripancreatic fluid collection. Zosyn was started at that time and a thoracentesis was performed. Worsening leukocytosis (WBC 20.9 today) so antibiotic coverage was broadened by adding vancomycin * Blood cultures x 2 from 11/22 are no growth to date. * Pleural fluid cultures from 11/22--1 is pending, the other is no growth to date. Day #1 vancomycin Plan Vancomycin * Current regimen: vancomycin 1500mg IV q24h * Trough this AM, 7.2mcg/mL, predicted to achieve ssAUC 410mg/L.hr with a 57% probability * Increase dose to 1gm IV q12h starting later today. Predicted to achieve ssAUC 544mg/L.hr. * Repeat level in ~ 48h if vancomycin continued Pharmacy will continue to follow and will adjust dose/frequency as necessary. Thank you. Pharmacy has transitioned to AUC monitoring for vancomycin. AUC/LORENZA is the preferred PK/PD target and is associated with decreased risk of nephrotoxicity compared to traditional trough targets.
--- NOTE | 2024-11-26 10:26 | Hospitalist Progress Note ---
Date of Service November 26, 2024 Assessment & Plan (1) Pleural effusion: Plan: Patient presents to the hospital worsening shortness of breath. Found to have bilateral pleural effusion, left more than the right Recently had surgery for pancreatic cyst and also had peripancreatic fluid collection. The etiology of the pleural effusion could be multifactorial. Thoracentesis was done with removal of 1.1L of fluid with exudative picture, gram stain pending 2D echo done 11/04/24 shows Ejection fraction 55 to 60%, with grade 1 diastolic dysfunction, BNP is wnl Appreciate pulm (2) Intra-abdominal fluid collection: Plan: Patient recently had a surgery for pancreatic cyst at [facility] and later developed peripancreatic fluid collection. CT abdomen and pelvis still shows some evidence of peripancreatic fluid collection, which could be abscess or seroma Repeat CT abd with IV contrast shows persistent fluid collecttion I spoke to the Surgeon at [facility], Dr Menezes, who was in agreement with placing a drain here She is now s/p drain placement, with removal of inityial 350cc of purulent fluid Sent for gram stain, showing gram positive cocci, full characterization and sensitivity pending Will continue IV Zosyn and Vanc She will follow up with surgery upon discharge Plan disposition: hopefully d/c in the next 24 hrs Full code Admission and Anticipated Discharge Date Admission Date: November 22, 2024 Subjective patient seen and examined, feels overall better Review of Systems Review of Systems: All systems reviewed are negative, apart from the ones contained in the history. Physical Exam Physical Exam: The patient is awake, alert and oriented 3, well developed and well nourished, normocephalic and atraumatic, lying in bed and in no acute distress. HEENT--PERRL, EOMI, mucous membranes and oropharynx mildly dry Neck--supple. No JVD. No bruits. Thyroid normal, trachea midline, no adenopathy. Heart--normal S1 and S2. No murmurs, rubs or gallops. Lungs-Reduced air entry on auscultation Abdomen--normal bowel sounds and soft. Extremities--no cyanosis or clubbing. Trace edema. Dermatologic--normal skin turgor, normal color, no abnormal lymph nodes, no rash. Neurologic--cranial nerves II through XII grossly intact. Rheumatologic--normal range of motion. Psychiatric--normal affect. Results & Data Results & Data Vital Signs (Past 12 Hours) Vital Signs Temp Pulse Resp BP Pulse Ox O2 Del Method 11/26/24 07:25 Room Air 11/26/24 07:19 97.9 F 71 16 124/73 94 Room Air PG Care Time/CCT Total # of Minutes Spent Total Time Spent with Patient: Total time spent is greater than 50% in coordination of care (as documented) at patient's floor/unit and/or counseling patient: Coding Level of Care Code 71513 SUB INP/OBS CARE 2/35MIN Diagnoses Pleural effusion J90 Intra-abdominal fluid collection R18.8 Time Spent (min) 35
[2024-11-26] MEDS: ESCITALOPRAM OXALATE 10 MG TAB PO SCH (11:06)
[2024-11-26] MEDS: VANCOMYCIN HCL / NSS 1,000 MG/270 ML BAG IV SCH (17:27)
[2024-11-27 06:07] LABS: Hematocrit (blood only) 28.5 % (37.0-47.0); Hemoglobin 8.9 g/dl (12.0-16.0); Mean Corpuscular Hemoglobin 27.7 pg (25.0-34.0); Mean Corpuscular Volume 88.8 fL (80.0-100.0); Platelet Count 984 K/uL (130-400); RDW Standard Deviation 47.9 fL (36.4-46.3); Red Blood Count 3.21 M/uL (4.20-5.40); White Blood Count 11.07 K/ul (4.8-10.8)
[2024-11-27 06:20] LABS: Anion Gap 4.0 (3-11); Blood Urea Nitrogen 8.0 mg/dl (6-23); Calcium 9.5 mg/dl (8.6-10.3); Carbon Dioxide 28.0 mmol/L (21-32); Chloride 108.0 mmol/L (98-107); Creatinine Clr Calc Pharmacy 77.1 ml/min; Glucose 103.0 mg/dl (70-99(Fasting)); Potassium 4.1 mmol/L (3.5-5.1); Sodium 140.0 mmol/L (136-145)
--- NOTE | 2024-11-27 07:29 | Electrocardiogram Report ---
Test Reason : Blood Pressure : */* mmHG Vent. Rate : 76 BPM Atrial Rate : 76 BPM P-R Int : 172 ms QRS Dur : 92 ms QT Int : 398 ms P-R-T Axes : 55 -8 22 degrees QTcB Int : 447 ms Normal sinus rhythm with sinus arrhythmia Normal ECG When compared with ECG of 22-Nov-2024 14:15, No significant change was found Confirmed by Ish Graham ([id number]) on 11/27/2024 7:29:13 AM Referred By: David Gomez Confirmed By: Ish Graham
[2024-11-27] MEDS: MoRPHine SULFATE 2 MG/ML CARP IV STA (09:54)
--- NOTE | 2024-11-27 10:47 | Discharge Summary ---
Date of Service November 27, 2024 Admission HPI Per Admitting Provider This is a 74-year-old female with a history of anxiety, pancreatic cyst, status post surgery, who presents to the hospital today with complaints of worsening shortness of breath. Patient was diagnosed with pancreatic and splenic cyst and had surgery at [facility]. Subsequently she developed peripancreatic fluid collection and a drain was inserted, the drain has since been removed. She presents to the hospital today with worsening shortness of breath, denies chest pain denies fever or chills. Here in the emergency department, vital signs stable, blood pressure 120/74 pulse 71 respiratory rate 21 temperature 98 saturating well on room air however a CT scan of the chest was done which showed evidence of bilateral pleural effusion left more than the right and increased in size compared to previous studies a few days ago. It is the patient's wish for her to stay here at [facility] for treatment instead of being transferred to [facility] where she got her surgery. She will be admitted to the hospital, pulmonology consulted for further evaluation and further management. Admission Exam (Per Admitting) Constitutional The patient is awake, alert and oriented 3, well developed and well nourished, normocephalic and atraumatic, lying in bed and in no acute distress. HEENT--PERRL, EOMI, mucous membranes and oropharynx mildly dry Neck--supple. No JVD. No bruits. Thyroid normal, trachea midline, no adenopathy. Heart--normal S1 and S2. No murmurs, rubs or gallops. Lungs--clear bilaterally, no respiratory distress, no accessory muscle use. Abdomen--normal bowel sounds and soft. Extremities--no cyanosis or clubbing. No edema. Dermatologic--normal skin turgor, normal color, no abnormal lymph nodes, no rash. Neurologic--cranial nerves II through XII grossly intact. Rheumatologic--normal range of motion. Psychiatric--normal affect. Discharge Data Consultations 11/22/24 12:33 ED Decision to Admit Stat 11/22/24 15:37 Consult Pulmonology Routine 11/25/24 10:01 Consult General Surgery Routine Hospital Course (1) Pleural effusion: Patient presents to the hospital worsening shortness of breath. Found to have bilateral pleural effusion, left more than the right Recently had surgery for pancreatic cyst and also had peripancreatic fluid collection. The etiology of the pleural effusion could be multifactorial. Thoracentesis was done with removal of 1.1L of fluid with exudative picture, gram stain pending 2D echo done 11/04/24 shows Ejection fraction 55 to 60%, with grade 1 diastolic dysfunction, BNP is wnl Appreciate pulm (2) Intra-abdominal fluid collection: Patient recently had a surgery for pancreatic cyst at [facility] and later developed peripancreatic fluid collection. CT abdomen and pelvis still shows some evidence of peripancreatic fluid collection, which could be abscess or seroma Repeat CT abd with IV contrast shows persistent fluid collecttion I spoke to the Surgeon at [facility], Dr Menezes, who was in agreement with placing a drain here She is now s/p drain placement, with removal of inityial 350cc of purulent fluid Sent for gram stain, showing gram positive cocci, cultures negative She will follow up with surgery upon discharge Home health will manage her drain until her appointment with surgery Discharge on PO Clindamycin 300mg BID for 7 days Plan disposition: hopefully d/c in the next 24 hrs Full code Coding Level of Care Code 75187 INP/OBS DISCH >30 MIN Diagnoses Pleural effusion J90 Intra-abdominal fluid collection R18.8 Time Spent (min) 35
[2024-11-27] MEDS ORDERED: POLYETHYLENE (MIRALAX) 17 GM PACK PO PRN (11:30)
--- NOTE | 2024-11-27 15:45 | Hospitalist Progress Note ---
Date of Service November 27, 2024 Assessment & Plan (1) Pleural effusion: Plan: Patient presents to the hospital worsening shortness of breath. Found to have bilateral pleural effusion, left more than the right Recently had surgery for pancreatic cyst and also had peripancreatic fluid collection. The etiology of the pleural effusion could be multifactorial. Thoracentesis was done with removal of 1.1L of fluid with exudative picture, gram stain pending 2D echo done 11/04/24 shows Ejection fraction 55 to 60%, with grade 1 diastolic dysfunction, BNP is wnl Appreciate pulm (2) Intra-abdominal fluid collection: Plan: Patient recently had a surgery for pancreatic cyst at [facility] and later developed peripancreatic fluid collection. CT abdomen and pelvis still shows some evidence of peripancreatic fluid collection, which could be abscess or seroma Repeat CT abd with IV contrast shows persistent fluid collecttion I spoke to the Surgeon at [facility], Dr Menezes, who was in agreement with placing a drain here She is now s/p drain placement, with removal of inityial 350cc of purulent fluid Sent for gram stain, showing gram positive cocci, Full characterization and sensitivity pending She will follow up with surgery upon discharge Home health will manage her drain until her appointment with surgery Discharge on PO Clindamycin 300mg BID for 7 days Plan disposition: I had wanted to discharge her today, but she continued to complain of flank pain. I obtained a CT scan of the abdomen and pelvis. I have decided to let her stay overnight for possible discharge tomorrow Full code Admission and Anticipated Discharge Date Admission Date: November 22, 2024 Subjective patient seen and examined, feels overall better, But complains of mild flank pain Review of Systems Review of Systems: All systems reviewed are negative, apart from the ones contained in the history. Physical Exam Physical Exam: The patient is awake, alert and oriented 3, well developed and well nourished, normocephalic and atraumatic, lying in bed and in no acute distress. HEENT--PERRL, EOMI, mucous membranes and oropharynx mildly dry Neck--supple. No JVD. No bruits. Thyroid normal, trachea midline, no adenopathy. Heart--normal S1 and S2. No murmurs, rubs or gallops. Lungs-Reduced air entry on auscultation Abdomen--normal bowel sounds and soft. Extremities--no cyanosis or clubbing. Trace edema. Dermatologic--normal skin turgor, normal color, no abnormal lymph nodes, no rash. Neurologic--cranial nerves II through XII grossly intact. Rheumatologic--normal range of motion. Psychiatric--normal affect. Results & Data Results & Data Vital Signs (Past 12 Hours) Vital Signs Temp Pulse Resp BP Pulse Ox O2 Del Method 11/27/24 15:09 98.6 F 69 18 114/74 95 Room Air 11/27/24 07:15 Room Air 11/27/24 07:14 98.2 F 67 18 119/69 90 Room Air PG Care Time/CCT Total # of Minutes Spent Total Time Spent with Patient: Total time spent is greater than 50% in coordination of care (as documented) at patient's floor/unit and/or counseling patient: Coding Level of Care Code 92979 SUB INP/OBS CARE 2/35MIN Diagnoses Pleural effusion J90 Intra-abdominal fluid collection R18.8 Time Spent (min) 35
--- NOTE | 2024-11-27 16:03 | CT Scan Report ---
EXAM: CT Abdomen and Pelvis Without Intravenous Contrast INDICATION: Abdominal pain. TECHNIQUE: Axial computed tomography images of the abdomen and pelvis without intravenous contrast. Sagittal and coronal reformatted images were created and reviewed. This CT exam was performed using one or more of the following dose reduction techniques: automated exposure control, adjustment of the mA and/or kV according to patient size, and/or use of iterative reconstruction technique. COMPARISON: 11/22/2024 FINDINGS: Limitations: None. Lung bases and pleural space: Slight decrease small bilateral pleural effusions left greater than right and compressive atelectasis. Heart: No abnormality noted. Mediastinum: No abnormality noted. ABDOMEN: Liver: Lack of intravenous contrast limits detection of some masses. No abnormality noted. Gallbladder and bile ducts: Dense contents in the gallbladder consistent with vicarious excretion. No ductal dilatation. Pancreas: The distal pancreas is obscured by edema and the collapsed fluid collection. The proximal pancreatic body and head and uncinate 8 appear normal. Spleen: Splenectomy. Adrenals: No significant abnormality noted. Kidneys and ureters: No abnormality noted. No stones. No hydronephrosis. No significant perinephric fluid. Stomach and bowel: Postoperative changes of the stomach. The staple line along the anterior aspect of the affirmation fluid collection demonstrates reduced surrounding edema. The more distal gastric staple line and the staple line at the GE junction is intact. Moderate amounts of stool in the colon. Colonic diverticulosis noted. No diverticulitis. No intestinal obstruction. PELVIS: Appendix: No findings to suggest acute appendicitis. Bladder: Appears normal for the degree of filling. No stones or inflammation. No large mass. Masses may not be detected in the absence of opacification. Reproductive: No abnormalities noted. ABDOMEN and PELVIS: Intraperitoneal space: Persistent but decreased small amounts of layering fluid in the deep pelvis. Bones/joints: No acute changes. Soft tissues: There is increased subcutaneous edema of the left lateral flank. No abdominal wall fluid collection noted. Vasculature: No abdominal aortic aneurysm. Lymph nodes: No pathologically enlarged lymph nodes. Tubes, lines and devices: There is near complete collapse of a fluid cavity in the left upper quadrant into which a pigtail drain has been placed. No fluid noted along the drain. Residual cavity is somewhat serpiginous extending along the stomach with a preserved intra post fat plane and measures approximately 7.1 cm AP by 2.5 cm transverse by approximately 2.8 cm long. There is decreased edema or developing mesenteric infarct in the splenectomy bed with a possible organized to 1.4 cm diameter collection now identified series 2 image 23. IMPRESSION: 1. Near complete collapse of the left abdominal possible pancreatic fluid collection following drain placement. 2. There is persistent but improved edema in the left upper quadrant/splenectomy bed. Possible defining 1.4 cm diameter abscess. 3. Slight decrease small pleural effusions with persistent but slightly improved consolidation in the lung bases. ACT 112: N/A Electronically signed by Krista Daley 11-27-2024 4:03 PM
[2024-11-28] MEDS: LORazepam 0.5 MG TAB PO PRN (01:38)
[2024-11-28 04:47] LABS: Anion Gap 5.0 (3-11); Blood Urea Nitrogen 7.0 mg/dl (6-23); Calcium 9.7 mg/dl (8.6-10.3); Carbon Dioxide 29.0 mmol/L (21-32); Chloride 104.0 mmol/L (98-107); Creatinine Clr Calc Pharmacy 83.8 ml/min; Glucose 96.0 mg/dl (70-99(Fasting)); Potassium 4.0 mmol/L (3.5-5.1); Sodium 138.0 mmol/L (136-145)
[2024-11-28] MEDS: VANCOMYCIN LEVEL ONE (04:55)
[2024-11-28 05:11] LABS: Hematocrit (blood only) 29.7 % (37.0-47.0); Hemoglobin 9.3 g/dl (12.0-16.0); Mean Corpuscular Hemoglobin 28.0 pg (25.0-34.0); Mean Corpuscular Volume 89.5 fL (80.0-100.0); Platelet Count 1081 K/uL (130-400); RDW Standard Deviation 48.5 fL (36.4-46.3); Red Blood Count 3.32 M/uL (4.20-5.40); White Blood Count 11.97 K/ul (4.8-10.8)
[2024-11-28 07:30] VITALS: RESP 16
--- NOTE | 2024-11-28 13:32 | Discharge Summary ---
Discharge Summary Date of Service November 28, 2024 Principal Dx & Hospital Course #1 = Principal Diagnosis (1) Pleural effusion: Patient presents to the hospital worsening shortness of breath. Found to have bilateral pleural effusion, left more than the right Recently had surgery for pancreatic cyst and also had peripancreatic fluid collection. The etiology of the pleural effusion could be multifactorial. Thoracentesis was done with removal of 1.1L of fluid with exudative picture, gram stain pending 2D echo done 11/04/24 shows Ejection fraction 55 to 60%, with grade 1 diastolic dysfunction, BNP is wnl Appreciate pulm (2) Intra-abdominal fluid collection: Patient recently had a surgery for pancreatic cyst at [facility] and later developed peripancreatic fluid collection. CT abdomen and pelvis still shows some evidence of peripancreatic fluid collection, which could be abscess or seroma Repeat CT abd with IV contrast shows persistent fluid collecttion I spoke to the Surgeon at [facility], Dr Menezes, who was in agreement with placing a drain here She is now s/p drain placement, with removal of initial 350cc of purulent fluid Micro growing MSSA She will follow up with surgery upon discharge Home health will manage her drain until her appointment with surgery Discharge on Cefadroxil 500mg po q12h x 7 days Plan disposition: I had wanted to discharge her today, but she continued to complain of flank pain. I obtained a CT scan of the abdomen and pelvis. I have decided to let her stay overnight for possible discharge tomorrow Full code Admission HPI Per Admitting Provider This is a 74-year-old female with a history of anxiety, pancreatic cyst, status post surgery, who presents to the hospital today with complaints of worsening shortness of breath. Patient was diagnosed with pancreatic and splenic cyst and had surgery at [facility]. Subsequently she developed peripancreatic fluid collection and a drain was inserted, the drain has since been removed. She presents to the hospital today with worsening shortness of breath, denies chest pain denies fever or chills. Here in the emergency department, vital signs stable, blood pressure 120/74 pulse 71 respiratory rate 21 temperature 98 saturating well on room air however a CT scan of the chest was done which showed evidence of bilateral pleural effusion left more than the right and increased in size compared to previous studies a few days ago. It is the patient's wish for her to stay here at [facility] for treatment instead of being transferred to [facility] where she got her surgery. She will be admitted to the hospital, pulmonology consulted for further evaluation and further management. Discharge Plan Discharge Items Patient Disposition: Home - Home Health Services Reason For Visit: PLEURAL EFFUSION Discharge Diagnosis: pleural effusion, Condition on Discharge: Fair Activity: Resume your previous activity Non-emergency contact: Primary Care Provider Call non-emergency contact if: you have any medication questions Follow-up/Referrals: David Gomez MD [Primary Care Provider] - 12/09/24 11:00 am [facility] [place] Pulmonology [Provider Group] (call for follow up ) Diet: Regular Addtl Attending Provider Instructions: please follow up with your Surgeon as planned. You will need home health for drain management. You are being sent home with oral antibiotics for additional seven days. Please note that if you started to get worse (fevers, worsening pain, etc), you will need repeat CT scan to evaluate the collection area. Please also follow up with grain drier operator via [facility]. If you are not able, call [facility] pulmonology team for follow up appointment. please have your outpatient team including primary care doctor follow your platelet count Pending Studies at Discharge: No Stand-Alone Forms: [employer], Smoking Cessation Medications and DC Order Prescriptions: New tramadol 50 mg tablet 50 mg PO Q8H Qty: 20 0RF oxycodone 5 mg tablet 5 mg PO Q6H PRN (Reason: pain) Qty: 20 0RF cefadroxil 500 mg capsule 500 mg PO Q12H Qty: 14 0RF Continued (DME) CPAP Supplies Misc See Rx Instructions .ROUTE .MEDSUPPLY Qty: 1 0RF Rx Instructions: CPAP SUPPLIES NEEDED. MASK NEEDED. [employer] Gemtesa 75 mg tablet 75 mg PO DAILY Qty: 90 3RF escitalopram oxalate [Lexapro] 10 mg tablet 10 mg PO QAM Qty: 90 3RF levothyroxine 112 mcg tablet 112 mcg PO DAILY Qty: 90 3RF Patient Comments: QAM cyanocobalamin (vitamin B-12) 1,000 mcg capsule 1,000 mcg PO DAILY Qty: 30 0RF (DME) CPAP Machine Misc See Rx Instructions .ROUTE .MEDSUPPLY Qty: 1 0RF Rx Instructions: Transition to auto titrating CPAP 5 to 8 cm of water, mask, tubing, filters, heated humidity and supplies/ MARLY-99 /Uses TMB solifenacin [Vesicare] 5 mg tablet 5 mg PO DAILY Qty: 90 3RF lorazepam 0.5 mg tablet 0.5 mg PO DAILY PRN (Reason: anxiety) Qty: 20 0RF Rx Instructions: one half to one tablet daily prn cholecalciferol (vitamin D3) [Vitamin D3] 2,000 unit Capsule 2,000 unit PO QAM Multi For Her 50 Plus 400-80 mcg Capsule 1 tab PO QAM omeprazole 40 mg capsule,delayed release(DR/EC) 40 mg PO DAILYBB oxycodone 5 mg tablet 5 mg PO TID PRN (Reason: Pain) metformin 500 mg tablet 1,000 mg PO QAM rosuvastatin 10 mg tablet 10 mg PO DAILY Rx Instructions: TAKE 1 TABLET BY MOUTH EVERY DAY Wegovy 1.7 mg/0.75 mL pen injector 0 mg subcut Q7D Patient Comments: Currently on hold until post-surgery appointment. Original Directions: 1.7mg inj once weekly. 11/17/24 acetaminophen 500 mg Tablet 500 mg PO Q6H PRN (Reason: Pain) Discontinued enoxaparin 40 mg/0.4 mL syringe 40 mg subcut QAM Rx Instructions: Start Date 11/20/24 x6 day supply amoxicillin-pot clavulanate 875-125 mg tablet 1 tab PO BID Discharge Orders: Discharge Order (Routine); Ordered 11/28/24 Ordered By: Nahed Taylor Admission Data Admit Date/Time: 11/22/24 12:38 Attending Provider: Nahed Taylor Admit Provider: Flor Olivares Primary Care Provider: David Gomez Other Providers: Tra Narayan; Elroy Awan; Rajwinder Vogel; Thu Jessica; Jesus Alberto Armstrong; Sidney Hyde; Bridgett Landin; Flor Olivares; [facility]; Alfonzo Narayanan Hospital Stay Data Consultations 11/22/24 12:33 ED Decision to Admit Stat 11/22/24 15:37 Consult Pulmonology Routine 11/25/24 10:01 Consult General Surgery Routine Diagnostic Imagining Performed 11/22/24 10:24 CT Abd and Pelvis [CT abd pelvis IV con only] Stat CT angio chest PE protocol Stat 11/24/24 10:39 CT Abd and Pelvis [CT abd pelvis IV con only] Routine 11/25/24 10:[address] periton/retro w/gdnce Routine 11/27/24 14:33 CT Abd and Pelvis [CT abd pelvis wo con] Routine Pending Results Patient Have Any Pending Studies at Discharge: No Discharge Instructions Given to Patient (Per Discharging Provider) please follow up with your Surgeon as planned. You will need home health for drain management. You are being sent home with oral antibiotics for additional seven days. Please note that if you started to get worse (fevers, worsening pain, etc), you will need repeat CT scan to evaluate the collection area. Please also follow up with grain drier operator via [employer]. If you are not able, call [facility] pulmonology team for follow up appointment. please have your outpatient team including primary care doctor follow your platelet count Total Time Total Time Spent Total Time Spent (In Minutes): 45 Coding Level of Care Code 57611 INP/OBS DISCH >30 MIN Diagnoses Pleural effusion J90 Intra-abdominal fluid collection R18.8
[2024-11-28 15:06] VITALS: BP 118/74; PULSE 78; TEMP 97.9; O2SAT 95
== END 2024-11-28 16:27 | disposition home health service (06) | DRG 186 ==
LOC: ED 09:35 → 3N 12:38 → SUATTDRO 12:38 → 3N 15:18